=== PATIENT | male | born 1935 | race Caucasian/White ===

== ENCOUNTER 2019-12-02 07:23 | Outpatient (CLI) | payer MEDICARE, SELFPAY ==
[2019-12-02 07:34] LABS: Basophils Absolute Auto 0.14 K/mm3 (0.00-0.10); Basophils Percent Auto 1.8 % (0.0-1.0); Eosinophils Absolute Auto 0.37 K/mm3 (0.02-0.50); Eosinophils Percent Auto 4.7 % (1.0-6.0); Hematocrit 42.1 % (37.0-46.0); Hemoglobin 14.2 g/dL (12.4-15.3); Immature Granulocyte Percent A 1.3 % (0.0-0.0); Lymphocytes Absolute Auto 1.34 K/mm3 (1.10-4.50); Lymphocytes Percent Auto 17.1 % (18.0-42.0); Mean Corpuscular HGB Conc 33.7 g/dL (32.0-36.0); Mean Corpuscular Hemoglobin 34.8 pg (27.0-31.0); Mean Corpuscular Volume 103.2 fL (78.0-102.0); Monocytes Absolute Auto 1.03 K/mm3 (0.10-0.90); Monocytes Percent Auto 13.2 % (2.0-11.0); Neutrophils Absolute Auto 4.8 K/mm3 (1.7-7.2); Neutrophils Percent Auto 61.9 % (50.0-70.0); Platelet Count Result 202 K/mm3 (150-420); Red Blood Count 4.08 M/mm3 (4.70-6.10); Red Cell Distribution Width 12.7 % (11.6-14.4); White Blood Count 7.8 K/mm3 (4.8-10.8)
[2019-12-02 07:35] LABS: Add Urine Microscopic? NO; Appearance Urine Clear (Clear); Bilirubin Urine Negative (Negative); Blood Urine Negative (Negative); Color Urine Yellow (Yellow); Glucose Urine UA Negative (Negative); Ketones Urine Negative (Negative); Leukocyte Esterase Ur Negative (Negative); Nitrate Urine Negative (Negative); Protein Urine Negative (Negative)
[2019-12-02 08:17] LABS: Hemoglobin A1C 5.8 % (<5.7)
[2019-12-02 08:59] LABS: Alanine Aminotransferase 43 U/L (16-63); Albumin Level 3.8 g/dL (3.4-5.0); Alkaline Phosphatase 56 U/L (46-116); Anion Gap 12.5 mmol/L (7-16); Aspartate Amino Transferase 33 U/L (15-37); Bilirubin,Total 0.5 mg/dL (0.00-1.00); Blood Urea Nitrogen 17 mg/dL (7-18); Calcium 8.7 mg/dL (8.5-10.1); Carbon Dioxide 28 mmol/L (21-32); Chloride 105 mmol/L (98-108); Cholesterol 167 mg/dL (0-200); Creatine Kinase 160 U/L (39-308); Estimated Glomerular Filt Rate 42; Glucose 110 mg/dL (70-99); HDL Direct 43 mg/dL (40-60); LDL Cholesterol Calculated 89 mg/dL (<130); Osmolality Calculated 294 mOsm/kg (285-295); Potassium 4.5 mmol/L (3.5-5.1); Sodium 141 mmol/L (136-145); Total Protein 7.4 g/dL (6.4-8.2); Triglycerides 176 mg/dL (0-150)
== END 2019-12-02 07:24 | disposition home or self-care (01) ==
PROVIDERS: PCP Internal Medicine; Visit Provider Internal Medicine
DX: E78.2 Mixed hyperlipidemia (principal); R73.01 Impaired fasting glucose; I12.9 Hypertensive chronic kidney disease with stage 1 through stage 4 chronic kidney disease, or unspecified chronic kidney disease; N18.2 Chronic kidney disease, stage 2 (mild)
CPT/HCPCS: 36415; 80053; 80061; 81003; 82550; 83036; 85025

== ENCOUNTER 2020-04-21 10:11 | Outpatient (CLI) | payer MEDICARE, SELFPAY ==
[2020-04-21 10:25] LABS: Basophils Absolute Auto 0.12 K/mm3 (0.00-0.10); Basophils Percent Auto 1.3 % (0.0-1.0); Eosinophils Absolute Auto 0.39 K/mm3 (0.02-0.50); Eosinophils Percent Auto 4.3 % (1.0-6.0); Hematocrit 40.8 % (37.0-46.0); Hemoglobin 13.1 g/dL (12.4-15.3); Immature Granulocyte Percent A 1.1 % (0.0-0.0); Lymphocytes Absolute Auto 1.27 K/mm3 (1.10-4.50); Lymphocytes Percent Auto 14.1 % (18.0-42.0); Mean Corpuscular HGB Conc 32.1 g/dL (32.0-36.0); Mean Corpuscular Hemoglobin 34.6 pg (27.0-31.0); Mean Corpuscular Volume 107.7 fL (78.0-102.0); Monocytes Absolute Auto 1.15 K/mm3 (0.10-0.90); Monocytes Percent Auto 12.8 % (2.0-11.0); Neutrophils Percent Auto 66.4 % (50.0-70.0); Platelet Count Result 215 K/mm3 (150-420); Red Blood Count 3.79 M/mm3 (4.70-6.10); Red Cell Distribution Width 13.2 % (11.6-14.4)
[2020-04-21 10:27] LABS: Appearance Urine Clear (Clear); Bilirubin Urine Negative (Negative); Color Urine Yellow (Yellow); Glucose Urine UA Negative (Negative); Ketones Urine Negative (Negative); Leukocyte Esterase Ur Negative (Negative); Nitrate Urine Negative (Negative); Protein Urine Trace (Negative); Specific Grav Ur >= 1.030 (1.010-1.020); Urobilinogen Urine 0.2 mg/dL (0.2-1.0); pH Urine 5.5 (5.0-8.0)
[2020-04-21 10:36] LABS: Add Urine Microscopic? YES; Bacteria Urine 1+ /hpf; Blood Urine Trace-Intact (Negative); Squamous Epithelial Cell Urine Few /hpf (Few)
[2020-04-21 11:19] LABS: Anion Gap 9 mmol/L (8-16); Blood Urea Nitrogen 20 mg/dL (7-18); Calcium 9.3 mg/dL (8.5-10.1); Carbon Dioxide 27 mmol/L (21-32); Chloride 104 mmol/L (98-108); Estimated Glomerular Filt Rate 38; Glucose 99 mg/dL (70-99); Osmolality Calculated 292 mOsm/kg (285-295); Potassium 4.8 mmol/L (3.5-5.1); Prostate Specific Antigen 5.4 ng/mL (< OR = 4.0); Sodium 140 mmol/L (136-145)
== END 2020-04-21 10:12 | disposition home or self-care (01) ==
LOC: CHSLAB 10:13
PROVIDERS: PCP Internal Medicine; Visit Provider Internal Medicine
DX: N39.0 Urinary tract infection, site not specified (principal); N41.9 Inflammatory disease of prostate, unspecified
CPT/HCPCS: 36415; 80048; 81001; 84153; 85025

== ENCOUNTER 2020-05-05 10:41 | Outpatient (CLI) | payer MEDICARE, SELFPAY ==
[2020-05-05 12:11] LABS: Prostate Specific Antigen 4.9 ng/mL (< OR = 4.0)
== END 2020-05-05 10:42 | disposition home or self-care (01) ==
LOC: CHSLAB 10:43
PROVIDERS: PCP Internal Medicine; Visit Provider Internal Medicine
DX: R97.20 Elevated prostate specific antigen [PSA] (principal)
CPT/HCPCS: 36415; 84153

== ENCOUNTER 2020-06-05 10:54 | Outpatient (CLI) | payer MEDICARE, SELFPAY ==
[2020-06-05 11:19] LABS: Add Urine Microscopic? YES; Appearance Urine Clear (Clear); Bilirubin Urine Negative (Negative); Blood Urine Negative (Negative); Color Urine Yellow (Yellow); Glucose Urine UA Negative (Negative); Ketones Urine Negative (Negative); Leukocyte Esterase Ur 1+ (Negative); Nitrate Urine Negative (Negative); Protein Urine Negative (Negative); Urobilinogen Urine 0.2 mg/dL (0.2-1.0)
[2020-06-05 11:36] LABS: Bacteria Urine Trace /hpf; RBC Urine 0-2 /hpf (0-2); Squamous Epithelial Cell Urine Rare /hpf (Few)
[2020-06-05 12:36] LABS: Prostate Specific Antigen 2.7 ng/mL (< OR = 4.0)
== END 2020-06-05 10:55 | disposition home or self-care (01) ==
PROVIDERS: PCP Internal Medicine; Visit Provider Internal Medicine
DX: R39.14 Feeling of incomplete bladder emptying (principal); R97.20 Elevated prostate specific antigen [PSA]
CPT/HCPCS: 36415; 81001; 84153; 87086

== ENCOUNTER 2020-06-20 07:40 | Outpatient (CLI) | payer MEDICARE, SELFPAY ==
[2020-06-20 07:52] LABS: Appearance Urine Clear (Clear); Basophils Absolute Auto 0.14 K/mm3 (0.00-0.10); Basophils Percent Auto 1.8 % (0.0-1.0); Bilirubin Urine Negative (Negative); Color Urine Yellow (Yellow); Eosinophils Absolute Auto 0.33 K/mm3 (0.02-0.50); Eosinophils Percent Auto 4.2 % (1.0-6.0); Glucose Urine UA Negative (Negative); Hematocrit 42.1 % (37.0-46.0); Hemoglobin 13.7 g/dL (12.4-15.3); Immature Granulocyte Absolute 0.09 K/mm3 (0.00-0.00); Immature Granulocyte Percent A 1.2 % (0.0-0.0); Ketones Urine Negative (Negative); Leukocyte Esterase Ur Negative (Negative); Lymphocytes Percent Auto 16.7 % (18.0-42.0); Mean Corpuscular HGB Conc 32.5 g/dL (32.0-36.0); Mean Corpuscular Hemoglobin 33.8 pg (27.0-31.0); Mean Platelet Volume 9.8 fl (8.7-11.0); Monocytes Absolute Auto 0.99 K/mm3 (0.10-0.90); Monocytes Percent Auto 12.7 % (2.0-11.0); Neutrophils Absolute Auto 4.9 K/mm3 (1.7-7.2); Neutrophils Percent Auto 63.4 % (50.0-70.0); Nitrate Urine Negative (Negative); Platelet Count Result 187 K/mm3 (150-420); Protein Urine Negative (Negative); Red Blood Count 4.05 M/mm3 (4.70-6.10); Red Cell Distribution Width 12.7 % (11.6-14.4); Specific Grav Ur 1.025 (1.010-1.020); Urobilinogen Urine 0.2 mg/dL (0.2-1.0); White Blood Count 7.8 K/mm3 (4.8-10.8)
[2020-06-20 07:56] LABS: Add Urine Microscopic? YES; Bacteria Urine Trace /hpf; Blood Urine Trace (Negative); RBC Urine 0-2 /hpf (0-2); WBC Urine 0-3 /hpf (0-3)
[2020-06-20 08:04] LABS: Hemoglobin A1C 5.2 % (<5.7)
[2020-06-20 08:36] LABS: Alanine Aminotransferase 28 U/L (16-63); Albumin Level 3.9 g/dL (3.4-5.0); Alkaline Phosphatase 57 U/L (46-116); Anion Gap 8 mmol/L (8-16); Aspartate Amino Transferase 24 U/L (15-37); Bilirubin,Total 0.6 mg/dL (0.00-1.00); Blood Urea Nitrogen 21 mg/dL (7-18); Calcium 8.9 mg/dL (8.5-10.1); Carbon Dioxide 29 mmol/L (21-32); Chloride 102 mmol/L (98-108); Cholesterol 183 mg/dL (0-200); Estimated Glomerular Filt Rate 41; Glucose 101 mg/dL (70-99); HDL Direct 44 mg/dL (40-60); LDL Cholesterol Calculated 103 mg/dL (<130); Osmolality Calculated 291 mOsm/kg (285-295); Potassium 4.5 mmol/L (3.5-5.1); Sodium 139 mmol/L (136-145); Total Protein 7.9 g/dL (6.4-8.2); Triglycerides 181 mg/dL (0-150)
== END 2020-06-20 07:41 | disposition home or self-care (01) ==
LOC: CHSLAB 07:42
PROVIDERS: PCP Internal Medicine; Visit Provider Internal Medicine
DX: E78.2 Mixed hyperlipidemia (principal); I12.9 Hypertensive chronic kidney disease with stage 1 through stage 4 chronic kidney disease, or unspecified chronic kidney disease; N18.30 Chronic kidney disease, stage 3 unspecified; R73.01 Impaired fasting glucose
CPT/HCPCS: 36415; 80053; 80061; 81001; 83036; 85025

== ENCOUNTER 2020-08-09 13:21 | Outpatient (CLI) | payer MEDICARE, SELFPAY ==
--- NOTE | ~2020-08-09 | US_ITS ---
EXAMINATION: US carotid duplex BI DATE: 08/09/2020 14:15 INDICATION: Bilateral carotid stenosis. TECHNIQUE: Grayscale, color Doppler, and pulsed Doppler images of the cervical carotid arteries were obtained. The degree of vessel stenosis is placed in one of the following categories: normal, <50%, 5 0-69%, >=70% but less than near-occlusion, near-occlusion, or total occlusion. Note that percent sten osis relative to normal distal artery lumen diameter is indirectly measured from velocity measurement s as described by Blu, et al. Radiology 2003; 229:340-346. COMPARISON: Ultrasound 02/13/2018 FINDINGS: RIGHT: The right common carotid artery (CCA) peak systolic velocity (PSV) is 111 cm/s. The right internal ca rotid artery (ICA) PSV is 108 cm/s. The right ICA end-diastolic velocity (EDV) is 18 cm/s. The right ICA/CCA PSV ratio is 1.0. Grayscale and color Doppler images yield an estimate of <50% diameter reduc tion from plaque in the ICA. There is antegrade flow in the right vertebral artery. LEFT: The left CCA PSV is 119 cm/s. The left ICA PSV is 81 cm/s. The left ICA EDV is 23 cm/s. The left ICA/ CCA PSV ratio is 0.7. Grayscale and color Doppler images yield an estimate of <50% diameter reduction from plaque in the ICA. There is antegrade flow in the left vertebral artery. IMPRESSION: 1. <50% stenosis in the right internal carotid artery. 2. <50% stenosis in the left internal carotid artery. Reviewed, dictated and finalized at location A.
== END 2020-08-09 13:22 | disposition home or self-care (01) ==
LOC: CHSLAB 13:25
PROVIDERS: PCP Internal Medicine; Visit Provider Internal Medicine
DX: I65.23 Occlusion and stenosis of bilateral carotid arteries (principal)
CPT/HCPCS: 93880

== ENCOUNTER 2020-12-21 07:25 | Outpatient (CLI) | payer MEDICARE, SELFPAY ==
[2020-12-21 07:37] LABS: Add Urine Microscopic? YES; Appearance Urine Clear (Clear); Basophils Absolute Auto 0.12 K/mm3 (0.00-0.10); Basophils Percent Auto 1.6 % (0.0-1.0); Bilirubin Urine Negative (Negative); Blood Urine 1+ (Negative); Color Urine Light Yellow (Yellow); Eosinophils Absolute Auto 0.32 K/mm3 (0.02-0.50); Eosinophils Percent Auto 4.3 % (1.0-6.0); Glucose Urine UA Negative (Negative); Hematocrit 42.2 % (37.0-46.0); Hemoglobin 13.8 g/dL (12.4-15.3); Immature Granulocyte Absolute 0.06 K/mm3 (0.00-0.00); Immature Granulocyte Percent A 0.8 % (0.0-0.0); Ketones Urine Negative (Negative); Leukocyte Esterase Ur Negative LEU/UL (Negative); Lymphocytes Absolute Auto 1.27 K/mm3 (1.10-4.50); Lymphocytes Percent Auto 17.2 % (18.0-42.0); Mean Corpuscular HGB Conc 32.7 g/dL (32.0-36.0); Mean Corpuscular Hemoglobin 34.3 pg (27.0-31.0); Monocytes Absolute Auto 0.93 K/mm3 (0.10-0.90); Monocytes Percent Auto 12.6 % (2.0-11.0); Neutrophils Absolute Auto 4.7 K/mm3 (1.7-7.2); Neutrophils Percent Auto 63.5 % (50.0-70.0); Nitrate Urine Negative (Negative); Platelet Count Result 202 K/mm3 (150-420); Protein Urine Negative (Negative); Red Blood Count 4.02 M/mm3 (4.70-6.10); Red Cell Distribution Width 12.5 % (11.6-14.4); Urobilinogen Urine 0.2 mg/dL (0.2-1.0); White Blood Count 7.4 K/mm3 (4.8-10.8)
[2020-12-21 08:16] LABS: Alanine Aminotransferase 39 U/L (16-63); Alkaline Phosphatase 62 U/L (46-116); Anion Gap 10 mmol/L (8-16); Aspartate Amino Transferase 27 U/L (15-37); Bilirubin,Total 0.7 mg/dL (0.00-1.00); Blood Urea Nitrogen 21 mg/dL (7-18); Calcium 8.9 mg/dL (8.5-10.1); Carbon Dioxide 29 mmol/L (21-32); Chloride 103 mmol/L (98-108); Cholesterol 183 mg/dL (0-200); Creatine Kinase 143 U/L (39-308); Estimated Glomerular Filt Rate 42; Glucose 125 mg/dL (70-99); HDL Direct 44 mg/dL (40-60); LDL Cholesterol Calculated 99 mg/dL (<130); Osmolality Calculated 298 mOsm/kg (285-295); Potassium 4.2 mmol/L (3.5-5.1); Sodium 142 mmol/L (136-145); Total Protein 7.6 g/dL (6.4-8.2); Triglycerides 199 mg/dL (0-150)
[2020-12-21 08:21] LABS: Bacteria Urine Trace /hpf; RBC Urine 0-2 /hpf (0-2); WBC Urine None seen /hpf (0-3)
== END 2020-12-21 07:26 | disposition home or self-care (01) ==
LOC: CHSLAB 07:26
PROVIDERS: PCP Internal Medicine; Visit Provider Internal Medicine
DX: E78.2 Mixed hyperlipidemia (principal); I12.9 Hypertensive chronic kidney disease with stage 1 through stage 4 chronic kidney disease, or unspecified chronic kidney disease; N18.30 Chronic kidney disease, stage 3 unspecified; N39.0 Urinary tract infection, site not specified
CPT/HCPCS: 36415; 80053; 80061; 81001; 82550; 85025

== ENCOUNTER 2021-02-01 19:39 | Emergency (ER) | payer MEDICARE, SELFPAY ==
--- NOTE | ~2021-02-01 | XR_ITS ---
EXAMINATION: XR chest 2V 02/01/2021 20:18 INDICATION: Shortness of breath with cough PROCEDURE: 2 view chest COMPARISON: 10/23/2012 FINDINGS: The lungs are clear. The cardiomediastinal silhouette is within normal limits. There are no pleural effusions. There is no pneumothorax suspected. There is apical pleural thickening/scarri ng. IMPRESSION: 1: NO ACUTE CARDIOPULMONARY DISEASE. Reviewed, dictated and finalized at location A.
[2021-02-01 20:01] VITALS: BP 154/62; PULSE 93; RESP 20; TEMP 37.3; O2SAT 95
[2021-02-01 20:14] LABS: Basophils Absolute Auto 0.08 K/mm3 (0.00-0.10); Basophils Percent Auto 0.7 % (0.0-1.0); Eosinophils Absolute Auto 0.06 K/mm3 (0.02-0.50); Eosinophils Percent Auto 0.5 % (1.0-6.0); Hematocrit 37.4 % (37.0-46.0); Hemoglobin 12.3 g/dL (12.4-15.3); Immature Granulocyte Percent A 0.9 % (0.0-0.0); Lymphocytes Absolute Auto 0.77 K/mm3 (1.10-4.50); Lymphocytes Percent Auto 6.9 % (18.0-42.0); Mean Corpuscular HGB Conc 32.9 g/dL (32.0-36.0); Mean Corpuscular Hemoglobin 34.1 pg (27.0-31.0); Mean Corpuscular Volume 103.6 fL (78.0-102.0); Mean Platelet Volume 10.3 fl (8.7-11.0); Monocytes Absolute Auto 1.28 K/mm3 (0.10-0.90); Monocytes Percent Auto 11.4 % (2.0-11.0); Neutrophils Absolute Auto 8.9 K/mm3 (1.7-7.2); Neutrophils Percent Auto 79.6 % (50.0-70.0); Platelet Count Result 176 K/mm3 (150-420); Red Blood Count 3.61 M/mm3 (4.70-6.10); Red Cell Distribution Width 12.8 % (11.6-14.4); White Blood Count 11.2 K/mm3 (4.8-10.8)
[2021-02-01 20:30] LABS: Add Urine Microscopic? YES; Appearance Urine Clear (Clear); Bilirubin Urine Negative (Negative); Blood Urine 2+ (Negative); Color Urine Yellow (Yellow); Glucose Urine UA Negative (Negative); Ketones Urine 1+ (Negative); Leukocyte Esterase Ur Negative (Negative); Nitrate Urine Negative (Negative); Protein Urine 2+ (Negative); pH Urine 6.5 (5.0-8.0)
[2021-02-01 20:31] LABS: Alanine Aminotransferase 31 U/L (16-63); Albumin Level 3.8 g/dL (3.4-5.0); Alkaline Phosphatase 57 U/L (46-116); Anion Gap 10 mmol/L (8-16); Aspartate Amino Transferase 28 U/L (15-37); Bilirubin,Total 1.1 mg/dL (0.00-1.00); Calcium 9.3 mg/dL (8.5-10.1); Carbon Dioxide 27 mmol/L (21-32); Chloride 98 mmol/L (98-108); Estimated CRCL calculation 22 ml/min; Estimated Glomerular Filt Rate 32; Glucose 141 mg/dL (70-99); Potassium 4.6 mmol/L (3.5-5.1); Sodium 135 mmol/L (136-145); Total Protein 8.6 g/dL (6.4-8.2)
[2021-02-01 20:36] LABS: Blood Urea Nitrogen 24 mg/dL (7-18); Osmolality Calculated 286 mOsm/kg (285-295)
--- NOTE | 2021-02-01 20:36 | ED.AMS ---
HPI - Altered Mental Status General Chief Complaint: Weakness Stated Complaint: confusion, congestion Source: patient and family Mode of arrival: ambulatory Limitations: no limitations History of Present Illness HPI narrative: This is a 85-year-old gentleman that lives with family family brings him in because he has had some mild confusion with some currently no fever or chills no shortness of breath no focal weakness no chest pain no abdominal pain, the patient has a history of hypertension, hyperlipidemia and history of BPH and has had prior urinary tract infections. complaint: altered mental status Onset (ago): hour(s) Timing confirmed by: family member Severity: mild Related Data Home Medications Medication Instructions Recorded Confirmed amlodipine 2.5 mg PO HS 02/01/21 02/01/21 aspirin [Baby Aspirin] 81 mg PO HS 02/01/21 02/01/21 citalopram 10 mg PO DAILY 02/01/21 02/01/21 simvastatin 10 mg PO DAILY 02/01/21 02/01/21 tamsulosin 0.4 mg PO HS 02/01/21 02/01/21 Allergies Allergy/AdvReac Type Severity Reaction Status Date / Time No Known Allergies Allergy Verified 02/01/21 20:05 Review of Systems Review of Systems: All systems reviewed & are unremarkable except as noted in HPI and below PMFSH Past Medical History Medical History BPH (benign prostatic hyperplasia) HLD (hyperlipidemia) HTN (hypertension) Exam Const: General: no acute distress and confusion Orientation/consciousness: patient oriented x3 HENMT: Head: normal to inspection Eyes: Conjunctivae: conjunctivae normal Pupils: Equal, round and reactive pupils present Neck: Neck: normal visual inspection and no meningeal signs Chest: Chest palpation & inspection: normal inspection of the chest Resp: Effort & Inspection: normal respiratory effort Auscultation: clear to auscultation bilaterally Cardio: Rate: regular rate Rhythm: regular rhythm GI: GI Palp: Yes Soft to palpation Percussion: Yes normal to percussion : Testes: Testes normal Back/Spine/Pelvis: Back: no CVA tenderness Skin: General skin exam: normal color Rashes: no rashes Neuro: General: moves all extremities, no meningeal signs and no focal motor deficits Extrem: General: normal to inspection and no pedal edema Psych: Mental Status: mental status grossly normal Affect: normal affect Attitude: cooperative Course Course Emergency Course: patient resting comfortably afebrile some mild confusion according to family and this is is a behavior after he is having a urinary tract infection which we will give a g of ceftriaxone IM. Vital Signs Vital signs: Vital Signs Temperature 37.3 C 02/01/21 20:01 Pulse Rate 93 02/01/21 20:01 Respiratory Rate 20 02/01/21 20:01 Blood Pressure 154/62 H 02/01/21 20:01 Pulse Oximetry 95 02/01/21 20:01 Temperature 37.3 C 02/01/21 20:01 Pulse Rate 93 02/01/21 20:01 Respiratory Rate 20 02/01/21 20:01 Blood Pressure 154/62 H 02/01/21 20:01 Pulse Oximetry 95 02/01/21 20:01 MDM - Altered Mental Status Lab Data Result diagrams: 02/01/21 20:10 02/01/21 20:10 Labs: Lab Results 02/01/21 02/01/21 02/01/21 Range/Units 20:10 20:10 20:10 WBC 11.2 H (4.8-10.8) K/mm3 RBC 3.61 L (4.70-6.10) M/mm3 Hgb 12.3 L (12.4-15.3) g/dL Hct 37.4 (37.0-46.0) % MCV 103.6 H (78.0-102.0) fL MCH 34.1 H (27.0-31.0) pg MCHC 32.9 (32.0-36.0) g/dL RDW 12.8 (11.6-14.4) % Plt Count 176 (150-420) K/mm3 MPV 10.3 (8.7-11.0) fl Immature Gran % (Auto) 0.9 H (0.0-0.0) % Neut % (Auto) 79.6 H (50.0-70.0) % Lymph % (Auto) 6.9 L (18.0-42.0) % [place] % (Auto) 11.4 H (2.0-11.0) % Eos % (Auto) 0.5 L (1.0-6.0) % Baso % (Auto) 0.7 (0.0-1.0) % Lymph # (Auto) 0.77 L (1.10-4.50) K/mm3 [place] # (Auto) 1.28 H (0.10-0.90) K/mm3 Eos # (Auto) 0.06 (0.02-0.50) K/mm3
[2021-02-01 20:41] LABS: Bacteria Urine Trace /hpf; Mucus Urine Rare /lpf; Squamous Epithelial Cell Urine None seen /hpf (Few); WBC Urine 0-3 /hpf (0-3)
[2021-02-01] MEDS: cefTRIAXone 1 GM VIAL IM (20:53)
[2021-02-01] MEDS: LIDOCAINE HCL 1% LOCAL INJ 20 ML VIAL (20:53)
[2021-02-01 21:15] VITALS: BP 129/63; PULSE 87; RESP 20; TEMP 37.1; O2SAT 94
== END 2021-02-01 21:16 | disposition home or self-care (01) ==
PROVIDERS: Emergency Provider Emergency Medicine; PCP Internal Medicine
DX: N30.00 Acute cystitis without hematuria (principal); I10 Essential (primary) hypertension; E78.5 Hyperlipidemia, unspecified
CPT/HCPCS: 36415; 71046; 80053; 81001; 85025; 96372; 99283; J0696

== ENCOUNTER 2021-02-03 18:46 | Inpatient (IN) | payer MEDICARE, SELFPAY ==
--- NOTE | ~2021-02-03 | CT_ITS ---
EXAMINATION: CT chest high resolution wo co DATE: 02/08/2021 09:38 INDICATION: Comparison d/t overnight change 02/07/2021 weakness. dx w/ COVID on 02/03/21 TECHNIQUE: Computed tomography (CT) of the chest was performed without intravenous contrast. Addition al 3D reconstructions utilizing coronal maximum intensity projection (MIP) were performed. Automated exposure control and iterative reconstruction technique were employed. The dose-length product was 25 5.68 mGy-cm. COMPARISON: 02/06/2021 FINDINGS: Again seen are bilateral scattered regions of patchy groundglass opacities and more dense consolidati on throughout both lungs with lower lung predominance. There is very subtle interval change with slig ht decrease in size of several of the region of groundglass opacity but oftentimes with suggestion of developing coalescence into smaller regions of increasing density. No new or enlarging regions of svitlana ng disease. No pleural effusion or pneumothorax. Heart size is normal. Atherosclerotic coronary arter y calcification. No pericardial effusion. Thoracic aorta is normal in caliber. No pathologically enla rged thoracic lymphadenopathy. Calcified gallstones at the visualized neck of the gallbladder which i s largely excluded from the [id number]. Couple smaller stones along the cystic duct. Moderate lowe r cervical and mild thoracic spondylosis. Chronic mild anterior wedging at T8. IMPRESSION: 1. Mild evolution of diffuse bilateral lung disease with appearance favoring COVID pneumonia with coa lescence of portions of the groundglass opacities into smaller more dense regions of consolidation/at electasis. No new or enlarging regions of lung disease. Reviewed, dictated and finalized at location A. IMPRESSION: 1. Mild evolution of diffuse bilateral lung disease with appearance favoring CO VID pneumonia with coalescence of portions of the groundglass opacities into sm aller more dense regions of consolidation/atelectasis. No new or enlarging leatha ons of lung disease.
--- NOTE | ~2021-02-03 | XR_ITS ---
XR chest 1V portable 02/16/2021 12:59 Indication: Shortness of breath and cough. Covid 19. Procedure: AP portable chest Comparison: 02/12/2021 Findings: Bibasilar airspace disease, compatible with pneumonia. No significant effusion. Heart size normal. No pneumothorax. No acute osseous abnormality. Impression: 1: Bibasilar airspace disease, compatible with pneumonia. Reviewed, dictated and finalized at location A. Impression: 1: Bibasilar airspace disease, compatible with pneumonia.
--- NOTE | ~2021-02-03 | XR_ITS ---
XR chest 1V portable 02/12/2021 08:52 Indication: Elevated white count. Covid. Shortness of breath. Procedure: AP portable chest Comparison: 02/03/2021 Findings: Bibasilar airspace disease, compatible with pneumonia. No significant interval change. No s ignificant effusion or pneumothorax. No acute osseous abnormality. Impression: 1: Stable bibasilar airspace disease, compatible with pneumonia. Reviewed, dictated and finalized at location A. Impression: 1: Stable bibasilar airspace disease, compatible with pneumonia.
--- NOTE | ~2021-02-03 | CT_ITS ---
EXAMINATION: CTA chest PE protocol DATE: 02/06/2021 12:08 INDICATION: Hypoxia, weakness and TECHNIQUE: Computed tomography angiography (CTA) of the chest was performed with 100 mL Omnipaque-350 intravenous contrast timed to evaluate the pulmonary arteries. Coronal maximum intensity projection 3D-reconstructions were created by the technologist. The dose-length product (DLP) was 386.25 mGy-cm. Automated exposure control and iterative reconstruction technique were employed. COMPARISON: None. FINDINGS: The pulmonary arteries are well-opacified. No pulmonary embolism is identified. There are g roundglass opacities throughout the lungs, worst in the lower lobes and posterior aspect of the right upper lobe. There is no pleural effusion or pneumothorax. There is mild mediastinal and hilar lympha denopathy. The heart size is normal. Stones are present in the nondistended gallbladder. There is mil d thoracic spondylosis. IMPRESSION: 1. No pulmonary embolus identified. 2. Diffuse lung disease in a pattern consistent with COVID 19 pneumonia. Reviewed, dictated and finalized at location A.
--- NOTE | ~2021-02-03 | XR_ITS ---
XR chest 1V portable 02/03/2021 19:19 Indication: Weakness Procedure: AP portable chest Comparison: 05/01/2009 Findings: Patchy infiltrates of the mid and lower lung zones, compatible with pneumonia. No significa nt effusion. No pneumothorax. No edema. No acute osseous abnormality. Impression: 1: Patchy bilateral infiltrates, compatible with pneumonia. Reviewed, dictated and finalized at location A. Impression: 1: Patchy bilateral infiltrates, compatible with pneumonia.
[2021-02-03 19:00] VITALS: BP 115/54; PULSE 88; RESP 20; TEMP 37.2; O2SAT 93
--- NOTE | 2021-02-03 19:08 | ECG_ITS ---
Measurements Intervals [place] Rate: 76 P: 53 CO: 167 QRS: -1 QRSD: 123 T: 1 QT: 371 QTc: 418 Interpretive Statements SINUS RHYTHM RIGHT BUNDLE BRANCH BLOCK BASELINE ARTIFACT- II, III, AVR, AVF ABNORMAL ECG Electronically Signed On 02-05-2021 7:54:12 CDT by Rudolph Gutiererz D.O.
--- NOTE | 2021-02-03 19:19 | ED.WEAKNESS ---
HPI - Weakness General Chief complaint: Weakness Stated complaint: Feeling ill/disoriented Source: patient and family Mode of arrival: ambulatory Limitations: no limitations History of Present Illness HPI Narrative: This is a 5-year-old home history depression BPH chronic kidney disease presents with increasing weakness and had a couple of falls recently, according to family had subjective increase in temperature, fever with no shortness of breath no chest pain no abdominal pain has had progressive weakness was seen here 2 days ago and diagnosed with UTI and started on antibiotics. But the family felt that after couple of falls he is progressively getting weaker confusion is about the same with no improvement since his visit here 2 days ago. Patient denies chest pain, no shortness of breath no abdominal pain, no flank pain denies dysuria or hematuria. MD Complaint: generalized weakness Onset (ago): day(s) Duration: progressively worsening Location: generalized Severity: moderate Relieving factors: none Exacerbating factors: none Associated symptoms: confusion, fever/chills and loss of appetite Related Data Home Medications Medication Instructions Recorded Confirmed amlodipine 2.5 mg PO HS 02/01/21 02/03/21 aspirin [Baby Aspirin] 81 mg PO HS 02/01/21 02/03/21 citalopram 10 mg PO DAILY 02/01/21 02/03/21 simvastatin 10 mg PO DAILY 02/01/21 02/03/21 tamsulosin 0.4 mg PO HS 02/01/21 02/03/21 Allergies Allergy/AdvReac Type Severity Reaction Status Date / Time No Known Allergies Allergy Verified 02/01/21 20:05 Review of Systems Review of Systems: All systems reviewed & are unremarkable except as noted in HPI and below PMFSH Past Medical History Medical History BPH (benign prostatic hyperplasia) HLD (hyperlipidemia) HTN (hypertension) Exam Const: General: no acute distress Orientation/consciousness: patient oriented x3 HENMT: Head: normal to inspection Eyes: Pupils: Equal, round and reactive pupils present EOM: EOMs intact bilaterally Direct Ophthalmoscopy: no photophobia Neck: Neck: normal visual inspection, no lymphadenopathy and no meningeal signs Chest: Chest palpation & inspection: normal inspection of the chest Resp: Effort & Inspection: normal respiratory effort Auscultation: clear to auscultation bilaterally Cardio: Rate: regular rate Rhythm: regular rhythm GI: GI Palp: Yes Soft to palpation Percussion: Yes normal to percussion Urinary Catheter: Urinary Catheter: patent and draining Skin: General skin exam: normal color Rashes: no rashes Neuro: General: patient oriented x3, moves all extremities, no meningeal signs and no focal motor deficits Extrem: General: normal to inspection and no pedal edema Psych: Appearance: disheveled Mental Status: mental status grossly normal Affect: normal affect Course Course Emergency Course: X-ray and labs reviewed with patient and family and will admit the patient to general medicine Critical Care Time Critical Care Time Critical Care Time: No Discharge Plan Discharge Clinical Impression: Pneumonia Qualifiers: Pneumonia type: due to unspecified organism Laterality: unspecified laterality Lung location: lower lobe of lung Qualified Code(s): J18.9 - Pneumonia, unspecified organism Acute renal failure Qualifiers: Acute renal failure type: unspecified Qualified Code(s): N17.9 - Acute kidney failure, unspecified Patient Disposition: Still a Patient Condition: Guarded Prognosis Prescriptions: No Action citalopram 10 mg Tablet 10 mg PO DAILY RF: 0 simvastatin 10 mg Tablet 10 mg PO DAILY RF: 0 amlodipine 2.5 mg Tablet 2.5 mg PO HS RF: 0 tamsulosin 0.4 mg capsule 0.4 mg PO HS RF: 0 aspirin [Baby Aspirin] 81 mg Tablet,Chewable 81 mg PO HS RF: 0 sulfamethoxazole-trimethoprim [Bactrim DS] 800-160 mg tablet 1 tablet PO Q12H Qty: 14 RF: 0 Foll
[2021-02-03] MEDS: SODIUM CHLORIDE 0.9% IV 1,000 ML 999 ML IV CONT (19:27)
[2021-02-03 19:53] VITALS: BP 127/57; RESP 18; TEMP 37.2; O2SAT 94
[2021-02-03 19:56] LABS: Basophils Absolute Auto 0.07 K/mm3 (0.00-0.10); Basophils Percent Auto 0.5 % (0.0-1.0); Eosinophils Absolute Auto 0.02 K/mm3 (0.02-0.50); Eosinophils Percent Auto 0.1 % (1.0-6.0); Hematocrit 34.1 % (37.0-46.0); Hemoglobin 11.6 g/dL (12.4-15.3); Immature Granulocyte Absolute 0.12 K/mm3 (0.00-0.00); Immature Granulocyte Percent A 0.8 % (0.0-0.0); Lymphocytes Absolute Auto 0.35 K/mm3 (1.10-4.50); Lymphocytes Percent Auto 2.4 % (18.0-42.0); Mean Corpuscular Hemoglobin 34.9 pg (27.0-31.0); Mean Corpuscular Volume 102.7 fL (78.0-102.0); Mean Platelet Volume 11.3 fl (8.7-11.0); Monocytes Percent Auto 8.9 % (2.0-11.0); Neutrophils Absolute Auto 12.7 K/mm3 (1.7-7.2); Neutrophils Percent Auto 87.3 % (50.0-70.0); Platelet Count Result 185 K/mm3 (150-420); Red Blood Count 3.32 M/mm3 (4.70-6.10); White Blood Count 14.6 K/mm3 (4.8-10.8)
[2021-02-03 20:04] LABS: INR 1.1; Partial Thromboplastin Time 26.8 SEC (23.90-30.70); Prothrombin Time 11.3 Seconds (9.50-12.10)
[2021-02-03 20:09] LABS: Lactic Acid Reflex 1.3 mmol/L (0.4-2.0)
[2021-02-03 20:12] LABS: Alanine Aminotransferase 133 U/L (16-63); Albumin Level 3.2 g/dL (3.4-5.0); Alkaline Phosphatase 52 U/L (46-116); Anion Gap 12 mmol/L (8-16); Aspartate Amino Transferase 565 U/L (15-37); Bilirubin,Total 0.7 mg/dL (0.00-1.00); Blood Urea Nitrogen 33 mg/dL (7-18); Calcium 8.7 mg/dL (8.5-10.1); Carbon Dioxide 24 mmol/L (21-32); Chloride 97 mmol/L (98-108); Estimated CRCL calculation 19 ml/min; Estimated Glomerular Filt Rate 27; Glucose 121 mg/dL (70-99); Osmolality Calculated 284 mOsm/kg (285-295); Potassium 4.4 mmol/L (3.5-5.1); Sodium 133 mmol/L (136-145); Total Protein 7.7 g/dL (6.4-8.2)
[2021-02-03 20:17] LABS: SARS-CoV-2 Ag Positive (Negative)
[2021-02-03 20:19] LABS: CRP 19.1 mg/dL (0.0-0.9); Troponin I 73.1 ng/L (0.00-60.4)
[2021-02-03 20:20] LABS: NT Pro B Type Natriuretic Pept 404 pg/mL (0-450)
--- NOTE | 2021-02-03 20:37 | PC.NURSE ---
Call placed to floor for bed for full admit. Pts. daughters informed on POC for admission. Pt to go to Rm 210
[2021-02-03 21:06] VITALS: BP 115/61; PULSE 80; RESP 20; TEMP 37.5; O2SAT 94
[2021-02-03 21:48] VITALS: BP 121/63; PULSE 79; RESP 18; TEMP 36.9; O2SAT 95
[2021-02-03] MEDS: ASPIRIN 81 MG CHEWABLE TABLET PO (22:13)
[2021-02-03] MEDS: amLODIPine BESYLATE 2.5 MG TABLET PO (22:13)
[2021-02-03] MEDS: SODIUM CHLORIDE 0.9% IV 1,000 ML 100 ML IV CONT (22:13)
[2021-02-03] MEDS: TAMSULOSIN HCL 0.4 MG CAPSULE PO (22:13)
--- NOTE | 2021-02-03 22:20 | PC.NURSE ---
PAtient admitted to room 210 from ER, is alert and oriented times 3 with no c/o pain, oriemnted to call light and room.
[2021-02-03 22:34] LABS: Add Urine Microscopic? YES; Bilirubin Urine Negative (Negative); Blood Urine 3+ (Negative); Color Urine Yellow (Yellow); Glucose Urine UA Negative (Negative); Ketones Urine 1+ (Negative); Leukocyte Esterase Ur Negative (Negative); Nitrate Urine Negative (Negative); Protein Urine 1+ (Negative); Specific Grav Ur >= 1.030 (1.010-1.020); Urobilinogen Urine 0.2 mg/dL (0.2-1.0)
[2021-02-03 22:41] LABS: Amorphous Sediment Urine Moderate; Appearance Urine Sl Cloudy (Clear); RBC Urine 0-2 /hpf (0-2); Squamous Epithelial Cell Urine Rare /hpf (Few); WBC Urine None seen /hpf (0-3)
[2021-02-03 22:42] LABS: Bacteria Urine 2+ /hpf; Mucus Urine Moderate /lpf
[2021-02-03 23:57] LABS: Troponin I 64.9 ng/L (0.00-60.4)
[2021-02-03 23:58] VITALS: BP 112/53; PULSE 68; PULSE 69; RESP 20; TEMP 37.1; O2SAT 94
[2021-02-04] VITALS (10 sets, daily range): BP systolic 130–164; BP diastolic 55–66; PULSE 69–102; RESP 16–20; TEMP 36.7–39.4; O2SAT 90–96
[2021-02-04 05:38] LABS: Basophils Absolute Auto 0.07 K/mm3 (0.00-0.10); Basophils Percent Auto 0.5 % (0.0-1.0); Eosinophils Absolute Auto 0.08 K/mm3 (0.02-0.50); Eosinophils Percent Auto 0.6 % (1.0-6.0); Hematocrit 32.6 % (37.0-46.0); Hemoglobin 10.8 g/dL (12.4-15.3); Immature Granulocyte Absolute 0.12 K/mm3 (0.00-0.00); Immature Granulocyte Percent A 0.9 % (0.0-0.0); Lymphocytes Absolute Auto 0.68 K/mm3 (1.10-4.50); Mean Corpuscular HGB Conc 33.1 g/dL (32.0-36.0); Mean Corpuscular Hemoglobin 34.5 pg (27.0-31.0); Mean Corpuscular Volume 104.2 fL (78.0-102.0); Monocytes Absolute Auto 1.25 K/mm3 (0.10-0.90); Monocytes Percent Auto 9.3 % (2.0-11.0); Neutrophils Absolute Auto 11.3 K/mm3 (1.7-7.2); Neutrophils Percent Auto 83.7 % (50.0-70.0); Platelet Count Result 175 K/mm3 (150-420); Red Blood Count 3.13 M/mm3 (4.70-6.10); Red Cell Distribution Width 13.2 % (11.6-14.4); White Blood Count 13.5 K/mm3 (4.8-10.8)
[2021-02-04 05:57] LABS: Alanine Aminotransferase 116 U/L (16-63); Albumin Level 2.8 g/dL (3.4-5.0); Alkaline Phosphatase 47 U/L (46-116); Anion Gap 10 mmol/L (8-16); Aspartate Amino Transferase 440 U/L (15-37); Bilirubin,Total 0.5 mg/dL (0.00-1.00); Blood Urea Nitrogen 30 mg/dL (7-18); Carbon Dioxide 24 mmol/L (21-32); Chloride 102 mmol/L (98-108); Estimated CRCL calculation 22 ml/min; Estimated Glomerular Filt Rate 32; Glucose 98 mg/dL (70-99); Osmolality Calculated 288 mOsm/kg (285-295); Potassium 4.2 mmol/L (3.5-5.1); Sodium 136 mmol/L (136-145); Total Protein 6.8 g/dL (6.4-8.2)
[2021-02-04 06:13] LABS: CRP > 10.6 mg/dL (0.0-0.9)
[2021-02-04 06:14] LABS: Troponin I 52.3 ng/L (0.00-60.4)
[2021-02-04] MEDS: SODIUM CHLORIDE 0.9% IV 1,000 ML 100 ML IV CONT ×2 (08:30→17:50)
--- NOTE | 2021-02-04 08:57 | PM.IMHP ---
H&P: HPI History of Present Illness Date/Time: 02/04/21 08:57 this is a 85-year-old patient who presented to urgent care with complaints of multiple falls, fatigue and not feeling well. Patient has a past medical history of BPH, HLD, hypertension. According to patient a couple of weeks ago he started to feel bad he notes that he no longer had taste, he felt fatigued, with an unstable gait. Patient notes that he fell multiple times. He has multiple abrasions on his forehead and the knees bilateral. He did recently visited our ED on 02/01/2021 for mild confusion at that time he was treated for urinary tract infection with Bactrim. Patient notes that his condition did not improve so he came back to our hospital ED. Patient did test positive for Covid he does not have any respiratory symptoms. Patient has been fully vaccinated and does not have any known exposure to Covid. Vital signs 135/55, 94, 20, 98.6, 95% on 3 L nasal cannula. WBCs 14.6, hemoglobin 11.6, hematocrit 34.1, platelets 185, sodium 133, potassium 4.4, BUN 33, creatinine 2.3, lactic acid 1.3, AST 565, ALT 133, troponin 73.1, CRP 19.1, UA positive for protein ketones blood and bacteria, Covid positive. The patient denies SOB, CP, palpitation, extremity numbness, lightheadedness, dizziness, constipation, diarrhea, or fever. Patient does complain of chills and fatigue. <PATY Carrillo - Last Filed: 02/04/21 09:20> Chief Complaint: Fatigue, unstable gait, loss of taste buds <PATY Carrillo - Last Filed: 02/04/21 09:20> Review of Systems Review of Systems: A 14 organ system Review of Systems was performed and pertinent positives included in the HPI, otherwise remaining ROS is negative. <PATY Carrillo - Last Filed: 02/04/21 09:20> [facility] Past Medical History Medical History: Medical History BPH (benign prostatic hyperplasia) HLD (hyperlipidemia) HTN (hypertension) <PATY Carrillo - Last Filed: 02/04/21 09:20> Social History Social History: Social History Smoking status: Never smoker Alcohol intake: current Substance use: never Substance use type: does not use Spiritual care concerns: No <PATY Carrillo - Last Filed: 02/04/21 09:20> Meds Home Medications and Allergies Home medications: Home Medications Medication Instructions Recorded Confirmed Type amlodipine 2.5 mg PO HS 02/01/21 02/03/21 History aspirin [Baby Aspirin] 81 mg PO HS 02/01/21 02/03/21 History citalopram 10 mg PO DAILY 02/01/21 02/03/21 History simvastatin 10 mg PO DAILY 02/01/21 02/03/21 History sulfamethoxazole-trimethoprim 1 tablet PO Q12H #14 tablet 02/01/21 02/03/21 Rx [Bactrim DS] tamsulosin 0.4 mg PO HS 02/01/21 02/03/21 History <PATY Carrillo - Last Filed: 02/04/21 09:20> Allergies/Adverse reactions: Allergies Allergy/AdvReac Type Severity Reaction Status Date / Time No Known Allergies Allergy Verified 02/01/21 20:05 <PATY Carrillo - Last Filed: 02/04/21 09:20> Vital Signs Vital Signs - 24 hr 02/03/21 19:00 02/03/21 19:53 02/03/21 21:06 Temperature 99 F 99 F 99.5 F Pulse Rate 88 80 Respiratory Rate 20 18 20 Blood Pressure 115/54 L 127/57 L 115/61 Pulse Oximetry 93 94 94 02/03/21 21:48 02/03/21 23:58 02/04/21 04:00 Temperature 98.5 F 98.8 F 98.6 F Pulse Rate 79 69 94 Respiratory Rate 18 20 20 Blood Pressure 121/63 112/53 L 135/55 L Pulse Oximetry 95 94 95 <PATY Carrillo - Last Filed: 02/04/21 09:20> Exam Narrative: GENERAL: This is a well-nourished, well-developed patient, in no apparent distress. HEAD: normocephalic, atraumatic. EYES: PERRL. Sclera clear/white. Vision is grossly intact. EARS: External ears normal, auditory canals clear and without drainage, TMs normal without perforation. Hearing grossly intact. N
[2021-02-04] MEDS: CITALOPRAM HYDROBROMIDE 10 MG TABLET PO (09:35)
[2021-02-04] MEDS: ACETAMINOPHEN 500 MG TABLET 1000 MG PO ×2 (09:36→19:57)
[2021-02-04] MEDS: SIMVASTATIN 10 MG TABLET PO (09:36)
[2021-02-04] MEDS: ENOXAPARIN 30 MG/0.3 ML SYRINGE SUB-Q (09:37)
--- NOTE | 2021-02-04 20:19 | PC.NURSE ---
Custom Wood Stair Builder gave PRN tylenol for febrile status of 100.4. Patient very flushed in face. Denies any difficulty breathing or SOB. Noted Sp02 between 85-88% on 3L per nasal cannula. Custom Wood Stair Builder increased O2 to 4L and only at 88-89%. Increased to 5L per nasal cannula. SpO2 at 91%. Patient continues to denies SOB. occupational medicine specialist notified of SP02 and increase in O2. Continue to monitor.
[2021-02-04] MEDS: ASPIRIN 81 MG CHEWABLE TABLET PO (22:08)
[2021-02-04] MEDS: TAMSULOSIN HCL 0.4 MG CAPSULE PO (22:08)
[2021-02-04] MEDS: amLODIPine BESYLATE 2.5 MG TABLET PO (22:08)
--- NOTE | 2021-02-04 22:20 | PC.NURSE ---
Chief Maintenance Supervisor reassessed [id number]. Patient states im comfortable . SOB noted and voiced during activity, none at rest. Continues O2 per nasal cannula at 5L Sp02 between 91-92%. experimental worker updated on patient status. Continue to monitor.
[2021-02-05] VITALS (9 sets, daily range): BP systolic 109–139; BP diastolic 48–80; PULSE 63–92; RESP 16–24; TEMP 36.4–37.5; O2SAT 89–96
[2021-02-05 00:08] LABS: Glucose Point of Care 104 mg/dl (65-105)
[2021-02-05] MEDS: ACETAMINOPHEN 500 MG TABLET 1000 MG PO (04:06)
[2021-02-05] MEDS: SODIUM CHLORIDE 0.9% IV 1,000 ML 100 ML IV CONT (04:07)
[2021-02-05 05:40] LABS: Hematocrit 30.2 % (37.0-46.0); Mean Corpuscular HGB Conc 33.1 g/dL (32.0-36.0); Mean Corpuscular Hemoglobin 35.1 pg (27.0-31.0); Mean Platelet Volume 10.8 fl (8.7-11.0); Platelet Count Result 178 K/mm3 (150-420); Red Blood Count 2.85 M/mm3 (4.70-6.10); Red Cell Distribution Width 13.2 % (11.6-14.4); White Blood Count 16.5 K/mm3 (4.8-10.8)
[2021-02-05 05:57] LABS: Alanine Aminotransferase 94 U/L (16-63); Albumin Level 2.4 g/dL (3.4-5.0); Alkaline Phosphatase 42 U/L (46-116); Anion Gap 9 mmol/L (8-16); Aspartate Amino Transferase 294 U/L (15-37); Bilirubin,Total 0.4 mg/dL (0.00-1.00); Blood Urea Nitrogen 27 mg/dL (7-18); Calcium 7.6 mg/dL (8.5-10.1); Carbon Dioxide 23 mmol/L (21-32); Chloride 104 mmol/L (98-108); Estimated CRCL calculation 26 ml/min; Estimated Glomerular Filt Rate 40; Glucose 95 mg/dL (70-99); Osmolality Calculated 287 mOsm/kg (285-295); Potassium 4.2 mmol/L (3.5-5.1); Sodium 136 mmol/L (136-145)
[2021-02-05 06:03] LABS: CRP 22.7 mg/dL (0.0-0.9)
[2021-02-05 07:43] LABS: INR 1.1; Prothrombin Time 11.7 Seconds (9.50-12.10)
[2021-02-05] MEDS: REMDESIVIR 200 MG/NS 250 ML 200 MG/250 ML BAG 250 MG IVPB (08:10)
[2021-02-05 08:35] LABS: Base Excess ABG -3.8 mmol/L (0-2); HCO3 ABG 20.1 mmol/L (23-29); Oxygen Content ABG 15.8 %vol (16.0-22.0); Oxygen Saturation ABG 95.1 % (95-97); Oxyhemoglobin 94.6 % (94-100); PCO2 ABG 32.6 mmHg (35-45); PO2 ABG 78.4 mmHg (75-85); Total Hemoglobin 11.8 g/dL (12.0-18.0); pH ABG 7.41 (7.35-7.45)
[2021-02-05 08:38] LABS: Device NASAL CANNULA; Modified Allen's Test Pass; Site Drawn LEFT RADIAL
[2021-02-05] MEDS: ENOXAPARIN 30 MG/0.3 ML SYRINGE SUB-Q (08:44)
[2021-02-05] MEDS: CITALOPRAM HYDROBROMIDE 10 MG TABLET PO (08:44)
[2021-02-05] MEDS: DEXAMETHASONE SOD PHOS INJ 4 MG/ML VIAL 6 MG IV PUSH (08:45)
[2021-02-05] MEDS: BUDESONIDE/FORMOTEROL (*SP) 160-4.5 MCG 6 GM INH 2 PUFF INHALATION ×2 (09:00→21:26)
[2021-02-05] MEDS: ALBUTEROL SULFATE (*SP) INHALER 2 PUFF INHALATION ×4 (09:00→21:26)
--- NOTE | 2021-02-05 12:56 | P.PN_ITS ---
Progress Note: A&P Assessment and Plan (1) Pneumonia due to COVID-19 virus: Code(s): U07.1 - COVID-19; J12.82 - Pneumonia due to coronavirus disease 2019 Status: Acute Assessment and Plan: * Patient tested positive for Covid on 02/03/2021 * Chest x-ray indicates pneumonia * WBC 14.6>13.5>16.5 * CRP 19.1>>10>22.7 * Continue azithromycin and Rocephin * Patient with no respiratory issues dexamethasone and remdesivir not started * Pneumonia more than likely bacterial * Started dexamethasone and remdesivir * Started nebulized (2) Acute renal failure: Qualifiers: Acute renal failure type: unspecified Qualified Code(s): N17.9 - Acute kidney failure, unspecified Code(s): N17.9 - Acute kidney failure, unspecified Status: Acute Assessment and Plan: * Creatinine2.31>1.99 >1.65 baseline appears to be at 1.50, trending down * Possibly secondary to infection * Avoid nephrotoxic agents * Renal dose medication (3) HTN (hypertension): Code(s): I10 - Essential (primary) hypertension Status: Acute Assessment and Plan: * Stable * Continue amlodipine * Vital signs as ordered * Will adjust medication as needed (4) HLD (hyperlipidemia): Code(s): E78.5 - Hyperlipidemia, unspecified Status: Acute Assessment and Plan: * Statins on hold due to elevated liver enzymes (5) BPH (benign prostatic hyperplasia): Code(s): N40.0 - Benign prostatic hyperplasia without lower urinary tract symptoms Status: Acute Assessment and Plan: * Continue Flomax (6) Elevated transaminase level: Code(s): R74.01 - Elevation of levels of liver transaminase levels Status: Acute Assessment and Plan: * AST 565>440>294 * [id number]>116>94 * Possibly secondary to infection * Trending down * We will continue to monitor * Statins on hold (7) Elevated troponin: Code(s): R77.8 - Other specified abnormalities of plasma proteins Status: Acute Assessment and Plan: * Troponin 73.1> 64.9> 52.3 * Not believed to be cardiac related * EKG sinus rhythm with a heart rate in the 70s * Will treat underlying cause (8) UTI (urinary tract infection): Code(s): N39.0 - Urinary tract infection, site not specified Status: Acute Assessment and Plan: * Patient treated for UTI on 02/01/2021 * Bactrim discontinued no growth in urine culture Subjective Date/time seen: 02/05/21 12:56 please see reports that patient's sats dropped to mid 80s on 4 L nasal cannula oxygen increased to 5 L currently 91%. Patient denies any shortness of breath. Spoke with patient about possible transfer if his condition continues to deteriorate also spoke with patient at that time concerning his CODE STATUS patient notes that he does not want to be intubated patient changed to DNI. Patient will remain here we will manage his care. He does not appear to be in any distress at this time. Patient's vital signs stable blood gas collected no severely significant findings. Patient did not have any complaints at this time Review of Systems Review of Systems: A 14 organ system Review of Systems was performed and pertinent positives included in the HPI, otherwise remaining ROS is negative. Exam Narrative: GENERAL: This is a well-nourished, well-developed patient, in no apparent distress. HEAD: normocephalic, atraumatic. EYES: PERRL. Sclera clear/white. Vision is grossly intact. EARS: External ears normal, auditory canals clear and without drainage, TMs normal
--- NOTE | 2021-02-05 12:56 | WPDPN ---
Progress Note: A&P Assessment and Plan (1) Pneumonia due to COVID-19 virus: Code(s): U07.1 - COVID-19; J12.82 - Pneumonia due to coronavirus disease 2019 Status: Acute Assessment and Plan: Patient tested positive for Covid on 02/03/2021 Chest x-ray indicates pneumonia WBC 14.6>13.5>16.5 CRP 19.1>>10>22.7 Continue azithromycin and Rocephin Patient with no respiratory issues dexamethasone and remdesivir not started Pneumonia more than likely bacterial Started dexamethasone and remdesivir Started nebulized (2) Acute renal failure: Qualifiers: Acute renal failure type: unspecified Qualified Code(s): N17.9 - Acute kidney failure, unspecified Code(s): N17.9 - Acute kidney failure, unspecified Status: Acute Assessment and Plan: Creatinine2.31>1.99 >1.65 baseline appears to be at 1.50, trending down Possibly secondary to infection Avoid nephrotoxic agents Renal dose medication (3) HTN (hypertension): Code(s): I10 - Essential (primary) hypertension Status: Acute Assessment and Plan: Stable Continue amlodipine Vital signs as ordered Will adjust medication as needed (4) HLD (hyperlipidemia): Code(s): E78.5 - Hyperlipidemia, unspecified Status: Acute Assessment and Plan: Statins on hold due to elevated liver enzymes (5) BPH (benign prostatic hyperplasia): Code(s): N40.0 - Benign prostatic hyperplasia without lower urinary tract symptoms Status: Acute Assessment and Plan: Continue Flomax (6) Elevated transaminase level: Code(s): R74.01 - Elevation of levels of liver transaminase levels Status: Acute Assessment and Plan: AST 565>440>294 HYK883>116>94 Possibly secondary to infection Trending down We will continue to monitor Statins on hold (7) Elevated troponin: Code(s): R77.8 - Other specified abnormalities of plasma proteins Status: Acute Assessment and Plan: Troponin 73.1> 64.9> 52.3 Not believed to be cardiac related EKG sinus rhythm with a heart rate in the 70s Will treat underlying cause (8) UTI (urinary tract infection): Code(s): N39.0 - Urinary tract infection, site not specified Status: Acute Assessment and Plan: Patient treated for UTI on 02/01/2021 Bactrim discontinued no growth in urine culture Subjective Date/time seen: 02/05/21 12:56 please see reports that patient's sats dropped to mid 80s on 4 L nasal cannula oxygen increased to 5 L currently 91%. Patient denies any shortness of breath. Spoke with patient about possible transfer if his condition continues to deteriorate also spoke with patient at that time concerning his CODE STATUS patient notes that he does not want to be intubated patient changed to DNI. Patient will remain here we will manage his care. He does not appear to be in any distress at this time. Patient's vital signs stable blood gas collected no severely significant findings. Patient did not have any complaints at this time Review of Systems Review of Systems: A 14 organ system Review of Systems was performed and pertinent positives included in the HPI, otherwise remaining ROS is negative. Exam Narrative: GENERAL: This is a well-nourished, well-developed patient, in no apparent distress. HEAD: normocephalic, atraumatic. EYES: PERRL. Sclera clear/white. Vision is grossly intact. EARS: External ears normal, auditory canals clear and without drainage, TMs normal without perforation. Hearing grossly intact. NOSE: External nose normal with no obvious nasal discharge, nares without redness, no rhinorrhea. THROAT: Mucous membranes moist, posterior pharynx clear. NECK: Neck supple, non-tender without lymphadenopathy, masses or thyromegaly. CARDIOVASCULAR: Regular rate and rhythm without murmurs, gallops, or rubs. RESPIRATORY: Diminished GASTROINTESTINAL: Abdomen soft, non-tender, nondistended. Bowel sound
[2021-02-05] MEDS: amLODIPine BESYLATE 2.5 MG TABLET PO (21:26)
[2021-02-05] MEDS: ASPIRIN 81 MG CHEWABLE TABLET PO (21:26)
[2021-02-05] MEDS: TAMSULOSIN HCL 0.4 MG CAPSULE PO (21:26)
[2021-02-06] VITALS (7 sets, daily range): BP systolic 113–132; BP diastolic 50–80; PULSE 72–92; RESP 20–22; TEMP 36.6–36.9; O2SAT 87–95
[2021-02-06] MEDS: SODIUM CHLORIDE 0.9% IV 1,000 ML 100 ML IV CONT (01:23)
[2021-02-06 05:18] LABS: Basophils Absolute Auto 0.04 K/mm3 (0.00-0.10); Basophils Percent Auto 0.2 % (0.0-1.0); Hematocrit 29.3 % (37.0-46.0); Hemoglobin 9.5 g/dL (12.4-15.3); Immature Granulocyte Absolute 0.43 K/mm3 (0.00-0.00); Immature Granulocyte Percent A 2.5 % (0.0-0.0); Lymphocytes Absolute Auto 0.48 K/mm3 (1.10-4.50); Lymphocytes Percent Auto 2.8 % (18.0-42.0); Mean Corpuscular HGB Conc 32.4 g/dL (32.0-36.0); Mean Corpuscular Hemoglobin 34.1 pg (27.0-31.0); Mean Platelet Volume 11.2 fl (8.7-11.0); Monocytes Absolute Auto 0.79 K/mm3 (0.10-0.90); Monocytes Percent Auto 4.6 % (2.0-11.0); Neutrophils Absolute Auto 15.3 K/mm3 (1.7-7.2); Neutrophils Percent Auto 89.9 % (50.0-70.0); Platelet Count Result 211 K/mm3 (150-420); Red Blood Count 2.79 M/mm3 (4.70-6.10); Red Cell Distribution Width 13.2 % (11.6-14.4); White Blood Count 17.1 K/mm3 (4.8-10.8)
[2021-02-06 05:28] LABS: INR 1.1; Prothrombin Time 11.9 Seconds (9.50-12.10)
[2021-02-06 05:45] LABS: Alanine Aminotransferase 87 U/L (16-63); Albumin Level 2.3 g/dL (3.4-5.0); Alkaline Phosphatase 48 U/L (46-116); Anion Gap 10 mmol/L (8-16); Aspartate Amino Transferase 211 U/L (15-37); Bilirubin,Total 0.2 mg/dL (0.00-1.00); Blood Urea Nitrogen 28 mg/dL (7-18); Calcium 7.9 mg/dL (8.5-10.1); Carbon Dioxide 23 mmol/L (21-32); Chloride 106 mmol/L (98-108); Estimated CRCL calculation 31 ml/min; Estimated Glomerular Filt Rate 49; Glucose 127 mg/dL (70-99); Osmolality Calculated 295 mOsm/kg (285-295); Potassium 4.6 mmol/L (3.5-5.1); Sodium 139 mmol/L (136-145); Total Protein 6.3 g/dL (6.4-8.2)
[2021-02-06] MEDS: REMDESIVIR 100 MG/NS 250 ML 100 MG/250 ML BAG 250 MG IVPB (09:25)
[2021-02-06] MEDS: DEXAMETHASONE SOD PHOS INJ 4 MG/ML VIAL 6 MG IV PUSH (09:26)
[2021-02-06] MEDS: CITALOPRAM HYDROBROMIDE 10 MG TABLET PO (09:26)
[2021-02-06] MEDS: ALBUTEROL SULFATE (*SP) INHALER 2 PUFF INHALATION ×4 (09:38→23:07)
[2021-02-06] MEDS: BUDESONIDE/FORMOTEROL (*SP) 160-4.5 MCG 6 GM INH 2 PUFF INHALATION ×2 (09:38→23:11)
[2021-02-06] MEDS: ENOXAPARIN 30 MG/0.3 ML SYRINGE SUB-Q (09:40)
[2021-02-06 10:04] LABS: NT Pro B Type Natriuretic Pept 998 pg/mL (0-450)
--- NOTE | 2021-02-06 12:00 | PC.NURSE ---
Update given to pts daughter, Danay Underwood via telephone. All questions answered at this time.
--- NOTE | 2021-02-06 12:50 | P.PN_ITS ---
Progress Note: A&P Assessment and Plan (1) Pneumonia due to COVID-19 virus: Code(s): U07.1 - COVID-19; J12.82 - Pneumonia due to coronavirus disease 2019 Status: Acute Assessment and Plan: * Patient tested positive for Covid on 02/03/2021 * Chest x-ray indicates pneumonia * WBC 14.6>13.5>16.5>17.1. We will closely monitor WBCs will possibly need to adjust antibiotic treatment * CRP 19.1>>10>22.7 * Continue azithromycin and Rocephin * Continue dexamethasone and remdesivir * Pneumonia more than likely bacterial * Continue nebulized (2) Acute renal failure: Qualifiers: Acute renal failure type: unspecified Qualified Code(s): N17.9 - Acute kidney failure, unspecified Code(s): N17.9 - Acute kidney failure, unspecified Status: Acute Assessment and Plan: * Creatinine2.31>1.99 >1.65 >1.38 baseline appears to be at 1.50, trending down * Possibly secondary to infection * Avoid nephrotoxic agents * Renal dose medication (3) HTN (hypertension): Code(s): I10 - Essential (primary) hypertension Status: Acute Assessment and Plan: * Stable * Continue amlodipine * Vital signs as ordered * Will adjust medication as needed (4) HLD (hyperlipidemia): Code(s): E78.5 - Hyperlipidemia, unspecified Status: Acute Assessment and Plan: * Statins on hold due to elevated liver enzymes (5) BPH (benign prostatic hyperplasia): Code(s): N40.0 - Benign prostatic hyperplasia without lower urinary tract symptoms Status: Acute Assessment and Plan: * Continue Flomax (6) Elevated transaminase level: Code(s): R74.01 - Elevation of levels of liver transaminase levels Status: Acute Assessment and Plan: * AST 565>440>294>2111 * IKI299>116>94>87 * Possibly secondary to infection * Trending down * We will continue to monitor * Statins on hold (7) Elevated troponin: Code(s): R77.8 - Other specified abnormalities of plasma proteins Status: Acute Assessment and Plan: * Troponin 73.1> 64.9> 52.3 * Not believed to be cardiac related * EKG sinus rhythm with a heart rate in the 70s * Will treat underlying cause (8) UTI (urinary tract infection): Code(s): N39.0 - Urinary tract infection, site not specified Status: Acute Assessment and Plan: * Patient treated for UTI on 02/01/2021 * Bactrim discontinued no growth in urine culture Subjective Date/time seen: 02/06/21 12:50 patient did note that he does experience shortness of breath with activity. He will more than likely need a home eval on discharge. He also notes that he did not sleep well overnight. The patient denies CP, palpitation, extremity numbness, lightheadedness, dizziness, constipation, diarrhea, chills, or fever. Review of Systems Review of Systems: A 14 organ system Review of Systems was performed and pertinent positives included in the HPI, otherwise remaining ROS is negative. Exam Narrative: GENERAL: This is a well-nourished, well-developed patient, in no apparent distress. HEAD: normocephalic, atraumatic. EYES: PERRL. Sclera clear/white. Vision is grossly intact. EARS: External ears normal, auditory canals clear and without drainage, TMs normal without perforation. Hearing grossly intact. NOSE: External nose normal with no obvious nasal discharge, nares without redness, no rhinorrhea. THROAT: Mucous membranes moist, posterior pharynx clear. NECK: Neck supple, non-tender without lymphadenopathy, masses or thyromegaly. CA
--- NOTE | 2021-02-06 12:50 | WPDPN ---
Progress Note: A&P Assessment and Plan (1) Pneumonia due to COVID-19 virus: Code(s): U07.1 - COVID-19; J12.82 - Pneumonia due to coronavirus disease 2019 Status: Acute Assessment and Plan: Patient tested positive for Covid on 02/03/2021 Chest x-ray indicates pneumonia WBC 14.6>13.5>16.5>17.1. We will closely monitor WBCs will possibly need to adjust antibiotic treatment CRP 19.1>>10>22.7 Continue azithromycin and Rocephin Continue dexamethasone and remdesivir Pneumonia more than likely bacterial Continue nebulized (2) Acute renal failure: Qualifiers: Acute renal failure type: unspecified Qualified Code(s): N17.9 - Acute kidney failure, unspecified Code(s): N17.9 - Acute kidney failure, unspecified Status: Acute Assessment and Plan: Creatinine2.31>1.99 >1.65 >1.38 baseline appears to be at 1.50, trending down Possibly secondary to infection Avoid nephrotoxic agents Renal dose medication (3) HTN (hypertension): Code(s): I10 - Essential (primary) hypertension Status: Acute Assessment and Plan: Stable Continue amlodipine Vital signs as ordered Will adjust medication as needed (4) HLD (hyperlipidemia): Code(s): E78.5 - Hyperlipidemia, unspecified Status: Acute Assessment and Plan: Statins on hold due to elevated liver enzymes (5) BPH (benign prostatic hyperplasia): Code(s): N40.0 - Benign prostatic hyperplasia without lower urinary tract symptoms Status: Acute Assessment and Plan: Continue Flomax (6) Elevated transaminase level: Code(s): R74.01 - Elevation of levels of liver transaminase levels Status: Acute Assessment and Plan: AST 565>440>294>2111 [id number]>116>94>87 Possibly secondary to infection Trending down We will continue to monitor Statins on hold (7) Elevated troponin: Code(s): R77.8 - Other specified abnormalities of plasma proteins Status: Acute Assessment and Plan: Troponin 73.1> 64.9> 52.3 Not believed to be cardiac related EKG sinus rhythm with a heart rate in the 70s Will treat underlying cause (8) UTI (urinary tract infection): Code(s): N39.0 - Urinary tract infection, site not specified Status: Acute Assessment and Plan: Patient treated for UTI on 02/01/2021 Bactrim discontinued no growth in urine culture Subjective Date/time seen: 02/06/21 12:50 patient did note that he does experience shortness of breath with activity. He will more than likely need a home eval on discharge. He also notes that he did not sleep well overnight. The patient denies CP, palpitation, extremity numbness, lightheadedness, dizziness, constipation, diarrhea, chills, or fever. Review of Systems Review of Systems: A 14 organ system Review of Systems was performed and pertinent positives included in the HPI, otherwise remaining ROS is negative. Exam Narrative: GENERAL: This is a well-nourished, well-developed patient, in no apparent distress. HEAD: normocephalic, atraumatic. EYES: PERRL. Sclera clear/white. Vision is grossly intact. EARS: External ears normal, auditory canals clear and without drainage, TMs normal without perforation. Hearing grossly intact. NOSE: External nose normal with no obvious nasal discharge, nares without redness, no rhinorrhea. THROAT: Mucous membranes moist, posterior pharynx clear. NECK: Neck supple, non-tender without lymphadenopathy, masses or thyromegaly. CARDIOVASCULAR: Regular rate and rhythm without murmurs, gallops, or rubs. RESPIRATORY: Diminished GASTROINTESTINAL: Abdomen soft, non-tender, nondistended. Bowel sounds are active. No hepato-splenomegaly, or palpable masses. No guarding. SKIN: warm, intact with no suspicious lesions or rash, good texture and turgor. NEURO: awake, alert, and oriented to person, place and time. EXTREMITIES: Normal range of motion. No edema. No calf tenderness. Negat
[2021-02-06] MEDS: ASPIRIN 81 MG CHEWABLE TABLET PO (19:45)
[2021-02-06] MEDS: amLODIPine BESYLATE 2.5 MG TABLET PO (19:45)
[2021-02-06] MEDS: traZODone HCL 25 MG TABLET PO (19:45)
[2021-02-06] MEDS: TAMSULOSIN HCL 0.4 MG CAPSULE PO (19:45)
[2021-02-06] MEDS: LORazepam INJ (*CRX) 2 MG/ML VIAL 0.5 MG IV PUSH (21:38)
[2021-02-07] VITALS (11 sets, daily range): BP systolic 114–133; BP diastolic 54–76; PULSE 58–93; RESP 18–28; TEMP 36.3–37.1; O2SAT 87–98
--- NOTE | 2021-02-07 02:52 | PC.NURSE ---
Dr Sullivan notified of patient being change of status with new orders received to stop IV fluids and to start patient on HI-Flow O2. RT paged.
--- NOTE | 2021-02-07 03:01 | PC.NURSE ---
Clipper Machine Operator entered room and assisted patient with incontinence care. Clipper Machine Operator assisted patient back into bed and noted Sp02 at 80% on 6L O2 per nasal cannula. Clipper Machine Operator education and performed breathing techniques with patient to increase oxygenation. Unsuccessful. Patient continues to have shallowing breathing, RR at 20. LS assessed and crackles present throughout lung field. Abdominal breathing noted. Patient in no distress and able to speak with radio news writer. Patient was placed on non-rebreather mask and increased to 10L. Sp02 at 88% and then started decreasing. Patient at 85%. Increased Sp02 to 15L with non-rebreather and noted patient at 88-90%. cherry cutter aware of condition and informed MD. Orders in place.
[2021-02-07] MEDS: FUROSEMIDE INJ 40 MG/4 ML VIAL (03:33)
--- NOTE | 2021-02-07 03:37 | PC.NURSE ---
Dr Sullivan notified of patient being on hi-flow O2 with SpO2 staying 84-85%. New orders received to increase O2 to 80%.
--- NOTE | 2021-02-07 04:07 | PC.NURSE ---
Soliz catheter was placed, 16FR 10cc. 350cc urine yellow and clear. 40mg IV lasix given. Vitals BP121/60 HR 66 T-97.8 RR-20.
[2021-02-07 05:24] LABS: Basophils Absolute Auto 0.04 K/mm3 (0.00-0.10); Basophils Percent Auto 0.2 % (0.0-1.0); Hemoglobin 9.5 g/dL (12.4-15.3); Immature Granulocyte Absolute 0.42 K/mm3 (0.00-0.00); Immature Granulocyte Percent A 2.3 % (0.0-0.0); Lymphocytes Absolute Auto 0.63 K/mm3 (1.10-4.50); Lymphocytes Percent Auto 3.4 % (18.0-42.0); Mean Corpuscular HGB Conc 32.8 g/dL (32.0-36.0); Mean Corpuscular Hemoglobin 34.4 pg (27.0-31.0); Mean Corpuscular Volume 105.1 fL (78.0-102.0); Mean Platelet Volume 10.9 fl (8.7-11.0); Monocytes Absolute Auto 0.71 K/mm3 (0.10-0.90); Monocytes Percent Auto 3.8 % (2.0-11.0); Neutrophils Absolute Auto 16.7 K/mm3 (1.7-7.2); Neutrophils Percent Auto 90.3 % (50.0-70.0); Platelet Count Result 262 K/mm3 (150-420); Red Blood Count 2.76 M/mm3 (4.70-6.10); Red Cell Distribution Width 13.5 % (11.6-14.4); White Blood Count 18.5 K/mm3 (4.8-10.8)
[2021-02-07 05:39] LABS: INR 1.1; Prothrombin Time 12.1 Seconds (9.50-12.10)
[2021-02-07 05:42] LABS: Base Excess ABG -0.2 mmol/L (0-2); HCO3 ABG 23.7 mmol/L (23-29); Oxygen Content ABG 13.4 %vol (16.0-22.0); Oxygen Saturation ABG 89.5 % (95-97); Oxyhemoglobin 89.2 % (94-100); PCO2 ABG 35.8 mmHg (35-45); PO2 ABG 56.8 mmHg (75-85); Total Hemoglobin 10.7 g/dL (12.0-18.0); pH ABG 7.44 (7.35-7.45)
[2021-02-07 05:43] LABS: Device HIGH FLOW NASAL CANN; Modified Allen's Test Pass; Site Drawn LEFT RADIAL
[2021-02-07 05:45] LABS: Alanine Aminotransferase 88 U/L (16-63); Albumin Level 2.4 g/dL (3.4-5.0); Alkaline Phosphatase 52 U/L (46-116); Anion Gap 12 mmol/L (8-16); Aspartate Amino Transferase 141 U/L (15-37); Bilirubin,Total 0.2 mg/dL (0.00-1.00); Blood Urea Nitrogen 32 mg/dL (7-18); Calcium 8.3 mg/dL (8.5-10.1); Carbon Dioxide 23 mmol/L (21-32); Chloride 106 mmol/L (98-108); Estimated CRCL calculation 30 ml/min; Estimated Glomerular Filt Rate 47; Fractional Inspired Oxygen 60 %; Glucose 141 mg/dL (70-99); NT Pro B Type Natriuretic Pept 1488 pg/mL (0-450); Osmolality Calculated 300 mOsm/kg (285-295); Potassium 4.4 mmol/L (3.5-5.1); Sodium 141 mmol/L (136-145); Total Protein 6.4 g/dL (6.4-8.2)
[2021-02-07] MEDS: ALBUTEROL SULFATE (*SP) INHALER 2 PUFF INHALATION ×4 (08:22→20:48)
[2021-02-07] MEDS: CITALOPRAM HYDROBROMIDE 10 MG TABLET PO (08:22)
[2021-02-07] MEDS: BUDESONIDE/FORMOTEROL (*SP) 160-4.5 MCG 6 GM INH 2 PUFF INHALATION ×2 (08:22→20:48)
[2021-02-07] MEDS: DEXAMETHASONE SOD PHOS INJ 4 MG/ML VIAL 6 MG IV PUSH (08:22)
[2021-02-07] MEDS: ENOXAPARIN 30 MG/0.3 ML SYRINGE SUB-Q (08:22)
[2021-02-07] MEDS: REMDESIVIR 100 MG/NS 250 ML 100 MG/250 ML BAG 250 MG IVPB (09:43)
[2021-02-07] MEDS: FUROSEMIDE INJ 40 MG/4 ML VIAL 20 MG IV PUSH ×2 (09:44→16:36)
[2021-02-07 10:46] LABS: Base Excess ABG -0.6 mmol/L (0-2); HCO3 ABG 22.5 mmol/L (23-29); Oxygen Content ABG 14.4 %vol (16.0-22.0); Oxygen Saturation ABG 93.5 % (95-97); Oxyhemoglobin 93.1 % (94-100); PCO2 ABG 31.9 mmHg (35-45); PO2 ABG 66.2 mmHg (75-85); pH ABG 7.47 (7.35-7.45)
[2021-02-07 10:48] LABS: Device HIGH FLOW NASAL CANN; Modified Allen's Test Pass; Site Drawn RIGHT RADIAL
--- NOTE | 2021-02-07 11:19 | P.PNIM_ITS ---
Progress Note: A&P Assessment and Plan (1) Pneumonia due to COVID-19 virus: Code(s): U07.1 - COVID-19; J12.82 - Pneumonia due to coronavirus disease 2019 <KATHLEEN Mathis - Last Filed: 02/07/21 16:07> Status: Acute <KATHLEEN Mathis - Last Filed: 02/07/21 16:07> Assessment and Plan: * Patient tested positive for Covid on 02/03/2021 * Chest x-ray indicates pneumonia * WBC 14.6>13.5>16.5>17.1. We will closely monitor WBCs will possibly need to adjust antibiotic treatment * CRP 19.1>>10>22.7 * Continue azithromycin and Rocephin * Continue dexamethasone and remdesivir * Pneumonia more than likely bacterial * Continue nebulized 02/07/2021 Continue with Remdesivir, Decadron, Rocephin, Azithromycin, add Baricitinib, currently HFNC 60L/min and 80%, repeat ABG shows mild improvement, will recheck ABG at 1900 hours, Discussed Pt with Dr. Thompson, Pulmonoalogist with much thanks for recommendations, Unable to recommend transfer or not at this time as he is unable to see in the chart d/t down time and/or not able to see the Pt in person. Will adjust HFNC up to 60L/min and 100% as needed currentl y at 60L/min and 80%, and if needed start BiPAP, Baricitinib has been started. Pt has agreed to prone himself as much as possible. CTA shows no PE, continue Lovenox 30mg daily, will repeat ABG at 1900 hours <KATHLEEN Mathis - Last Filed: 02/07/21 16:07> (2) Acute renal failure: Qualifiers: Acute renal failure type: unspecified Qualified Code(s): N17.9 - Acute kidney failure, unspecified <KATHLEEN Mathis - Last Filed: 02/07/21 16:07> Code(s): N17.9 - Acute kidney failure, unspecified <KATHLEEN Mathis - Last Filed: 02/07/21 16:07> Status: Acute <Joe Snow HEALTHCARE FINANCIAL ANALYST-C - Last Filed: 02/07/21 16:07> Assessment and Plan: * Creatinine2.31>1.99 >1.65 >1.38 baseline appears to be at 1.50, trending down * Possibly secondary to infection * Avoid nephrotoxic agents * Renal dose medication 02/07/2021 Cr 1.44 and appears to be at baseline <Joe Snow HEALTHCARE FINANCIAL ANALYST-C - Last Filed: 02/07/21 16:07> (3) HTN (hypertension): Code(s): I10 - Essential (primary) hypertension <Joe Snow HEALTHCARE FINANCIAL ANALYST-C - Last Filed: 02/07/21 16:07> Status: Acute <Joe Snow HEALTHCARE FINANCIAL ANALYST-C - Last Filed: 02/07/21 16:07> Assessment and Plan: * Stable * Continue amlodipine * Vital signs as ordered * Will adjust medication as needed 02/07/2021 VSS and will continue to monitor and will make changes as needed. <Joe Snow HEALTHCARE FINANCIAL ANALYST-C - Last Filed: 02/07/21 16:07> (4) HLD (hyperlipidemia): Code(s): E78.5 - Hyperlipidemia, unspecified <Joe Snow HEALTHCARE FINANCIAL ANALYST-C - Last Filed: 02/07/21 16:07> Status: Acute <Joe Snow HEALTHCARE FINANCIAL ANALYST-C - Last Filed: 02/07/21 16:07> Assessment and Plan: * Statins on hold due to elevated liver enzymes <Joe Snow HEALTHCARE FINANCIAL ANALYST-C - Last Filed: 02/07/21 16:07> (5) BPH (benign prostatic hyperplasia): Code(s): N40.0 - Benign prostatic hyperplasia without lower urinary tract symptoms <Joe Snow HEALTHCARE FINANCIAL ANALYST-C - Last Filed: 02/07/21 16:07> Status: Acute <Joe Snow HEALTHCARE FINANCIAL ANALYST-C - Last Filed: 02/07/21 16:07> Assessment and Plan: * Continue Flomax <Joe Snow HEALTHCARE FINANCIAL ANALYST-C - Last Filed: 02/07/21 16:07> (6) Elevated transaminase level: Code(s): R74.01 - Elevation of levels of liver transaminase levels <KATHLEEN Mathis - Last Filed: 02/07/21 16:07> Status: Acute <KATHLEEN Mathis - Last Filed: 02/07/21 16:07> Assessment
--- NOTE | 2021-02-07 11:19 | PM.IMPN ---
Progress Note: A&P Assessment and Plan (1) Pneumonia due to COVID-19 virus: Code(s): U07.1 - COVID-19; J12.82 - Pneumonia due to coronavirus disease 2019 <KATHLEEN Mathis - Last Filed: 02/07/21 16:07> Status: Acute <KATHLEEN Mathis - Last Filed: 02/07/21 16:07> Assessment and Plan: Patient tested positive for Covid on 02/03/2021 Chest x-ray indicates pneumonia WBC 14.6>13.5>16.5>17.1. We will closely monitor WBCs will possibly need to adjust antibiotic treatment CRP 19.1>>10>22.7 Continue azithromycin and Rocephin Continue dexamethasone and remdesivir Pneumonia more than likely bacterial Continue nebulized 02/07/2021 Continue with Remdesivir, Decadron, Rocephin, Azithromycin, add Baricitinib, currently HFNC 60L/min and 80%, repeat ABG shows mild improvement, will recheck ABG at 1900 hours, Discussed Pt with Dr. Thompson, Pulmonoalogist with much thanks for recommendations, Unable to recommend transfer or not at this time as he is unable to see in the chart d/t down time and/or not able to see the Pt in person. Will adjust HFNC up to 60L/min and 100% as needed currently at 60L/min and 80%, and if needed start BiPAP, Baricitinib has been started. Pt has agreed to prone himself as much as possible. CTA shows no PE, continue Lovenox 30mg daily, will repeat ABG at 1900 hours <KATHLEEN Mathis - Last Filed: 02/07/21 16:07> (2) Acute renal failure: Qualifiers: Acute renal failure type: unspecified Qualified Code(s): N17.9 - Acute kidney failure, unspecified <KATHLEEN Mathis - Last Filed: 02/07/21 16:07> Code(s): N17.9 - Acute kidney failure, unspecified <KATHLEEN Mathis - Last Filed: 02/07/21 16:07> Status: Acute <KATHLEEN Mathis Last Filed: 02/07/21 16:07> Assessment and Plan: Creatinine2.31>1.99 >1.65 >1.38 baseline appears to be at 1.50, trending down Possibly secondary to infection Avoid nephrotoxic agents Renal dose medication 02/07/2021 Cr 1.44 and appears to be at baseline <Joe Snow, CORE LAYING MACHINE OPERATOR-C - Last Filed: 02/07/21 16:07> (3) HTN (hypertension): Code(s): I10 - Essential (primary) hypertension <Joe Snow, CORE LAYING MACHINE OPERATOR-C - Last Filed: 02/07/21 16:07> Status: Acute <Joe Snow CORE LAYING MACHINE OPERATOR-C - Last Filed: 02/07/21 16:07> Assessment and Plan: Stable Continue amlodipine Vital signs as ordered Will adjust medication as needed 02/07/2021 VSS and will continue to monitor and will make changes as needed. <Joe Snow CORE LAYING MACHINE OPERATOR-C - Last Filed: 02/07/21 16:07> (4) HLD (hyperlipidemia): Code(s): E78.5 - Hyperlipidemia, unspecified <Joe Snow CORE LAYING MACHINE OPERATOR-C - Last Filed: 02/07/21 16:07> Status: Acute <Joe Snow CORE LAYING MACHINE OPERATOR-C - Last Filed: 02/07/21 16:07> Assessment and Plan: Statins on hold due to elevated liver enzymes <Joe Snow CORE LAYING MACHINE OPERATOR-C - Last Filed: 02/07/21 16:07> (5) BPH (benign prostatic hyperplasia): Code(s): N40.0 - Benign prostatic hyperplasia without lower urinary tract symptoms <Joe Snow, CORE LAYING MACHINE OPERATOR-C - Last Filed: 02/07/21 16:07> Status: Acute <Joe Snow CORE LAYING MACHINE OPERATOR-C - Last Filed: 02/07/21 16:07> Assessment and Plan: Continue Flomax <Joe Snow, CORE LAYING MACHINE OPERATOR-C - Last Filed: 02/07/21 16:07> (6) Elevated transaminase level: Code(s): R74.01 - Elevation of levels of liver transaminase levels <Joe Snow, CORE LAYING MACHINE OPERATOR-C - Last Filed: 02/07/21 16:07> Status: Acute <KATHLEEN Mathis - Last Filed: 02/07/21 16:07> Assessment and Plan: AST 565>440>294>2111 [id number]>116>94>87 Possibly secondary to infection Trending down We will continue to monitor Statins on hold 02/07/2021 AST 141, ALT 88, improving, continue to monitor <KATHLEEN Mathis - Last Filed: 02/07/21 16:07> (7) Elevated troponin: Code(s): R77.8 - Other speci
--- NOTE | 2021-02-07 12:25 | PC.NURSE ---
Addendum entered by Nadeen Gilliam RN 02/07/21 12:25: Original update give at 1010 on 02/07/21 Original Note: Updated pt's daughter Kaylin via telephone. All questions answered at this time.
--- NOTE | 2021-02-07 13:10 | ECHO_ITS ---
Patient Info Name: Raheel Leblanc Age: 86 years : 1935 Gender: Male Ht: 65 in Wt: 149 lbs BSA: 1.77 m2 HR: 70 bpm BP: 120 / 62 mmHg Exam Date: 02/08/2021 12:38 PM Exam Location: [facility] [place] Patient Status: Inpatient Admit Date: 02/03/2021 Staff Ordering Physician: Sriram Sullivan MD Jalousies Installer: Horace Resendez RDCS, RT Attending Provider: Lorne Fuentes MD Referring Physician: Nate DEAN; Exam Type: CA echo doppler color flow Study Info Indications R06.00 - Dyspnea, unspecified Complete two-dimensional, color flow and Doppler transthoracic echocardiogram is performed. Summary 1. Complete two-dimensional, color flow and Doppler transthoracic echocardiogram is performed. 2. Left ventricular chamber dimension is normal. 3. Left ventricular systolic function is normal, estimated at 65-70%. 4. There is mildly increased left ventricular wall thickness. 5. The left ventricular diastolic function is grade I diastolic dysfunction. 6. E/e' 7 is not elevated. 7. There is mild aortic valve regurgitation. 8. No pulmonary hypertension, estimated pulmonary arterial systolic pressure is 29 mmHg. Left Ventricle E/e' 7 is not elevated. Left ventricular chamber dimension is normal. Left ventricular systolic function is normal, estimated at 65-70%. There is mildly increased left ventricular wall thickness. The left ventricular diastolic function is grade I diastolic dysfunction. Right Ventricle Right ventricular systolic function is normal and with normal TAPSE 2.2 cm. Right ventricular chamber dimension is normal. Left Atria Left atrial chamber dimension is normal. Right Atria Right atrial chamber dimension is normal. Aortic Valve The aortic valve is trileaflet. There is no aortic valve stenosis. There is mild aortic valve regurgitation. Pulmonic Valve There is no pulmonic regurgitation. Mitral Valve There is no mitral valve stenosis. There is no mitral valve regurgitation. Tricuspid Valve There is no tricuspid valve regurgitation. No pulmonary hypertension, estimated pulmonary arterial systolic pressure is 29 mmHg. Pericardium/Pleural There is no pericardial effusion. Inferior Vena Cava Normal inferior vena cava with >50% collapse upon inspiration consistent with normal right atrial pressure, 5 mmHg. Aorta The aortic root size at the sinus of Valsalva is normal. Left Ventricular Outflow Tract Name Value Normal LVOT 2D LVOT Diameter 2.0 cm LVOT Doppler LVOT Peak Velocity 115 cm/s LVOT Peak Gradient 5 mmHg LVOT Mean Gradient 3 mmHg LVOT VTI 22 cm LVOT VTI/AV VTI Ratio 0.7 LVOT Stroke Volume 70 ml Mitral Valve Name Value Normal MV Doppler M
[2021-02-07] MEDS: BARICITINIB 2 MG TABLET PO (17:14)
--- NOTE | 2021-02-07 18:35 | PC.NURSE ---
1630 pt spo2 91-94% with high flow. patient turned to prone. spo02 up 96-98%. tolerating well. 1715 repositioned and dinner served. spo2 96%. 1745 sitting straight up in bed and dinner served. picks at supper. spo2 90-92%. encouraged to take deep breathes and cough. inhaler used. repositioned. 1825 spo2 88% with high flow 60/80% positioned and prone and spo2 immediately up to 98%. charge nurse aware.
--- NOTE | 2021-02-07 18:49 | PC.NURSE ---
daughter chikis called and update given
--- NOTE | 2021-02-07 19:00 | PC.NURSE ---
Completed bedside change of shift report. Patient has moved from prone position to supine for a short amount of time. Daytime nurse stated his O2 sats improve in prone position. Patient stated he would change position in a few minutes. Patient asked for a drink, made sure drink, call light is within reach. Patient was sent romero, which could not be in his room due to his respiratory status. Took picture of his romero and the card using his i-Pad, and showed him how to find the picture to see it. Patient was pleased.
[2021-02-07 19:08] LABS: Base Excess ABG 5.4 mmol/L (0-2); HCO3 ABG 28.9 mmol/L (23-29); Oxygen Content ABG 15.1 %vol (16.0-22.0); Oxygen Saturation ABG 96.4 % (95-97); PCO2 ABG 38.5 mmHg (35-45); PO2 ABG 87.1 mmHg (75-85); Total Hemoglobin 11.1 g/dL (12.0-18.0); pH ABG 7.49 (7.35-7.45)
[2021-02-07 19:13] LABS: Device HIGH FLOW NASAL CANN; Modified Allen's Test Pass; Site Drawn LEFT RADIAL
--- NOTE | 2021-02-07 20:45 | PC.NURSE ---
Patient moved to supine position in order to take his medication. Requested that he stay in supine in order to sleep. Patient was told he could try, but he would have to change his position if his O2 sats dropped too low.
[2021-02-07] MEDS: traZODone HCL 25 MG TABLET PO (20:49)
[2021-02-07] MEDS: TAMSULOSIN HCL 0.4 MG CAPSULE PO (20:49)
[2021-02-07] MEDS: amLODIPine BESYLATE 2.5 MG TABLET PO (20:49)
[2021-02-07] MEDS: ASPIRIN 81 MG CHEWABLE TABLET PO (20:50)
--- NOTE | 2021-02-07 22:04 | PC.NURSE ---
MD updated on patient's SPO2 rates being 88% to 93% when sleeping. Nurse asked if MD wanted the HiFlow settings adjusted, MD stated to just watch him for now and if his SPO2 drops into 80s then he will reevaluate how to proceed.
--- NOTE | 2021-02-07 22:10 | PC.NURSE ---
Patient's O2 sats moved from 98% when in prone position, to 88-92% when supine. Notified charge nurse, who called and asked for direction, as patient did not want to sleep in prone position. Dr. Dennison directed that his O2 sats be monitored, and if he is not able to lay prone, and his O2 sats drop much below 90, may need to increase high meliza nasal canula from 60L at 80% to 60L at 100%. Respiratory advised. Patient called as IV antibiotics have completed. Asked to be turned to prone position; O2 sats increased to 99%.
--- NOTE | 2021-02-07 23:15 | PC.NURSE ---
Completed patient rounding. Patient wanted more ice water. Patient also turned to lay supine. Patient's O2 sats dropped from 100% to 94%. Patient did not need anything else.
[2021-02-08] VITALS (11 sets, daily range): BP systolic 100–128; BP diastolic 45–63; PULSE 55–75; RESP 16–22; TEMP 36.6–37.6; O2SAT 90–99
[2021-02-08 05:29] LABS: Hematocrit 29.4 % (37.0-46.0); Hemoglobin 9.7 g/dL (12.4-15.3); Mean Corpuscular Hemoglobin 34.2 pg (27.0-31.0); Mean Corpuscular Volume 103.5 fL (78.0-102.0); Mean Platelet Volume 10.2 fl (8.7-11.0); Platelet Count Result 272 K/mm3 (150-420); Red Blood Count 2.84 M/mm3 (4.70-6.10); Red Cell Distribution Width 13.2 % (11.6-14.4); White Blood Count 15.9 K/mm3 (4.8-10.8)
[2021-02-08 05:43] LABS: INR 1.2; Prothrombin Time 12.5 Seconds (9.50-12.10)
[2021-02-08 05:48] LABS: Alanine Aminotransferase 86 U/L (16-63); Albumin Level 2.4 g/dL (3.4-5.0); Alkaline Phosphatase 55 U/L (46-116); Anion Gap 9 mmol/L (8-16); Aspartate Amino Transferase 102 U/L (15-37); Bilirubin,Total 0.4 mg/dL (0.00-1.00); Blood Urea Nitrogen 40 mg/dL (7-18); Calcium 8.3 mg/dL (8.5-10.1); Carbon Dioxide 28 mmol/L (21-32); Chloride 103 mmol/L (98-108); Estimated CRCL calculation 27 ml/min; Estimated Glomerular Filt Rate 42; Glucose 147 mg/dL (70-99); Osmolality Calculated 302 mOsm/kg (285-295); Sodium 140 mmol/L (136-145); Total Protein 6.4 g/dL (6.4-8.2)
--- NOTE | 2021-02-08 06:56 | PC.NURSE ---
Patient had some difficulty sleeping last night, but his O2 sats were generally above 90%. When he was lying prone or on his side, his O2 sats were typically 95% and above. When he was lying supine, his O2 sats were typically 90% to 95%. He briefly satted below 90 on three separate occasions, but sats improved with position changes. Patient used the high flow nasal canula at 60 L/min with 80% oxygen.
[2021-02-08] MEDS: CITALOPRAM HYDROBROMIDE 10 MG TABLET PO (08:43)
[2021-02-08] MEDS: FUROSEMIDE INJ 40 MG/4 ML VIAL 20 MG IV PUSH ×2 (08:43→16:26)
[2021-02-08] MEDS: DEXAMETHASONE SOD PHOS INJ 4 MG/ML VIAL 6 MG IV PUSH (08:44)
[2021-02-08] MEDS: ENOXAPARIN 30 MG/0.3 ML SYRINGE SUB-Q (08:45)
[2021-02-08] MEDS: BUDESONIDE/FORMOTEROL (*SP) 160-4.5 MCG 6 GM INH 2 PUFF INHALATION ×2 (08:45→21:01)
[2021-02-08] MEDS: ALBUTEROL SULFATE (*SP) INHALER 2 PUFF INHALATION ×4 (08:46→21:02)
[2021-02-08] MEDS: REMDESIVIR 100 MG/NS 250 ML 100 MG/250 ML BAG 250 MG IVPB (09:35)
--- NOTE | 2021-02-08 12:00 | PM.IMPN ---
Progress Note: A&P Assessment and Plan (1) Pneumonia due to COVID-19 virus: Code(s): U07.1 - COVID-19; J12.82 - Pneumonia due to coronavirus disease 2019 Status: Acute Assessment and Plan: Patient tested positive for Covid on 02/03/2021 Chest x-ray indicates pneumonia WBC 14.6>13.5>16.5>17.1. We will closely monitor WBCs will possibly need to adjust antibiotic treatment CRP 19.1>>10>22.7 Continue azithromycin and Rocephin Continue dexamethasone and remdesivir Pneumonia more than likely bacterial Continue nebulized 02/07/2021 Continue with Remdesivir, Decadron, Rocephin, Azithromycin, add Baricitinib, currently HFNC 60L/min and 80%, repeat ABG shows mild improvement, will recheck ABG at 1900 hours, Discussed Pt with Dr. Thompson, Pulmonoalogist with much thanks for recommendations, Unable to recommend transfer or not at this time as he is unable to see in the chart d/t down time and/or not able to see the Pt in person. Will adjust HFNC up to 60L/min and 100% as needed currently at 60L/min and 80%, and if needed start BiPAP, Baricitinib has been started. Pt has agreed to prone himself as much as possible. CTA shows no PE, continue Lovenox 30mg daily, will repeat ABG at 1900 hours 02/08/[address]: IMPRESSION: 1. Mild evolution of diffuse bilateral lung disease with appearance favoring COVID pneumonia with coalescence of portions of the groundglass opacities into smaller more dense regions of consolidation/atelectasis. No new or enlarging regions of lung disease. Continue with regimen, Pt tolerated NC @ 6L/min with NRB @ 15L/min when he went to CT today. (2) Acute renal failure: Qualifiers: Acute renal failure type: unspecified Qualified Code(s): N17.9 - Acute kidney failure, unspecified Code(s): N17.9 - Acute kidney failure, unspecified Status: Acute Assessment and Plan: Creatinine2.31>1.99 >1.65 >1.38 baseline appears to be at 1.50, trending down Possibly secondary to infection Avoid nephrotoxic agents Renal dose medication 02/07/2021 Cr 1.44 and appears to be at baseline 02/08/2021 Cr 1.58 will continue to monitor (3) HTN (hypertension): Code(s): I10 - Essential (primary) hypertension Status: Acute Assessment and Plan: Stable Continue amlodipine Vital signs as ordered Will adjust medication as needed 02/07/2021 VSS and will continue to monitor and will make changes as needed. 02/08/2021 VS continue to be stable, no changes to medications (4) HLD (hyperlipidemia): Code(s): E78.5 - Hyperlipidemia, unspecified Status: Acute Assessment and Plan: Statins on hold due to elevated liver enzymes (5) BPH (benign prostatic hyperplasia): Code(s): N40.0 - Benign prostatic hyperplasia without lower urinary tract symptoms Status: Acute Assessment and Plan: Continue Flomax (6) Elevated transaminase level: Code(s): R74.01 - Elevation of levels of liver transaminase levels Status: Acute Assessment and Plan: AST 565>440>294>2111 AKE353>116>94>87 Possibly secondary to infection Trending down We will continue to monitor Statins on hold 02/07/2021 AST 141, ALT 88, improving, continue to monitor 02/08/2021 AST 102, ALT 86, improving (7) Elevated troponin: Code(s): R77.8 - Other specified abnormalities of plasma proteins Status: Acute Assessment and Plan: Troponin 73.1> 64.9> 52.3 Not believed to be cardiac related EKG sinus rhythm with a heart rate in the 70s Will treat underlying cause 02/07/2021 Troponin today 12 02/08/2021 No chest pain, Pt to have Echo today Results of Echocardiogram: Summary 1. Complete two-dimensional, color flow and Doppler transthoracic echocardiogram is performed. 2. Left ventricular chamber dimension is normal. 3. Left ventricular systolic function is normal, estimated at 65-70%. 4. There is mildly increased left ventricular wall thickness.
[2021-02-08] MEDS: BARICITINIB 2 MG TABLET PO (16:26)
[2021-02-08] MEDS: TAMSULOSIN HCL 0.4 MG CAPSULE PO (21:01)
[2021-02-08] MEDS: traZODone HCL 25 MG TABLET PO (21:01)
[2021-02-08] MEDS: amLODIPine BESYLATE 2.5 MG TABLET PO (21:01)
[2021-02-08] MEDS: ASPIRIN 81 MG CHEWABLE TABLET PO (21:01)
[2021-02-08] MEDS: LORazepam INJ (*CRX) 2 MG/ML VIAL 0.5 MG IV PUSH (21:04)
--- NOTE | 2021-02-08 23:12 | PC.NURSE ---
Completed change of shift report. Patient is resting comfortably, with no signs of pain or discomfort. Today was patient's birthday. He has had visits from family, with them in the parking lot, and the patient looking out the window. Patient has learned how to turn from side to side to keep his O2 sats up. He is mostly 95% and above, although occasionally he will fall down to 89%. This has improved since yesterday. He is now on 45L/min of 80% oxygen.
[2021-02-09] VITALS (9 sets, daily range): BP systolic 100–132; BP diastolic 54–91; PULSE 56–86; RESP 20–25; TEMP 36.6–37.2; O2SAT 90–99
--- NOTE | 2021-02-09 02:04 | PC.NURSE ---
Patient rounding completed. Patient sleeping comfortably in bed, with no signs of pain or discomfort. Patient is sleeping on his side, with a heart rate of 56 and an O2 sat of 96%.
[2021-02-09 05:55] LABS: Alanine Aminotransferase 123 U/L (16-63); Estimated CRCL calculation 28 ml/min; Estimated Glomerular Filt Rate 45
[2021-02-09 05:56] LABS: INR 1.2; Prothrombin Time 12.2 Seconds (9.50-12.10)
--- NOTE | 2021-02-09 06:39 | PC.NURSE ---
Patient rounding completed. Patient slept better tonight than last night. Patient's O2 sats were above 90% from 1930 until almost 0030. After he was encouraged to lay on his side, his O2 sats increased and were above 90% until approximately 0315. The nasal canula was not in the patient's nose, and his O2 sats dropped to below 80%. The canula was replaced, but continued to become dislodged until about 0600. Patient was again asked to lay on his side, the nasal canula was again replaced, and the patient was able to stay above 90% O2 sats.
--- NOTE | 2021-02-09 08:23 | P.PNIM_ITS ---
Progress Note: A&P Assessment and Plan (1) Pneumonia due to COVID-19 virus: Code(s): U07.1 - COVID-19; J12.82 - Pneumonia due to coronavirus disease 2019 <KATHLEEN Mathis - Last Filed: 02/09/21 11:39> Status: Acute <KATHLEEN Mathis - Last Filed: 02/09/21 11:39> Assessment and Plan: * Patient tested positive for Covid on 02/03/2021 * Chest x-ray indicates pneumonia * WBC 14.6>13.5>16.5>17.1. We will closely monitor WBCs will possibly need to adjust antibiotic treatment * CRP 19.1>>10>22.7 * Continue azithromycin and Rocephin * Continue dexamethasone and remdesivir * Pneumonia more than likely bacterial * Continue nebulized 02/07/2021 Continue with Remdesivir, Decadron, Rocephin, Azithromycin, add Baricitinib, currently HFNC 60L/min and 80%, repeat ABG shows mild improvement, will recheck ABG at 1900 hours, Discussed Pt with Dr. Thompson, Pulmonoalogist with much thanks for recommendations, Unable to recommend transfer or not at this time as he is unable to see in the chart d/t down time and/or not able to see the Pt in person. Will adjust HFNC up to 60L/min and 100% as needed currentl y at 60L/min and 80%, and if needed start BiPAP, Baricitinib has been started. Pt has agreed to prone himself as much as possible. CTA shows no PE, continue Lovenox 30mg daily, will repeat ABG at 1900 hours 02/08/[address]: IMPRESSION: 1. Mild evolution of diffuse bilateral lung disease with appearance favoring COVID pneumonia with coalescence of portions of the groundglass opacities into smaller more dense regions of consolidation/atelectasis. No new or enlarging regions of lung disease. Continue with regimen, Pt tolerated NC @ 6L/min with NRB @ 15L/min when he went to CT today. 02/09/2021 Blood Cx NGTD, continue with current regimen, last dose of Remdesivir is 02/10/2021, WBC ^17.1 likely d/t Decadron, will continue to monitor and look for other source of infection <Joe Snow RISK AND COMPLIANCE ANALYTICS DIRECTOR-C - Last Filed: 02/09/21 11:39> (2) Acute renal failure: Qualifiers: Acute renal failure type: unspecified Qualified Code(s): N17.9 - Acute kidney failure, unspecified <Joe Snow RISK AND COMPLIANCE ANALYTICS DIRECTOR-C - Last Filed: 02/09/21 11:39> Code(s): N17.9 - Acute kidney failure, unspecified <Joe Snow RISK AND COMPLIANCE ANALYTICS DIRECTOR-C - Last Filed: 02/09/21 11:39> Status: Acute <Joe Snow RISK AND COMPLIANCE ANALYTICS DIRECTOR-C - Last Filed: 02/09/21 11:39> Assessment and Plan: * Creatinine2.31>1.99 >1.65 >1.38 baseline appears to be at 1.50, trending down * Possibly secondary to infection * Avoid nephrotoxic agents * Renal dose medication 02/07/2021 Cr 1.44 and appears to be at baseline 02/08/2021 Cr 1.58 will continue to monitor 02/09/2021 Cr 1.49, Fluid balance + 4600ml <Joe Snow RISK AND COMPLIANCE ANALYTICS DIRECTOR-C - Last Filed: 02/09/21 11:39> (3) HTN (hypertension): Code(s): I10 - Essential (primary) hypertension <Joe Snow RISK AND COMPLIANCE ANALYTICS DIRECTOR-C - Last Filed: 02/09/21 11:39> Status: Acute <Joe Snow RISK AND COMPLIANCE ANALYTICS DIRECTOR-C - Last Filed: 02/09/21 11:39> Assessment and Plan: * Stable * Continue amlodipine * Vital signs as ordered * Will adjust medication as needed 02/07/2021 VSS and will continue to monitor and will make changes as needed. 02/08/2021 VS continue to be stable, no changes to medications 02/09/2021 BP 110-130/50-90, HR 57-74, no changes at this time <Joe Snow RISK AND COMPLIANCE ANALYTICS DIRECTOR-C - Last Filed: 02/09/21 11:39> (4) HLD (hyperlipidemia): Code(s): E78.5 - Hyperlipidemia, unspecified <KATHLEEN Mathis - Last Filed: 02/09/21 11:39> Status: Acute <KATHLEEN Mathis - Last Filed: 02/09/21 11:39> Assessm
--- NOTE | 2021-02-09 08:23 | PM.IMPN ---
Progress Note: A&P Assessment and Plan (1) Pneumonia due to COVID-19 virus: Code(s): U07.1 - COVID-19; J12.82 - Pneumonia due to coronavirus disease 2019 <KATHLEEN Mathis - Last Filed: 02/09/21 11:39> Status: Acute <KATHLEEN Mathis - Last Filed: 02/09/21 11:39> Assessment and Plan: Patient tested positive for Covid on 02/03/2021 Chest x-ray indicates pneumonia WBC 14.6>13.5>16.5>17.1. We will closely monitor WBCs will possibly need to adjust antibiotic treatment CRP 19.1>>10>22.7 Continue azithromycin and Rocephin Continue dexamethasone and remdesivir Pneumonia more than likely bacterial Continue nebulized 02/07/2021 Continue with Remdesivir, Decadron, Rocephin, Azithromycin, add Baricitinib, currently HFNC 60L/min and 80%, repeat ABG shows mild improvement, will recheck ABG at 1900 hours, Discussed Pt with Dr. Thompson, Pulmonoalogist with much thanks for recommendations, Unable to recommend transfer or not at this time as he is unable to see in the chart d/t down time and/or not able to see the Pt in person. Will adjust HFNC up to 60L/min and 100% as needed currently at 60L/min and 80%, and if needed start BiPAP, Baricitinib has been started. Pt has agreed to prone himself as much as possible. CTA shows no PE, continue Lovenox 30mg daily, will repeat ABG at 1900 hours 02/08/[address]: IMPRESSION: 1. Mild evolution of diffuse bilateral lung disease with appearance favoring COVID pneumonia with coalescence of portions of the groundglass opacities into smaller more dense regions of consolidation/atelectasis. No new or enlarging regions of lung disease. Continue with regimen, Pt tolerated NC @ 6L/min with NRB @ 15L/min when he went to CT today. 02/09/2021 Blood Cx NGTD, continue with current regimen, last dose of Remdesivir is 02/10/2021, WBC ^17.1 likely d/t Decadron, will continue to monitor and look for other source of infection <Joe Snow APN-C - Last Filed: 02/09/21 11:39> (2) Acute renal failure: Qualifiers: Acute renal failure type: unspecified Qualified Code(s): N17.9 - Acute kidney failure, unspecified <MICHELLE MathisN-C - Last Filed: 02/09/21 11:39> Code(s): N17.9 - Acute kidney failure, unspecified <MICHELLE MathisN-C - Last Filed: 02/09/21 11:39> Status: Acute <Joe Snow SUPERVISOR ACCOUNTS RECEIVABLE-C - Last Filed: 02/09/21 11:39> Assessment and Plan: Creatinine2.31>1.99 >1.65 >1.38 baseline appears to be at 1.50, trending down Possibly secondary to infection Avoid nephrotoxic agents Renal dose medication 02/07/2021 Cr 1.44 and appears to be at baseline 02/08/2021 Cr 1.58 will continue to monitor 02/09/2021 Cr 1.49, Fluid balance + 4600ml <MICHELLE MathisN-C - Last Filed: 02/09/21 11:39> (3) HTN (hypertension): Code(s): I10 - Essential (primary) hypertension <Joe Snow APN-C - Last Filed: 02/09/21 11:39> Status: Acute <MICHELLE MathisN-C - Last Filed: 02/09/21 11:39> Assessment and Plan: Stable Continue amlodipine Vital signs as ordered Will adjust medication as needed 02/07/2021 VSS and will continue to monitor and will make changes as needed. 02/08/2021 VS continue to be stable, no changes to medications 02/09/2021 BP 110-130/50-90, HR 57-74, no changes at this time <Joe Snow APN-C - Last Filed: 02/09/21 11:39> (4) HLD (hyperlipidemia): Code(s): E78.5 - Hyperlipidemia, unspecified <MICHELLE MathisN-C - Last Filed: 02/09/21 11:39> Status: Acute <KATHLEEN Mathis - Last Filed: 02/09/21 11:39> Assessment and Plan: Statins on hold due to elevated liver enzymes <KATHLEEN Mathis - Last Filed: 02/09/21 11:39> (5) BPH (benign prostatic hyperplasia): Code(s): N40.0 - Benign prostatic hyperplasia without lower urinary tract symptoms <KATHLEEN Mathis - Last Filed: 02/09/21 11:39> Status:
[2021-02-09 08:36] LABS: Hematocrit 31.8 % (37.0-46.0); Hemoglobin 10.4 g/dL (12.4-15.3); Mean Corpuscular HGB Conc 32.7 g/dL (32.0-36.0); Mean Corpuscular Hemoglobin 34.3 pg (27.0-31.0); Mean Platelet Volume 11.4 fl (8.7-11.0); Platelet Count Result 325 K/mm3 (150-420); Red Blood Count 3.03 M/mm3 (4.70-6.10); White Blood Count 17.1 K/mm3 (4.8-10.8)
[2021-02-09] MEDS: REMDESIVIR 100 MG/NS 250 ML 100 MG/250 ML BAG 250 MG IVPB (08:40)
[2021-02-09 08:48] LABS: Anion Gap 8 mmol/L (8-16); Blood Urea Nitrogen 44 mg/dL (7-18); Calcium 8.5 mg/dL (8.5-10.1); Carbon Dioxide 29 mmol/L (21-32); Chloride 103 mmol/L (98-108); Estimated CRCL calculation 29 ml/min; Estimated Glomerular Filt Rate 46; Glucose 134 mg/dL (70-99); Osmolality Calculated 303 mOsm/kg (285-295); Potassium 4.3 mmol/L (3.5-5.1); Sodium 140 mmol/L (136-145)
[2021-02-09] MEDS: ALBUTEROL SULFATE (*SP) INHALER 2 PUFF INHALATION ×4 (09:02→20:59)
[2021-02-09] MEDS: BUDESONIDE/FORMOTEROL (*SP) 160-4.5 MCG 6 GM INH 2 PUFF INHALATION ×2 (09:02→20:59)
[2021-02-09] MEDS: ENOXAPARIN 30 MG/0.3 ML SYRINGE SUB-Q (09:03)
[2021-02-09] MEDS: CITALOPRAM HYDROBROMIDE 10 MG TABLET PO (09:03)
[2021-02-09] MEDS: DEXAMETHASONE SOD PHOS INJ 4 MG/ML VIAL 6 MG IV PUSH (09:03)
[2021-02-09] MEDS: FUROSEMIDE INJ 40 MG/4 ML VIAL 20 MG IV PUSH ×2 (09:05→16:59)
--- NOTE | 2021-02-09 11:30 | PC.NURSE ---
Update given to pt's daughter Lucia via telephone. All questions answered.
--- NOTE | 2021-02-09 16:14 | PC.NURSE ---
Raheel placed onto right side, O2 sat at 80%. Adjusted O2 O2 sat increased to 86 %. denied any breathing difficulties No SOB, No distress noted call light placed in reach HOB elevated 90 degrees. Soliz cath emptied 1,000 cc pale clear yellow urine. Will continue to monitor and observe.
[2021-02-09] MEDS: BARICITINIB 2 MG TABLET PO (17:00)
[2021-02-09] MEDS: ASPIRIN 81 MG CHEWABLE TABLET PO (20:03)
[2021-02-09] MEDS: amLODIPine BESYLATE 2.5 MG TABLET PO (20:03)
[2021-02-09] MEDS: ACETAMINOPHEN 500 MG TABLET 1000 MG PO (20:05)
[2021-02-09] MEDS: traZODone HCL 25 MG TABLET PO (20:05)
[2021-02-09] MEDS: TAMSULOSIN HCL 0.4 MG CAPSULE PO (20:06)
[2021-02-10] VITALS (8 sets, daily range): BP systolic 102–132; BP diastolic 52–84; PULSE 62–76; RESP 20; TEMP 36.4–36.9; O2SAT 91–98
[2021-02-10] MEDS: ACETAMINOPHEN 500 MG TABLET 1000 MG PO (02:56)
[2021-02-10 05:31] LABS: Hematocrit 31.5 % (37.0-46.0); Hemoglobin 10.5 g/dL (12.4-15.3); Mean Corpuscular HGB Conc 33.3 g/dL (32.0-36.0); Mean Corpuscular Hemoglobin 34.2 pg (27.0-31.0); Mean Corpuscular Volume 102.6 fL (78.0-102.0); Mean Platelet Volume 10.9 fl (8.7-11.0); Platelet Count Result 359 K/mm3 (150-420); Red Blood Count 3.07 M/mm3 (4.70-6.10); Red Cell Distribution Width 12.7 % (11.6-14.4); White Blood Count 19.9 K/mm3 (4.8-10.8)
[2021-02-10 05:39] LABS: Anion Gap 9 mmol/L (8-16); Blood Urea Nitrogen 53 mg/dL (7-18); Calcium 8.6 mg/dL (8.5-10.1); Carbon Dioxide 28 mmol/L (21-32); Chloride 101 mmol/L (98-108); Estimated CRCL calculation 24 ml/min; Estimated Glomerular Filt Rate 37; Glucose 146 mg/dL (70-99); Osmolality Calculated 303 mOsm/kg (285-295); Potassium 4.3 mmol/L (3.5-5.1); Sodium 138 mmol/L (136-145)
--- NOTE | 2021-02-10 07:19 | PC.NURSE ---
patient had no events over night, patient layed prone for about an hour and saturations improved from 87% to 97% throughout night adequate urine output per balderas catheter, patient makes needs well known. tylenol given for comfort over night.
--- NOTE | 2021-02-10 07:59 | PM.IMPN ---
Progress Note: A&P Assessment and Plan (1) Pneumonia due to COVID-19 virus: Code(s): U07.1 - COVID-19; J12.82 - Pneumonia due to coronavirus disease 2019 Status: Acute Assessment and Plan: Patient tested positive for Covid on 02/03/2021 Chest x-ray indicates pneumonia WBC 14.6>13.5>16.5>17.1. We will closely monitor WBCs will possibly need to adjust antibiotic treatment CRP 19.1>>10>22.7 Continue azithromycin and Rocephin Continue dexamethasone and remdesivir Pneumonia more than likely bacterial Continue nebulized 02/07/2021 Continue with Remdesivir, Decadron, Rocephin, Azithromycin, add Baricitinib, currently HFNC 60L/min and 80%, repeat ABG shows mild improvement, will recheck ABG at 1900 hours, Discussed Pt with Dr. Thompson, Pulmonoalogist with much thanks for recommendations, Unable to recommend transfer or not at this time as he is unable to see in the chart d/t down time and/or not able to see the Pt in person. Will adjust HFNC up to 60L/min and 100% as needed currently at 60L/min and 80%, and if needed start BiPAP, Baricitinib has been started. Pt has agreed to prone himself as much as possible. CTA shows no PE, continue Lovenox 30mg daily, will repeat ABG at 1900 hours 02/08/[address]: IMPRESSION: 1. Mild evolution of diffuse bilateral lung disease with appearance favoring COVID pneumonia with coalescence of portions of the groundglass opacities into smaller more dense regions of consolidation/atelectasis. No new or enlarging regions of lung disease. Continue with regimen, Pt tolerated NC @ 6L/min with NRB @ 15L/min when he went to CT today. 02/09/2021 Blood Cx NGTD, continue with current regimen, last dose of Remdesivir is 02/10/2021, WBC ^17.1 likely d/t Decadron, will continue to monitor and look for other source of infection 02/10/2021 Blood Cx continues to show NGTD since 02/03, WBC ^19.9, No complaint of SOB, no cough, lung sounds stable, decreased HFNC to 55L/min at 80% with SpO2 maintaining 93%, will monitor (2) Acute renal failure: Qualifiers: Acute renal failure type: unspecified Qualified Code(s): N17.9 - Acute kidney failure, unspecified Code(s): N17.9 - Acute kidney failure, unspecified Status: Acute Assessment and Plan: Creatinine2.31>1.99 >1.65 >1.38 baseline appears to be at 1.50, trending down Possibly secondary to infection Avoid nephrotoxic agents Renal dose medication 02/07/2021 Cr 1.44 and appears to be at baseline 02/08/2021 Cr 1.58 will continue to monitor 02/09/2021 Cr 1.49, Fluid balance + 4600ml 02/10/2021 Cr 1.75, +3800 fluid balance (3) HTN (hypertension): Code(s): I10 - Essential (primary) hypertension Status: Acute Assessment and Plan: Stable Continue amlodipine Vital signs as ordered Will adjust medication as needed 02/07/2021 VSS and will continue to monitor and will make changes as needed. 02/08/2021 VS continue to be stable, no changes to medications 02/09/2021 BP 110-130/50-90, HR 57-74, no changes at this time 02/10/2021 BP 100-130/50-70, HR 60s, stable, no pain, no SOB (4) HLD (hyperlipidemia): Code(s): E78.5 - Hyperlipidemia, unspecified Status: Acute Assessment and Plan: Statins on hold due to elevated liver enzymes (5) BPH (benign prostatic hyperplasia): Code(s): N40.0 - Benign prostatic hyperplasia without lower urinary tract symptoms Status: Acute Assessment and Plan: Continue Flomax (6) Elevated transaminase level: Code(s): R74.01 - Elevation of levels of liver transaminase levels Status: Acute Assessment and Plan: AST 565>440>294>2111 HOL688>116>94>87 Possibly secondary to infection Trending down We will continue to monitor Statins on hold 02/07/2021 AST 141, ALT 88, improving, continue to monitor 02/08/2021 AST 102, ALT 86, improving 02/09/2021 ALT 123, last dose of Remdesivir is 02/10/2021 02/10/2021 will obtain levels in AM (7) Elevated troponin:
[2021-02-10] MEDS: DEXAMETHASONE SOD PHOS INJ 4 MG/ML VIAL 6 MG IV PUSH (09:21)
[2021-02-10] MEDS: FUROSEMIDE INJ 40 MG/4 ML VIAL 20 MG IV PUSH ×2 (09:21→16:49)
[2021-02-10] MEDS: ENOXAPARIN 30 MG/0.3 ML SYRINGE SUB-Q (09:21)
[2021-02-10] MEDS: BUDESONIDE/FORMOTEROL (*SP) 160-4.5 MCG 6 GM INH 2 PUFF INHALATION ×2 (09:22→20:38)
[2021-02-10] MEDS: CITALOPRAM HYDROBROMIDE 10 MG TABLET PO (09:22)
[2021-02-10] MEDS: ALBUTEROL SULFATE (*SP) INHALER 2 PUFF INHALATION ×4 (09:22→20:38)
--- NOTE | 2021-02-10 10:00 | PC.NURSE ---
Patient assisted into prone position, call light and phone in reach.
--- NOTE | 2021-02-10 15:30 | ED.WOUNDLAC ---
HPI - Wound/Laceration General Source: patient and family Mode of arrival: ambulatory Limitations: no limitations Related Data Home Medications Medication Instructions Recorded Confirmed amlodipine 2.5 mg PO HS 02/01/21 02/03/21 aspirin [Baby Aspirin] 81 mg PO HS 02/01/21 02/03/21 citalopram 10 mg PO DAILY 02/01/21 02/03/21 simvastatin 10 mg PO DAILY 02/01/21 02/03/21 tamsulosin 0.4 mg PO HS 02/01/21 02/03/21 Allergies Allergy/AdvReac Type Severity Reaction Status Date / Time No Known Allergies Allergy Verified 02/01/21 20:05 [facility] Past Medical History Medical History BPH (benign prostatic hyperplasia) HLD (hyperlipidemia) HTN (hypertension) Social History Social History Smoking status: Never smoker Alcohol intake: current Substance use: never Substance use type: does not use Spiritual care concerns: No Course Vital Signs Vital signs: Vital Signs Temperature 37.2 C 02/03/21 19:00 Pulse Rate 88 02/03/21 19:00 Respiratory Rate 20 02/03/21 19:00 Blood Pressure 115/54 L 02/03/21 19:00 Pulse Oximetry 93 02/03/21 19:00 Temperature 36.4 C 02/10/21 12:00 Pulse Rate 64 02/10/21 12:00 Respiratory Rate 20 02/10/21 12:00 Blood Pressure 121/56 L 02/10/21 12:00 Pulse Oximetry 98 02/10/21 12:00 MDM - Wound/Laceration Lab Data Result diagrams: 02/10/21 05:02 02/10/21 05:02 Labs: Lab Results 02/03/21 02/03/21 02/03/21 Range/Units 19:09 19:47 19:47 WBC 14.6 H (4.8-10.8) K/mm3 RBC 3.32 L (4.70-6.10) M/mm3 Hgb 11.6 L (12.4-15.3) g/dL Hct 34.1 L (37.0-46.0) % MCV 102.7 H (78.0-102.0) fL MCH 34.9 H (27.0-31.0) pg MCHC 34.0 (32.0-36.0) g/dL RDW 13.0 (11.6-14.4) % Plt Count 185 (150-420) K/mm3 MPV 11.3 H (8.7-11.0) fl Immature Gran % (Auto) 0.8 H (0.0-0.0) % Neut % (Auto) 87.3 H (50.0-70.0) % Lymph % (Auto) 2.4 L (18.0-42.0) % [place] % (Auto) 8.9 (2.0-11.0) % Eos % (Auto) 0.1 L (1.0-6.0) % Baso % (Auto) 0.5 (0.0-1.0) % Lymph # (Auto) 0.35 L (1.10-4.50) K/mm3 [place] # (Auto) 1.30 H (0.10-0.90) K/mm3 Eos # (Auto) 0.02 (0.02-0.50) K/mm3 Baso # (Auto) 0.07 (0.00-0.10) K/mm3 Abs Immat Gran (auto) 0.12 H (0.00-0.00) K/mm3 Absolute Neuts (auto) 12.7 H (1.7-7.2) K/mm3 Absolute Nucleated RBC 0.00 (0.00-0.00) K/mm3 Nucleated RBC % 0.0 (0-0.0) % PT (9.50-12.10) Seconds INR APTT (23.90-30.70) SEC Sodium (136-145) mmol/L Potassium (3.5-5.1) mmol/L Chloride (98-108) mmol/L Carbon Dioxide (21-32) mmol/L Anion Gap (8-16) mmol/L BUN (7-18) mg/dL Creatinine (0.70-1.30) mg/dL Estim Creat Clear Calc ml/min Estimated GFR (59 - ) Glucose (70-99) mg/dL Calculated Osmolality (285-295) mOsm/kg Lactic Acid (0.4-2.0) mmol/L Calcium (8.5-10.1) mg/dL Total Bilirubin (0.00-1.00) mg/dL AST (15-37) U/L ALT (16-63) U/L Alkaline Phosphatase (46-116) U/L Troponin I (0.00-60.4) ng/L C-Reactive Protein (0.0-0.9) mg/dL NT-Pro-B Natriuret Pep (0-450) pg/mL Total Protein (6.4-8.2) g/dL Albumin (3.4-5.0) g/dL Urine Color Yellow (Yellow) Urine Appearance Sl cloudy A (Clear) Urine pH 6.0 (5.0-8.0) Ur Specific [place] >= 1.030 H (1.010-1.020) Urine Protein 1+ H (Negative) Urine Glucose (UA) Negative (Negative) Urine Ketones 1+ H (Negative) Ur Blood (Man) 3+ H (Negative) Urine Nitrate Negative (Negative) Urine Bilirubin Negative (Negative) Urine Urobilinogen 0.2 (0.2-1.0) mg/dL Ur Leukocyte Esterase Negative (Negative) Urine RBC 0-2 (0-2) /hpf Urine WBC None seen (0-3) /hpf Ur Squamous Epith Cells Rare (Few) /hpf Amorphous Sediment Moderate
[2021-02-10] MEDS: BARICITINIB 2 MG TABLET PO (16:48)
--- NOTE | 2021-02-10 18:10 | PC.NURSE ---
Patient tolerating hi flow oxygen per nasal cannula with O2 sats high 90s, titrated flow to 55L/min with FiO2 @80%. O2 saturation 96%.
[2021-02-10] MEDS: traZODone HCL 25 MG TABLET PO (20:39)
[2021-02-10] MEDS: ASPIRIN 81 MG CHEWABLE TABLET PO (20:39)
[2021-02-10] MEDS: amLODIPine BESYLATE 2.5 MG TABLET PO (20:39)
[2021-02-10] MEDS: TAMSULOSIN HCL 0.4 MG CAPSULE PO (20:39)
--- NOTE | 2021-02-10 21:31 | PC.NURSE ---
Patient laid in prone position for about 1 hour. Continuous Sp02 and telemetry intact. Sp02 at 98%, continues on hi-flow therapy per nasal cannula at 55L/80%. Tolerated positioning well.
--- NOTE | 2021-02-10 22:31 | PC.NURSE ---
Patient was assisted to BSC with walker. Tolerated well, Denies SOB during activity. BM small and loose. Patient stated felt good to get out of bed and move around. saw man notified.
--- NOTE | 2021-02-11 01:15 | PC.NURSE ---
Patient requested to reposition to prone position. [employer] Weapons Crewmember assisted with positioning. Patient able to turn with minimal assistance from handbook writer. Continues with telemetry and continuous Sp02. HR-61 NSR and Sp02 at 98% with hi-flow therapy nasal cannula. Monitoring.
[2021-02-11 04:00] VITALS: BP 98/62; PULSE 64; RESP 20; TEMP 36.1; O2SAT 93
[2021-02-11 05:22] VITALS: O2SAT 93
[2021-02-11 05:58] LABS: Hematocrit 32.5 % (37.0-46.0); Hemoglobin 10.9 g/dL (12.4-15.3); Mean Corpuscular HGB Conc 33.5 g/dL (32.0-36.0); Mean Corpuscular Hemoglobin 34.3 pg (27.0-31.0); Mean Corpuscular Volume 102.2 fL (78.0-102.0); Mean Platelet Volume 10.8 fl (8.7-11.0); Platelet Count Result 383 K/mm3 (150-420); Red Blood Count 3.18 M/mm3 (4.70-6.10); Red Cell Distribution Width 12.7 % (11.6-14.4)
[2021-02-11 06:04] LABS: White Blood Count 25.2 K/mm3 (4.8-10.8)
[2021-02-11 06:11] LABS: INR 1.1; Prothrombin Time 11.4 Seconds (9.50-12.10)
[2021-02-11 06:14] LABS: Alanine Aminotransferase 146 U/L (16-63); Albumin Level 2.8 g/dL (3.4-5.0); Alkaline Phosphatase 80 U/L (46-116); Anion Gap 9 mmol/L (8-16); Aspartate Amino Transferase 67 U/L (15-37); Bilirubin,Total 0.5 mg/dL (0.00-1.00); Blood Urea Nitrogen 48 mg/dL (7-18); Calcium 8.1 mg/dL (8.5-10.1); Carbon Dioxide 29 mmol/L (21-32); Chloride 98 mmol/L (98-108); Estimated CRCL calculation 26 ml/min; Estimated Glomerular Filt Rate 40; Glucose 132 mg/dL (70-99); Osmolality Calculated 296 mOsm/kg (285-295); Potassium 4.2 mmol/L (3.5-5.1); Sodium 136 mmol/L (136-145); Total Protein 6.9 g/dL (6.4-8.2)
--- NOTE | 2021-02-11 06:30 | PCDIET ---
Addendum entered by Flavia Reynolds RN 02/11/21 06:40: this is to be a nursing note, not nutrition Original Note: Critical lab value 0 (WBC) documented in notes and called to Dr Fuentes, will pass on results to next care provider this AM.
--- NOTE | 2021-02-11 06:30 | PC.NURSE ---
Critical lab value (WBC) called to Dr Fuentes and documented in notes. ERP to pass on to next care provider this AM. No new orders at this time.
[2021-02-11 06:37] LABS: Band Neutrophils Percent 0 % (0-6); Basophils Percent Manual 0 % (0-1); Eosinophils Percent Manual 0 % (1-6); Lymphocytes Absolute Manual 1.76 K/mm3 (1.1-4.5); Lymphocytes Percent Manual 7 % (18-44); Monocytes Absolute Manual 2.01 K/mm3 (0.1-0.90); Monocytes Percent Manual 8 % (3-9); Myelocytes Percent 3 %; Neutrophils Absolute Manual 20.66 K/mm3 (1.3-6.7); Neutrophils Percent Manual 82 % (46-73)
[2021-02-11 06:38] LABS: Platelet Estimate Adequate (Adequate)
[2021-02-11 08:00] VITALS: BP 128/60; PULSE 64; RESP 20; TEMP 36.6; O2SAT 98
--- NOTE | 2021-02-11 08:21 | PM.IMPN ---
Progress Note: A&P Assessment and Plan (1) Pneumonia due to COVID-19 virus: Code(s): U07.1 - COVID-19; J12.82 - Pneumonia due to coronavirus disease 2019 <KATHLEEN Mathis - Last Filed: 02/11/21 15:17> Status: Acute <Joe HudsonKATHLEEN Vernon - Last Filed: 02/11/21 15:17> Assessment and Plan: 02/11/2021 Positive for COVID on 02/03/2021, Has finished Remdesivir on 02/09/2021, continuing with Rocephin, Azithromycin, and Dexamethasone, WBC has been climbing and now at 25.2 and no signs of additional infection identified, no sites of additional infection identified, he has been getting looser stools and will send this for a C diff, will stop the Baricitinib, will start Florastor, HFNC slowly being weaned now at 55L/min and 80% with SpO2 >91% <KATHLEEN Mathis - Last Filed: 02/11/21 15:17> (2) Acute renal failure: Qualifiers: Acute renal failure type: unspecified Qualified Code(s): N17.9 - Acute kidney failure, unspecified <KATHLEEN Mathis - Last Filed: 02/11/21 15:17> Code(s): N17.9 - Acute kidney failure, unspecified <KATHLEEN Mathis - Last Filed: 02/11/21 15:17> Status: Acute <KATHLEEN Mathis - Last Filed: 02/11/21 15:17> Assessment and Plan: 02/11/2021 Still at baseline and stable, Cr 1.65, BUN 48, eCrCl 26, cGFR 40, continue to avoid Nephrotoxic agents and renal dose medications, continue to monitor, Fluid balance + 3.2L, 1.69 ml/kg/h urinary output <KATHLEEN Mathis - Last Filed: 02/11/21 15:17> (3) HTN (hypertension): Code(s): I10 - Essential (primary) hypertension <KATHLEEN Mathis - Last Filed: 02/11/21 15:17> Status: Acute <Joe Snow COLLEGE AND CAREER COUNSELOR-C - Last Filed: 02/11/21 15:17> Assessment and Plan: 02/11/2021 BP a little soft this AM 98/62 with HR in the 60s, no medication adjustments at this time, AM Lasix held today <Joe Snow COLLEGE AND CAREER COUNSELOR-C - Last Filed: 02/11/21 15:17> (4) HLD (hyperlipidemia): Code(s): E78.5 - Hyperlipidemia, unspecified <Joe Snow COLLEGE AND CAREER COUNSELOR-C - Last Filed: 02/11/21 15:17> Status: Acute <Joe Snow COLLEGE AND CAREER COUNSELOR-C - Last Filed: 02/11/21 15:17> Assessment and Plan: Statins on hold due to elevated liver enzymes <Joe Snow COLLEGE AND CAREER COUNSELOR-C - Last Filed: 02/11/21 15:17> (5) BPH (benign prostatic hyperplasia): Code(s): N40.0 - Benign prostatic hyperplasia without lower urinary tract symptoms <Joe Snow COLLEGE AND CAREER COUNSELOR-C - Last Filed: 02/11/21 15:17> Status: Acute <Joe Snow COLLEGE AND CAREER COUNSELOR-C - Last Filed: 02/11/21 15:17> Assessment and Plan: Continue Flomax <Joe Snow COLLEGE AND CAREER COUNSELOR-C - Last Filed: 02/11/21 15:17> (6) Elevated transaminase level: Code(s): R74.01 - Elevation of levels of liver transaminase levels <Joe Snow COLLEGE AND CAREER COUNSELOR-C - Last Filed: 02/11/21 15:17> Status: Acute <Joe Snow COLLEGE AND CAREER COUNSELOR-C - Last Filed: 02/11/21 15:17> Assessment and Plan: 02/11/2021 AST 67, ALT 146, Remdesivir complete and Baricitinib stopped <Joe Snow COLLEGE AND CAREER COUNSELOR-C - Last Filed: 02/11/21 15:17> (7) Elevated troponin: Code(s): R77.8 - Other specified abnormalities of plasma proteins <Joe Snow, COLLEGE AND CAREER COUNSELOR-C - Last Filed: 02/11/21 15:17> Status: Acute <Joe Snow, COLLEGE AND CAREER COUNSELOR-C - Last Filed: 02/11/21 15:17> Assessment and Plan: Troponin 73.1> 64.9> 52.3 Not believed to be cardiac related EKG sinus rhythm with a heart rate in the 70s Will treat underlying cause 02/07/2021 Troponin today 12 02/08/2021 No chest pain, Pt to have Echo today Results of Echocardiogram: Summary 1. Complete two-dimensional, color flow and Doppler transthoracic echocardiogram is performed. 2. Left ventricular chamber dimension is normal. 3. Left ventricular systolic function is normal, estimated at 65-70%. 4. There is mildly increased left ventricular w
[2021-02-11] MEDS: DEXAMETHASONE SOD PHOS INJ 4 MG/ML VIAL 6 MG IV PUSH (09:16)
[2021-02-11] MEDS: CITALOPRAM HYDROBROMIDE 10 MG TABLET PO (09:17)
[2021-02-11] MEDS: ALBUTEROL SULFATE (*SP) INHALER 2 PUFF INHALATION ×4 (09:17→20:46)
[2021-02-11] MEDS: ACETAMINOPHEN 500 MG TABLET 1000 MG PO (09:17)
[2021-02-11] MEDS: ENOXAPARIN 30 MG/0.3 ML SYRINGE SUB-Q (09:17)
[2021-02-11] MEDS: BUDESONIDE/FORMOTEROL (*SP) 160-4.5 MCG 6 GM INH 2 PUFF INHALATION ×2 (09:18→20:46)
[2021-02-11 12:00] VITALS: BP 142/70; PULSE 66; RESP 18; TEMP 36.8; O2SAT 98
[2021-02-11 16:00] VITALS: BP 126/72; PULSE 66; RESP 18; TEMP 36.6; O2SAT 96
[2021-02-11] MEDS: SACCHAROMYCES BOULARDII 250 MG CAPSULE PO (17:51)
[2021-02-11] MEDS: FUROSEMIDE INJ 40 MG/4 ML VIAL 20 MG IV PUSH (17:51)
[2021-02-11 20:00] VITALS: BP 118/55; PULSE 68; RESP 20; TEMP 36.6; O2SAT 92
[2021-02-11] MEDS: amLODIPine BESYLATE 2.5 MG TABLET PO (20:46)
[2021-02-11] MEDS: traZODone HCL 25 MG TABLET PO (20:47)
[2021-02-11] MEDS: TAMSULOSIN HCL 0.4 MG CAPSULE PO (20:47)
[2021-02-11] MEDS: ASPIRIN 81 MG CHEWABLE TABLET PO (20:47)
[2021-02-12] VITALS (8 sets, daily range): BP systolic 109–129; BP diastolic 50–68; PULSE 59–75; RESP 18–20; TEMP 36–36.7; O2SAT 92–97
[2021-02-12 07:08] LABS: Hematocrit 37.3 % (37.0-46.0); Hemoglobin 12.5 g/dL (12.4-15.3); Mean Corpuscular HGB Conc 33.5 g/dL (32.0-36.0); Mean Corpuscular Hemoglobin 34.4 pg (27.0-31.0); Mean Corpuscular Volume 102.8 fL (78.0-102.0); Mean Platelet Volume 10.4 fl (8.7-11.0); Platelet Count Result 443 K/mm3 (150-420); Red Blood Count 3.63 M/mm3 (4.70-6.10); Red Cell Distribution Width 12.7 % (11.6-14.4)
[2021-02-12 07:36] LABS: Blood Urea Nitrogen 47 mg/dL (7-18); Calcium 8.6 mg/dL (8.5-10.1); Carbon Dioxide 30 mmol/L (21-32); Estimated CRCL calculation 26 ml/min; Estimated Glomerular Filt Rate 41; Glucose 124 mg/dL (70-99)
[2021-02-12 07:45] LABS: Alanine Aminotransferase 123 U/L (16-63)
[2021-02-12] MEDS: CITALOPRAM HYDROBROMIDE 10 MG TABLET PO (08:41)
[2021-02-12] MEDS: SACCHAROMYCES BOULARDII 250 MG CAPSULE PO ×2 (08:41→18:08)
[2021-02-12] MEDS: FUROSEMIDE INJ 40 MG/4 ML VIAL 20 MG IV PUSH ×2 (08:42→18:08)
[2021-02-12] MEDS: DEXAMETHASONE SOD PHOS INJ 4 MG/ML VIAL 6 MG IV PUSH (08:45)
[2021-02-12] MEDS: ENOXAPARIN 30 MG/0.3 ML SYRINGE SUB-Q (08:45)
[2021-02-12] MEDS: BUDESONIDE/FORMOTEROL (*SP) 160-4.5 MCG 6 GM INH 2 PUFF INHALATION ×2 (08:46→20:29)
[2021-02-12] MEDS: ALBUTEROL SULFATE (*SP) INHALER 2 PUFF INHALATION ×4 (08:47→20:29)
--- NOTE | 2021-02-12 13:20 | PC.NURSE ---
Patient placed in prone position
[2021-02-12 13:44] LABS: Anion Gap 9 mmol/L (8-16); Chloride 95 mmol/L (98-107); Osmolality Calculated 291 mOsm/kg (285-295); Potassium 4.9 mmol/L (3.4-5.0); Sodium 134 mmol/L (137-145)
--- NOTE | 2021-02-12 14:13 | PM.IMPN ---
Progress Note: A&P Assessment and Plan (1) Pneumonia due to COVID-19 virus: Code(s): U07.1 - COVID-19; J12.82 - Pneumonia due to coronavirus disease 2019 Status: Acute Assessment and Plan: 02/11/2021 Positive for COVID on 02/03/2021, Has finished Remdesivir on 02/09/2021, continuing with Rocephin, Azithromycin, and Dexamethasone, WBC has been climbing and now at 25.2 and no signs of additional infection identified, no sites of additional infection identified, he has been getting looser stools and will send this for a C diff, will stop the Baricitinib, will start Florastor, HFNC slowly being weaned now at 55L/min and 80% with SpO2 >91% 02/12/2021 Lungs are improved today, rhonchi in bases otherwise clear, auscultated while Pt was in Prone/Swimmers position, When prone SpO2 is 99%, WBC elevated to 30,000 with no new sites of infection identified, obtained new Blood Cx, UA, added Zosyn to replace Rocephin, no fevers (2) Acute renal failure: Qualifiers: Acute renal failure type: unspecified Qualified Code(s): N17.9 - Acute kidney failure, unspecified Code(s): N17.9 - Acute kidney failure, unspecified Status: Acute Assessment and Plan: 02/11/2021 Still at baseline and stable, Cr 1.65, BUN 48, eCrCl 26, cGFR 40, continue to avoid Nephrotoxic agents and renal dose medications, continue to monitor, Fluid balance + 3.2L, 1.69 ml/kg/h urinary output 02/12/2021 Remains at baseline, Cr 1.62, eGFR 41, eCrCl 26, will continue to monitor (3) HTN (hypertension): Code(s): I10 - Essential (primary) hypertension Status: Acute Assessment and Plan: 02/11/2021 BP a little soft this AM 98/62 with HR in the 60s, no medication adjustments at this time, AM Lasix held today 02/12/2021 VSS, no changes to medications at this time. (4) HLD (hyperlipidemia): Code(s): E78.5 - Hyperlipidemia, unspecified Status: Acute Assessment and Plan: Statins on hold due to elevated liver enzymes (5) BPH (benign prostatic hyperplasia): Code(s): N40.0 - Benign prostatic hyperplasia without lower urinary tract symptoms Status: Acute Assessment and Plan: Continue Flomax (6) Elevated transaminase level: Code(s): R74.01 - Elevation of levels of liver transaminase levels Status: Acute Assessment and Plan: 02/11/2021 AST 67, ALT 146, Remdesivir complete and Baricitinib stopped 02/12/2021 ALT 123 (7) Elevated troponin: Code(s): R77.8 - Other specified abnormalities of plasma proteins Status: Acute Assessment and Plan: Troponin 73.1> 64.9> 52.3 Not believed to be cardiac related EKG sinus rhythm with a heart rate in the 70s Will treat underlying cause 02/07/2021 Troponin today 12 02/08/2021 No chest pain, Pt to have Echo today Results of Echocardiogram: Summary 1. Complete two-dimensional, color flow and Doppler transthoracic echocardiogram is performed. 2. Left ventricular chamber dimension is normal. 3. Left ventricular systolic function is normal, estimated at 65-70%. 4. There is mildly increased left ventricular wall thickness. 5. The left ventricular diastolic function is grade I diastolic dysfunction. 6. E/e' 7 is not elevated. 7. There is mild aortic valve regurgitation. 8. No pulmonary hypertension, estimated pulmonary arterial systolic pressure is 29 mmHg. (8) UTI (urinary tract infection): Code(s): N39.0 - Urinary tract infection, site not specified Status: Acute Assessment and Plan: Patient treated for UTI on 02/01/2021 Bactrim discontinued no growth in urine culture 02/12/2021 Obtained new urine d/t elevated WBC of 30,000 Subjective Date/time seen: 02/12/21 14:13 Upon entering room I found patient in the prone position. Patient has been doing pretty well with prone in himself. He does not have any complaints of shortness of breath today. He is able to stand up out of bed pivot to the
[2021-02-12 20:05] LABS: Add Urine Microscopic? YES; Appearance Urine Clear (Clear); Bilirubin Urine Negative (Negative); Blood Urine 3+ (Negative); Color Urine Light Yellow (Yellow); Glucose Urine UA Negative (Negative); Ketones Urine Negative (Negative); Leukocyte Esterase Ur Negative (Negative); Nitrate Urine Negative (Negative); Protein Urine Trace (Negative); Urobilinogen Urine 0.2 mg/dL (0.2-1.0)
[2021-02-12 20:10] LABS: RBC Urine 21-50 /hpf (0-2); Squamous Epithelial Cell Urine Rare /hpf (Few)
[2021-02-12 20:11] LABS: Bacteria Urine Trace /hpf; WBC Urine 0-3 /hpf (0-3)
[2021-02-12] MEDS: amLODIPine BESYLATE 2.5 MG TABLET PO (20:29)
[2021-02-12] MEDS: ASPIRIN 81 MG CHEWABLE TABLET PO (20:29)
[2021-02-12] MEDS: traZODone HCL 25 MG TABLET PO (20:30)
[2021-02-12] MEDS: TAMSULOSIN HCL 0.4 MG CAPSULE PO (23:26)
[2021-02-13] VITALS (12 sets, daily range): BP systolic 115–143; BP diastolic 57–73; PULSE 60–84; RESP 16–20; TEMP 36.3–36.8; O2SAT 92–98
[2021-02-13 05:40] LABS: Hemoglobin 11.7 g/dL (12.4-15.3); Mean Corpuscular HGB Conc 33.4 g/dL (32.0-36.0); Mean Corpuscular Hemoglobin 33.9 pg (27.0-31.0); Mean Corpuscular Volume 101.4 fL (78.0-102.0); Mean Platelet Volume 10.9 fl (8.7-11.0); Platelet Count Result 386 K/mm3 (150-420); Red Blood Count 3.45 M/mm3 (4.70-6.10); Red Cell Distribution Width 12.8 % (11.6-14.4)
[2021-02-13 05:48] LABS: White Blood Count 29.1 K/mm3 (4.8-10.8)
[2021-02-13 05:50] LABS: Anion Gap 9 mmol/L (8-16); Blood Urea Nitrogen 48 mg/dL (7-18); Calcium 8.3 mg/dL (8.5-10.1); Carbon Dioxide 31 mmol/L (21-32); Chloride 96 mmol/L (98-108); Estimated CRCL calculation 26 ml/min; Estimated Glomerular Filt Rate 40; Glucose 137 mg/dL (70-99); Osmolality Calculated 296 mOsm/kg (285-295); Potassium 4.3 mmol/L (3.5-5.1); Sodium 136 mmol/L (136-145)
--- NOTE | 2021-02-13 07:30 | PC.NURSE ---
Assisted to BSC, on commode, started to lean to the right, lifted back in to bed, noted to have low saturation 83%, once back to bed, felt better and saturation improved t 93%, no change in high flow oxygen at this time, report to hospitalist.
[2021-02-13] MEDS: ALBUTEROL SULFATE (*SP) INHALER 2 PUFF INHALATION ×4 (09:07→20:05)
[2021-02-13] MEDS: BUDESONIDE/FORMOTEROL (*SP) 160-4.5 MCG 6 GM INH 2 PUFF INHALATION ×2 (09:07→20:05)
[2021-02-13] MEDS: SACCHAROMYCES BOULARDII 250 MG CAPSULE PO ×2 (09:08→17:19)
[2021-02-13] MEDS: DEXAMETHASONE SOD PHOS INJ 4 MG/ML VIAL 6 MG IV PUSH (09:08)
[2021-02-13] MEDS: ENOXAPARIN 30 MG/0.3 ML SYRINGE SUB-Q (09:08)
[2021-02-13] MEDS: FUROSEMIDE INJ 40 MG/4 ML VIAL 20 MG IV PUSH ×2 (09:08→17:19)
[2021-02-13] MEDS: CITALOPRAM HYDROBROMIDE 10 MG TABLET PO (09:09)
--- NOTE | 2021-02-13 11:07 | PM.IMPN ---
Progress Note: A&P Assessment and Plan (1) Pneumonia due to COVID-19 virus: Code(s): U07.1 - COVID-19; J12.82 - Pneumonia due to coronavirus disease 2019 <KATHLEEN Mathis - Last Filed: 02/13/21 12:46> Status: Acute <KATHLEEN Mathis - Last Filed: 02/13/21 12:46> Assessment and Plan: 02/11/2021 Positive for COVID on 02/03/2021, Has finished Remdesivir on 02/09/2021, continuing with Rocephin, Azithromycin, and Dexamethasone, WBC has been climbing and now at 25.2 and no signs of additional infection identified, no sites of additional infection identified, he has been getting looser stools and will send this for a C diff, will stop the Baricitinib, will start Florastor, HFNC slowly being weaned now at 55L/min and 80% with SpO2 >91% 02/12/2021 Lungs are improved today, rhonchi in bases otherwise clear, auscultated while Pt was in Prone/Swimmers position, When prone SpO2 is 99%, WBC elevated to 30,000 with no new sites of infection identified, obtained new Blood Cx, UA, added Zosyn to replace Rocephin, no fevers 02/13/2021 Lung sounds improved today, rhonchi in posterior bases otherwise clear, No c/o respiratory distress, SOB or increased WOB <KATHLEEN Mathis - Last Filed: 02/13/21 12:46> (2) Acute renal failure: Qualifiers: Acute renal failure type: unspecified Qualified Code(s): N17.9 - Acute kidney failure, unspecified <KATHLEEN Mathis - Last Filed: 02/13/21 12:46> Code(s): N17.9 - Acute kidney failure, unspecified <KATHLEEN Mathis - Last Filed: 02/13/21 12:46> Status: Acute <KATHLEEN Mathis - Last Filed: 02/13/21 12:46> Assessment and Plan: 02/11/2021 Still at baseline and stable, Cr 1.65, BUN 48, eCrCl 26, cGFR 40, continue to avoid Nephrotoxic agents and renal dose medications, continue to monitor, Fluid balance + 3.2L, 1.69 ml/kg/h urinary output 02/12/2021 Remains at baseline, Cr 1.62, eGFR 41, eCrCl 26, will continue to monitor 02/13/2021 Cr 1.66, eGFR 40, eCrCl 26, stable <Joe Snow, ADULT SECONDARY EDUCATION INSTRUCTOR-C - Last Filed: 02/13/21 12:46> (3) HTN (hypertension): Code(s): I10 - Essential (primary) hypertension <Joe Snow, ADULT SECONDARY EDUCATION INSTRUCTOR-C - Last Filed: 02/13/21 12:46> Status: Acute <Joe Snow, ADULT SECONDARY EDUCATION INSTRUCTOR-C - Last Filed: 02/13/21 12:46> Assessment and Plan: 02/11/2021 BP a little soft this AM 98/62 with HR in the 60s, no medication adjustments at this time, AM Lasix held today 02/12/2021 VSS, no changes to medications at this time. 02/13/2021 VSS, continue with current regimen <Joe Snow, ADULT SECONDARY EDUCATION INSTRUCTOR-C - Last Filed: 02/13/21 12:46> (4) HLD (hyperlipidemia): Code(s): E78.5 - Hyperlipidemia, unspecified <Joe Snow, ADULT SECONDARY EDUCATION INSTRUCTOR-C - Last Filed: 02/13/21 12:46> Status: Acute <Joe Snow, ADULT SECONDARY EDUCATION INSTRUCTOR-C - Last Filed: 02/13/21 12:46> Assessment and Plan: Statins on hold due to elevated liver enzymes <Joe Snow, ADULT SECONDARY EDUCATION INSTRUCTOR-C - Last Filed: 02/13/21 12:46> (5) BPH (benign prostatic hyperplasia): Code(s): N40.0 - Benign prostatic hyperplasia without lower urinary tract symptoms <Joe Snow, ADULT SECONDARY EDUCATION INSTRUCTOR-C - Last Filed: 02/13/21 12:46> Status: Acute <Joe Sallie Snow, ADULT SECONDARY EDUCATION INSTRUCTOR-C - Last Filed: 02/13/21 12:46> Assessment and Plan: Continue Flomax <Joe Snow, ADULT SECONDARY EDUCATION INSTRUCTOR-C - Last Filed: 02/13/21 12:46> (6) Elevated transaminase level: Code(s): R74.01 - Elevation of levels of liver transaminase levels <KATHLEEN Mathis - Last Filed: 02/13/21 12:46> Status: Acute <KATHLEEN Mathis - Last Filed: 02/13/21 12:46> Assessment and Plan: 02/11/2021 AST 67, ALT 146, Remdesivir complete and Baricitinib stopped 02/12/2021 ALT 123 02/13/2021 no longer taking Remdesivir or Baricitinib <KATHLEEN Mathis - Last Filed: 02/13/21 12:46> (7) Elevated troponin: Code(s): R77.8 - Other specified abnormalities of plasma p
[2021-02-13] MEDS: ASPIRIN 81 MG CHEWABLE TABLET PO (20:06)
[2021-02-13] MEDS: TAMSULOSIN HCL 0.4 MG CAPSULE PO (20:06)
[2021-02-13] MEDS: traZODone HCL 25 MG TABLET PO (20:06)
[2021-02-13] MEDS: amLODIPine BESYLATE 2.5 MG TABLET PO (20:07)
[2021-02-14] VITALS (8 sets, daily range): BP systolic 107–129; BP diastolic 60–67; PULSE 61–76; RESP 18–22; TEMP 36.2–36.8; O2SAT 89–96
[2021-02-14 05:23] LABS: Hematocrit 33.6 % (37.0-46.0); Hemoglobin 11.2 g/dL (12.4-15.3); Mean Corpuscular HGB Conc 33.3 g/dL (32.0-36.0); Mean Corpuscular Hemoglobin 33.8 pg (27.0-31.0); Mean Corpuscular Volume 101.5 fL (78.0-102.0); Mean Platelet Volume 10.4 fl (8.7-11.0); Platelet Count Result 348 K/mm3 (150-420); Red Blood Count 3.31 M/mm3 (4.70-6.10)
[2021-02-14 05:27] LABS: White Blood Count 29.6 K/mm3 (4.8-10.8)
[2021-02-14 05:34] LABS: Anion Gap 7 mmol/L (8-16); Blood Urea Nitrogen 50 mg/dL (7-18); Calcium 8.3 mg/dL (8.5-10.1); Carbon Dioxide 32 mmol/L (21-32); Chloride 96 mmol/L (98-108); Estimated CRCL calculation 25 ml/min; Estimated Glomerular Filt Rate 38; Glucose 146 mg/dL (70-99); Osmolality Calculated 296 mOsm/kg (285-295); Potassium 4.3 mmol/L (3.5-5.1); Sodium 135 mmol/L (136-145)
--- NOTE | 2021-02-14 06:54 | PC.NURSE ---
doctor notified of critical WBC. New order received to repeat blood cultures.
[2021-02-14] MEDS: FUROSEMIDE INJ 40 MG/4 ML VIAL 20 MG IV PUSH ×2 (08:44→16:49)
[2021-02-14] MEDS: ENOXAPARIN 30 MG/0.3 ML SYRINGE SUB-Q (08:44)
[2021-02-14] MEDS: DEXAMETHASONE SOD PHOS INJ 4 MG/ML VIAL 6 MG IV PUSH (08:44)
[2021-02-14] MEDS: CITALOPRAM HYDROBROMIDE 10 MG TABLET PO (08:44)
[2021-02-14] MEDS: SACCHAROMYCES BOULARDII 250 MG CAPSULE PO ×2 (08:44→16:49)
[2021-02-14] MEDS: BUDESONIDE/FORMOTEROL (*SP) 160-4.5 MCG 6 GM INH 2 PUFF INHALATION ×2 (08:45→21:26)
[2021-02-14] MEDS: ALBUTEROL SULFATE (*SP) INHALER 2 PUFF INHALATION ×4 (08:45→21:25)
[2021-02-14 10:15] LABS: Base Excess ABG 5.8 mmol/L (0-2); HCO3 ABG 28.7 mmol/L (23-29); Oxygen Content ABG 17.3 %vol (16.0-22.0); Oxygen Saturation ABG 95.5 % (95-97); Oxyhemoglobin 94.9 % (94-100); PO2 ABG 78.5 mmHg (75-85); Total Hemoglobin 12.9 g/dL (12.0-18.0); pH ABG 7.52 (7.35-7.45)
[2021-02-14 10:20] LABS: Device HIGH FLOW NASAL CANN; Modified Allen's Test Pass; Site Drawn RIGHT RADIAL
--- NOTE | 2021-02-14 12:57 | PM.IMPN ---
Progress Note: A&P Assessment and Plan (1) Pneumonia due to COVID-19 virus: Code(s): U07.1 - COVID-19; J12.82 - Pneumonia due to coronavirus disease 2019 <KATHLEEN Mathis - Last Filed: 02/14/21 13:20> Status: Acute <KATHLEEN Mathis - Last Filed: 02/14/21 13:20> Assessment and Plan: 02/11/2021 Positive for COVID on 02/03/2021, Has finished Remdesivir on 02/09/2021, continuing with Rocephin, Azithromycin, and Dexamethasone, WBC has been climbing and now at 25.2 and no signs of additional infection identified, no sites of additional infection identified, he has been getting looser stools and will send this for a C diff, will stop the Baricitinib, will start Florastor, HFNC slowly being weaned now at 55L/min and 80% with SpO2 >91% 02/12/2021 Lungs are improved today, rhonchi in bases otherwise clear, auscultated while Pt was in Prone/Swimmers position, When prone SpO2 is 99%, WBC elevated to 30,000 with no new sites of infection identified, obtained new Blood Cx, UA, added Zosyn to replace Rocephin, no fevers 02/13/2021 Lung sounds improved today, rhonchi in posterior bases otherwise clear, No c/o respiratory distress, SOB or increased WOB 02/14/2021 Weaning HFNC now at 55L/min and 55% for SpO2 of 94%, Mild rhonchi in posterior bases otherwise clear, continue with Zosyn, Azithromycin is finished, Spoke with Dr. Anton, Hem/Onc regarding elevated WBC with no apparent secondary infection other than the resolving COVID, today was last dose of Dexamethasone, Dr. Anton stated he will see the Pt in his office after he is discharged and recovered from COVID <KATHLEEN Mathis - Last Filed: 02/14/21 13:20> (2) Acute renal failure: Qualifiers: Acute renal failure type: unspecified Qualified Code(s): N17.9 - Acute kidney failure, unspecified <KATHLEEN Mathis - Last Filed: 02/14/21 13:20> Code(s): N17.9 - Acute kidney failure, unspecified <Joe Snow SWEATBAND DRUMMER-C - Last Filed: 02/14/21 13:20> Status: Acute <Joe Snow SWEATBAND DRUMMER-C - Last Filed: 02/14/21 13:20> Assessment and Plan: 02/11/2021 Still at baseline and stable, Cr 1.65, BUN 48, eCrCl 26, cGFR 40, continue to avoid Nephrotoxic agents and renal dose medications, continue to monitor, Fluid balance + 3.2L, 1.69 ml/kg/h urinary output 02/12/2021 Remains at baseline, Cr 1.62, eGFR 41, eCrCl 26, will continue to monitor 02/13/2021 Cr 1.66, eGFR 40, eCrCl 26, stable 02/14/2021 Cr 1.71, eGFR 38, eCrCl 25, baseline looks to be 1.4-1.6 <Joe Snow SWEATBAND DRUMMER-C - Last Filed: 02/14/21 13:20> (3) HTN (hypertension): Code(s): I10 - Essential (primary) hypertension <Joe Snow SWEATBAND DRUMMER-C - Last Filed: 02/14/21 13:20> Status: Acute <Joe Snow SWEATBAND DRUMMER-C - Last Filed: 02/14/21 13:20> Assessment and Plan: 02/11/2021 BP a little soft this AM 98/62 with HR in the 60s, no medication adjustments at this time, AM Lasix held today 02/12/2021 VSS, no changes to medications at this time. 02/13/2021 VSS, continue with current regimen 02/14/2021 BP 120-130/60s HR 70s, no changes <Joe Martinezcamilla SWEATBAND DRUMMER-C - Last Filed: 02/14/21 13:20> (4) HLD (hyperlipidemia): Code(s): E78.5 - Hyperlipidemia, unspecified <Joe Martinezcamilla SWEATBAND DRUMMER-C - Last Filed: 02/14/21 13:20> Status: Acute <Joe Snow SWEATBAND DRUMMER-C - Last Filed: 02/14/21 13:20> Assessment and Plan: Statins on hold due to elevated liver enzymes <KATHLEEN Mathis - Last Filed: 02/14/21 13:20> (5) BPH (benign prostatic hyperplasia): Code(s): N40.0 - Benign prostatic hyperplasia without lower urinary tract symptoms <KATHLEEN Mathis - Last Filed: 02/14/21 13:20> Status: Acute <KATHLEEN Mathis - Last Filed: 02/14/21 13:20> Assessment and Plan: Continue Flomax <KATHLEEN Mathis - Last Filed: 02/14/21 13:20> (6) Elevated transaminase level: Code(s):
--- NOTE | 2021-02-14 13:00 | PC.NURSE ---
Discharge disposition charted on wrong patient. Pt is not discharging or transferring at this time.
--- NOTE | 2021-02-14 13:45 | PC.NURSE ---
Update given to daughter Lucia via telephone. All questions answered.
[2021-02-14] MEDS: amLODIPine BESYLATE 2.5 MG TABLET PO (21:26)
[2021-02-14] MEDS: TAMSULOSIN HCL 0.4 MG CAPSULE PO (21:27)
[2021-02-14] MEDS: traZODone HCL 25 MG TABLET PO (21:27)
[2021-02-14] MEDS: ASPIRIN 81 MG CHEWABLE TABLET PO (21:28)
[2021-02-15] VITALS (8 sets, daily range): BP systolic 98–144; BP diastolic 48–84; PULSE 60–75; RESP 16–22; TEMP 36.3–37.2; O2SAT 94–99
[2021-02-15 05:51] LABS: Hematocrit 33.6 % (37.0-46.0); Hemoglobin 11.3 g/dL (12.4-15.3); Mean Corpuscular HGB Conc 33.6 g/dL (32.0-36.0); Mean Corpuscular Hemoglobin 34.2 pg (27.0-31.0); Mean Corpuscular Volume 101.8 fL (78.0-102.0); Mean Platelet Volume 10.2 fl (8.7-11.0); Platelet Count Result 345 K/mm3 (150-420); Red Cell Distribution Width 12.8 % (11.6-14.4)
[2021-02-15 05:58] LABS: White Blood Count 29.8 K/mm3 (4.8-10.8)
[2021-02-15 06:01] LABS: Anion Gap 6 mmol/L (8-16); Blood Urea Nitrogen 52 mg/dL (7-18); Calcium 8.3 mg/dL (8.5-10.1); Carbon Dioxide 32 mmol/L (21-32); Chloride 96 mmol/L (98-108); Estimated CRCL calculation 26 ml/min; Estimated Glomerular Filt Rate 40; Glucose 130 mg/dL (70-99); Osmolality Calculated 294 mOsm/kg (285-295); Potassium 4.6 mmol/L (3.5-5.1); Sodium 134 mmol/L (136-145)
[2021-02-15 06:03] LABS: Band Neutrophils Percent 0 % (0-6); Basophils Percent Manual 0 % (0-1); Eosinophils Percent Manual 0 % (1-6); Lymphocytes Absolute Manual 1.19 K/mm3 (1.1-4.5); Lymphocytes Percent Manual 4 % (18-44); Monocytes Absolute Manual 0.59 K/mm3 (0.1-0.90); Monocytes Percent Manual 2 % (3-9); Neutrophils Absolute Manual 28.01 K/mm3 (1.3-6.7); Neutrophils Percent Manual 94 % (46-73)
[2021-02-15 06:04] LABS: Platelet Estimate Adequate (Adequate)
--- NOTE | 2021-02-15 06:20 | PC.NURSE ---
Critical lab result reported to doctor. No new orders.
[2021-02-15] MEDS: SACCHAROMYCES BOULARDII 250 MG CAPSULE PO ×2 (08:23→16:57)
[2021-02-15] MEDS: BUDESONIDE/FORMOTEROL (*SP) 160-4.5 MCG 6 GM INH 2 PUFF INHALATION ×2 (08:23→20:36)
[2021-02-15] MEDS: ALBUTEROL SULFATE (*SP) INHALER 2 PUFF INHALATION ×4 (08:23→20:36)
[2021-02-15] MEDS: CITALOPRAM HYDROBROMIDE 10 MG TABLET PO (08:23)
[2021-02-15] MEDS: FUROSEMIDE INJ 40 MG/4 ML VIAL 20 MG IV PUSH ×2 (08:24→16:56)
[2021-02-15] MEDS: ENOXAPARIN 30 MG/0.3 ML SYRINGE SUB-Q (08:24)
--- NOTE | 2021-02-15 08:27 | PM.IMPN ---
Progress Note: A&P Assessment and Plan (1) Pneumonia due to COVID-19 virus: Code(s): U07.1 - COVID-19; J12.82 - Pneumonia due to coronavirus disease 2019 Status: Acute Assessment and Plan: 02/11/2021 Positive for COVID on 02/03/2021, Has finished Remdesivir on 02/09/2021, continuing with Rocephin, Azithromycin, and Dexamethasone, WBC has been climbing and now at 25.2 and no signs of additional infection identified, no sites of additional infection identified, he has been getting looser stools and will send this for a C diff, will stop the Baricitinib, will start Florastor, HFNC slowly being weaned now at 55L/min and 80% with SpO2 >91% 02/12/2021 Lungs are improved today, rhonchi in bases otherwise clear, auscultated while Pt was in Prone/Swimmers position, When prone SpO2 is 99%, WBC elevated to 30,000 with no new sites of infection identified, obtained new Blood Cx, UA, added Zosyn to replace Rocephin, no fevers 02/13/2021 Lung sounds improved today, rhonchi in posterior bases otherwise clear, No c/o respiratory distress, SOB or increased WOB 02/14/2021 Weaning HFNC now at 55L/min and 55% for SpO2 of 94%, Mild rhonchi in posterior bases otherwise clear, continue with Zosyn, Azithromycin is finished, Spoke with Dr. Anton, Hem/Onc regarding elevated WBC with no apparent secondary infection other than the resolving COVID, today was last dose of Dexamethasone, Dr. Anton stated he will see the Pt in his office after he is discharged and recovered from COVID 02/15/2021 Spoke with RT regarding further weaning and the possibility of using another oxygen delivery system. RT is going to look into this and try a few ideas. No SOB, he does have a dip in SpO2 while getting up to the commode and moving about the room (2) Acute renal failure: Qualifiers: Acute renal failure type: unspecified Qualified Code(s): N17.9 - Acute kidney failure, unspecified Code(s): N17.9 - Acute kidney failure, unspecified Status: Acute Assessment and Plan: 02/11/2021 Still at baseline and stable, Cr 1.65, BUN 48, eCrCl 26, cGFR 40, continue to avoid Nephrotoxic agents and renal dose medications, continue to monitor, Fluid balance + 3.2L, 1.69 ml/kg/h urinary output 02/12/2021 Remains at baseline, Cr 1.62, eGFR 41, eCrCl 26, will continue to monitor 02/13/2021 Cr 1.66, eGFR 40, eCrCl 26, stable 02/14/2021 Cr 1.71, eGFR 38, eCrCl 25, baseline looks to be 1.4-1.6 02/15/2021 Cr1.66, eCrCl 26, eGFR 40 (3) HTN (hypertension): Code(s): I10 - Essential (primary) hypertension Status: Acute Assessment and Plan: 02/11/2021 BP a little soft this AM 98/62 with HR in the 60s, no medication adjustments at this time, AM Lasix held today 02/12/2021 VSS, no changes to medications at this time. 02/13/2021 VSS, continue with current regimen 02/14/2021 BP 120-130/60s HR 70s, no changes 02/15/2021 VSS no changes at this time (4) HLD (hyperlipidemia): Code(s): E78.5 - Hyperlipidemia, unspecified Status: Acute Assessment and Plan: Statins on hold due to elevated liver enzymes (5) BPH (benign prostatic hyperplasia): Code(s): N40.0 - Benign prostatic hyperplasia without lower urinary tract symptoms Status: Acute Assessment and Plan: Continue Flomax (6) Elevated transaminase level: Code(s): R74.01 - Elevation of levels of liver transaminase levels Status: Acute Assessment and Plan: 02/11/2021 AST 67, ALT 146, Remdesivir complete and Baricitinib stopped 02/12/2021 ALT 123 02/13/2021 no longer taking Remdesivir or Baricitinib 02/14/2021 ... (7) Elevated troponin: Code(s): R77.8 - Other specified abnormalities of plasma proteins Status: Acute Assessment and Plan: Troponin 73.1> 64.9> 52.3 Not believed to be cardiac related EKG sinus rhythm with a heart rate in the 70s Will treat underlying cause 02/07/2021 Troponin today 12 02/08/2021 No chest pain, Pt to have Echo today Result
[2021-02-15] MEDS: ACETAMINOPHEN 500 MG TABLET 1000 MG PO (16:56)
[2021-02-15] MEDS: ASPIRIN 81 MG CHEWABLE TABLET PO (20:35)
[2021-02-15] MEDS: TAMSULOSIN HCL 0.4 MG CAPSULE PO (20:35)
[2021-02-15] MEDS: amLODIPine BESYLATE 2.5 MG TABLET PO (20:36)
[2021-02-15] MEDS: traZODone HCL 25 MG TABLET PO (20:36)
[2021-02-16] VITALS (7 sets, daily range): BP systolic 114–119; BP diastolic 47–70; PULSE 57–85; RESP 16–20; TEMP 36.2–37.2; O2SAT 94–99
[2021-02-16 05:37] LABS: Hematocrit 38.1 % (37.0-46.0); Hemoglobin 12.3 g/dL (12.4-15.3); Mean Corpuscular HGB Conc 32.3 g/dL (32.0-36.0); Mean Corpuscular Hemoglobin 33.3 pg (27.0-31.0); Mean Corpuscular Volume 103.3 fL (78.0-102.0); Platelet Count Result 339 K/mm3 (150-420); Red Blood Count 3.69 M/mm3 (4.70-6.10)
[2021-02-16 05:46] LABS: White Blood Count 25.2 K/mm3 (4.8-10.8)
[2021-02-16 05:48] LABS: Anion Gap 5 mmol/L (8-16); Blood Urea Nitrogen 53 mg/dL (7-18); Calcium 8.6 mg/dL (8.5-10.1); Carbon Dioxide 34 mmol/L (21-32); Chloride 97 mmol/L (98-108); Estimated CRCL calculation 25 ml/min; Estimated Glomerular Filt Rate 39; Glucose 100 mg/dL (70-99); Osmolality Calculated 296 mOsm/kg (285-295); Potassium 4.1 mmol/L (3.5-5.1); Sodium 136 mmol/L (136-145)
--- NOTE | 2021-02-16 08:22 | P.PN_ITS ---
Progress Note: A&P Assessment and Plan (1) Pneumonia due to COVID-19 virus: Code(s): U07.1 - COVID-19; J12.82 - Pneumonia due to coronavirus disease 2019 Status: Acute Assessment and Plan: * Patient tested positive for Covid on 02/03/2021 * Chest x-ray indicates pneumonia repeat does not indicate worsening * WBC 14.6>13.5>16.5>17.1. today 25.2 could possibly be related to use of dexamethasone that was discontinued yesterday. will closely monitor * CRP 19.1>>10>22.7 * completedazithromycin and Rocephin * dexamethasone last dose 02/16/21 and remdesivir completed 02/09/2021 * Pneumonia more than likely bacterial * Continue nebulized * patient currently tolerating 4 L nasal cannula * (2) Acute renal failure: Qualifiers: Acute renal failure type: unspecified Qualified Code(s): N17.9 - Acute kidney failure, unspecified Code(s): N17.9 - Acute kidney failure, unspecified Status: Acute Assessment and Plan: * Creatinine2.31>1.99 >1.65 >1.38 , today 1.69 baseline appears to be at 1.50. * Possibly secondary to infection * Avoid nephrotoxic agents * Renal dose medication (3) HTN (hypertension): Code(s): I10 - Essential (primary) hypertension Status: Acute Assessment and Plan: * Stable * Continue amlodipine * Vital signs as ordered * Will adjust medication as needed (4) HLD (hyperlipidemia): Code(s): E78.5 - Hyperlipidemia, unspecified Status: Acute Assessment and Plan: * Statins on hold due to elevated liver enzymes (5) BPH (benign prostatic hyperplasia): Code(s): N40.0 - Benign prostatic hyperplasia without lower urinary tract symptoms Status: Acute Assessment and Plan: * Continue Flomax (6) Elevated transaminase level: Code(s): R74.01 - Elevation of levels of liver transaminase levels Status: Acute Assessment and Plan: * AST 565>440>294>2111 02/11/21-61 * [id number]>116>94>87 02/11/21 -123 * Possibly secondary to infection * Trending down * We will continue to monitor * Statins on hold * will repeat tomorrow * Baricitinib stopped (7) Elevated troponin: Code(s): R77.8 - Other specified abnormalities of plasma proteins Status: Acute Assessment and Plan: * resolved * Troponin 73.1> 64.9> 52.3 * Not believed to be cardiac related * EKG sinus rhythm with a heart rate in the 70s * Will treat underlying cause (8) UTI (urinary tract infection): Code(s): N39.0 - Urinary tract infection, site not specified Status: Acute Assessment and Plan: * Patient /treated for UTI on 02/01/2021 * Bactri/m/ discontinued no growth in urine culture * today 02/16/2021 repeat UA and blood culture pending (9) Elevated white blood cell count, unspecified: Code(s): D72.829 - Elevated white blood cell count, unspecified Status: Acute Assessment and Plan: * possibly secondary with the use steroids * etiology unknown,possibly secondary with the use steroids * repeat chest x-ray does not indicate worsening pneumonia * UA with culture pending * blood gas no significant change from previous * will continues to trend * previous provider spoke with Dr. Anton mangle tender oncologist concerning patient elevated WBC, patient will need to follow-up with Dr. Anton as an outpatient (10) CHF (congestive heart failure): Code(s): I50.9 - Heart failure, unspecified Status: Acute Assessment and Plan: * echo indicates: 1. Complete two-di
--- NOTE | 2021-02-16 08:22 | WPDPN ---
Progress Note: A&P Assessment and Plan (1) Pneumonia due to COVID-19 virus: Code(s): U07.1 - COVID-19; J12.82 - Pneumonia due to coronavirus disease 2019 Status: Acute Assessment and Plan: Patient tested positive for Covid on 02/03/2021 Chest x-ray indicates pneumonia repeat does not indicate worsening WBC 14.6>13.5>16.5>17.1. today 25.2 could possibly be related to use of dexamethasone that was discontinued yesterday. will closely monitor CRP 19.1>>10>22.7 completedazithromycin and Rocephin dexamethasone last dose 02/16/21 and remdesivir completed 02/09/2021 Pneumonia more than likely bacterial Continue nebulized patient currently tolerating 4 L nasal cannula (2) Acute renal failure: Qualifiers: Acute renal failure type: unspecified Qualified Code(s): N17.9 - Acute kidney failure, unspecified Code(s): N17.9 - Acute kidney failure, unspecified Status: Acute Assessment and Plan: Creatinine2.31>1.99 >1.65 >1.38 , today 1.69 baseline appears to be at 1.50. Possibly secondary to infection Avoid nephrotoxic agents Renal dose medication (3) HTN (hypertension): Code(s): I10 - Essential (primary) hypertension Status: Acute Assessment and Plan: Stable Continue amlodipine Vital signs as ordered Will adjust medication as needed (4) HLD (hyperlipidemia): Code(s): E78.5 - Hyperlipidemia, unspecified Status: Acute Assessment and Plan: Statins on hold due to elevated liver enzymes (5) BPH (benign prostatic hyperplasia): Code(s): N40.0 - Benign prostatic hyperplasia without lower urinary tract symptoms Status: Acute Assessment and Plan: Continue Flomax (6) Elevated transaminase level: Code(s): R74.01 - Elevation of levels of liver transaminase levels Status: Acute Assessment and Plan: AST 565>440>294>2111 02/11/21-61 [id number]>116>94>87 02/11/21 -123 Possibly secondary to infection Trending down We will continue to monitor Statins on hold will repeat tomorrow Baricitinib stopped (7) Elevated troponin: Code(s): R77.8 - Other specified abnormalities of plasma proteins Status: Acute Assessment and Plan: resolved Troponin 73.1> 64.9> 52.3 Not believed to be cardiac related EKG sinus rhythm with a heart rate in the 70s Will treat underlying cause (8) UTI (urinary tract infection): Code(s): N39.0 - Urinary tract infection, site not specified Status: Acute Assessment and Plan: Patient /treated for UTI on 02/01/2021 Bactri/m/ discontinued no growth in urine culture today 02/16/2021 repeat UA and blood culture pending (9) Elevated white blood cell count, unspecified: Code(s): D72.829 - Elevated white blood cell count, unspecified Status: Acute Assessment and Plan: possibly secondary with the use steroids etiology unknown,possibly secondary with the use steroids repeat chest x-ray does not indicate worsening pneumonia UA with culture pending blood gas no significant change from previous will continues to trend previous provider spoke with Dr. Anton lokie engineer oncologist concerning patient elevated WBC, patient will need to follow-up with Dr. Anton as an outpatient (10) CHF (congestive heart failure): Code(s): I50.9 - Heart failure, unspecified Status: Acute Assessment and Plan: echo indicates: 1. Complete two-dimensional, color flow and Doppler transthoracic echocardiogram is performed. 2. Left ventricular chamber dimension is normal. 3. Left ventricular systolic function is normal, estimated at 65-70%. 4. There is mildly increased left ventricular wall thickness. 5. The left ventricular diastolic function is grade I diastolic dysfunction. 6. E/e' 7 is not elevated. 7. There is mild aortic valve regurgitation. 8. No pulmonary hypertension, est
[2021-02-16] MEDS: BUDESONIDE/FORMOTEROL (*SP) 160-4.5 MCG 6 GM INH 2 PUFF INHALATION ×2 (08:47→21:16)
[2021-02-16] MEDS: ALBUTEROL SULFATE (*SP) INHALER 2 PUFF INHALATION ×4 (08:47→21:14)
[2021-02-16] MEDS: CITALOPRAM HYDROBROMIDE 10 MG TABLET PO (08:48)
[2021-02-16] MEDS: FUROSEMIDE INJ 40 MG/4 ML VIAL 20 MG IV PUSH ×2 (08:48→16:45)
[2021-02-16] MEDS: ENOXAPARIN 30 MG/0.3 ML SYRINGE SUB-Q (08:49)
[2021-02-16] MEDS: SACCHAROMYCES BOULARDII 250 MG CAPSULE PO ×2 (08:49→16:45)
[2021-02-16 10:58] LABS: Base Excess ABG 8.4 mmol/L (0-2); HCO3 ABG 31.2 mmol/L (23-29); Oxygen Content ABG 17.3 %vol (16.0-22.0); Oxygen Saturation ABG 98.2 % (95-97); Oxyhemoglobin 97.6 % (94-100); PCO2 ABG 36.7 mmHg (35-45); PO2 ABG 112.3 mmHg (75-85); Total Hemoglobin 12.5 g/dL (12.0-18.0); pH ABG 7.55 (7.35-7.45)
[2021-02-16 11:01] LABS: Site Drawn RIGHT BRACHIAL
[2021-02-16 11:02] LABS: Device NASAL CANNULA
[2021-02-16 11:08] LABS: Add Urine Microscopic? YES; Appearance Urine Clear (Clear); Bilirubin Urine Negative (Negative); Blood Urine 3+ (Negative); Color Urine Light Yellow (Yellow); Glucose Urine UA Negative (Negative); Ketones Urine Negative (Negative); Leukocyte Esterase Ur Negative LEU/UL (Negative); Nitrate Urine Negative (Negative); Protein Urine Negative (Negative); Urobilinogen Urine 0.2 mg/dL (0.2-1.0); pH Urine 6.5 (5.0-8.0)
[2021-02-16 11:12] LABS: Bacteria Urine Trace /hpf; WBC Urine None seen /hpf (0-3)
--- NOTE | 2021-02-16 19:10 | PC.NURSE ---
Bedside change of shift report completed. Patient stated that he is feeling much better than earlier, and is not experiencing any pain at this time. He requested his radio to be turned on, and a station found to listen to. He was resting comfortably in bed listening to music, and stated that he did not need anything else at this time, but would like ice cream later on as a bedtime snack.
[2021-02-16] MEDS: traZODone HCL 25 MG TABLET PO (21:15)
[2021-02-16] MEDS: amLODIPine BESYLATE 2.5 MG TABLET PO (21:15)
[2021-02-16] MEDS: ASPIRIN 81 MG CHEWABLE TABLET PO (21:15)
[2021-02-16] MEDS: TAMSULOSIN HCL 0.4 MG CAPSULE PO (21:15)
--- NOTE | 2021-02-16 22:15 | PC.NURSE ---
Completed patient rounding. Patient is sleeping comfortably in bed, with no signs of pain or discomfort.
[2021-02-17] VITALS (8 sets, daily range): BP systolic 110–125; BP diastolic 48–64; PULSE 64–84; RESP 16–20; TEMP 36.3–36.9; O2SAT 92–98
--- NOTE | 2021-02-17 02:10 | PC.NURSE ---
Completed patient rounding. Patient is sleeping comfortably in bed, with no signs of pain or discomfort.
[2021-02-17 05:17] LABS: Hematocrit 32.7 % (37.0-46.0); Hemoglobin 10.8 g/dL (12.4-15.3); Mean Corpuscular Hemoglobin 34.3 pg (27.0-31.0); Mean Corpuscular Volume 103.8 fL (78.0-102.0); Mean Platelet Volume 9.8 fl (8.7-11.0); Platelet Count Result 278 K/mm3 (150-420); Red Blood Count 3.15 M/mm3 (4.70-6.10); Red Cell Distribution Width 13.2 % (11.6-14.4); White Blood Count 19.2 K/mm3 (4.8-10.8)
[2021-02-17 05:33] LABS: Anion Gap 6 mmol/L (8-16); Blood Urea Nitrogen 49 mg/dL (7-18); Calcium 8.3 mg/dL (8.5-10.1); Carbon Dioxide 33 mmol/L (21-32); Chloride 96 mmol/L (98-108); Estimated CRCL calculation 26 ml/min; Estimated Glomerular Filt Rate 40; Glucose 120 mg/dL (70-99); Osmolality Calculated 294 mOsm/kg (285-295); Sodium 135 mmol/L (136-145)
--- NOTE | 2021-02-17 06:08 | PC.NURSE ---
Completed patient rounding. Patient was resting in bed, listening to his radio. He stated that he did not have any pain, and did not need anything at this time.
--- NOTE | 2021-02-17 07:23 | PC.NURSE ---
Patient's daughter called last night, and is interested in knowing what type of equipment her father may need when he comes home. She would like to know ahead of time, so that she can purchase it.
[2021-02-17] MEDS: ALBUTEROL SULFATE (*SP) INHALER 2 PUFF INHALATION ×4 (08:20→21:42)
[2021-02-17] MEDS: CITALOPRAM HYDROBROMIDE 10 MG TABLET PO (09:20)
[2021-02-17] MEDS: SACCHAROMYCES BOULARDII 250 MG CAPSULE PO ×2 (09:30→17:16)
[2021-02-17] MEDS: FUROSEMIDE INJ 40 MG/4 ML VIAL 20 MG IV PUSH ×2 (09:30→17:15)
[2021-02-17] MEDS: ENOXAPARIN 30 MG/0.3 ML SYRINGE SUB-Q (09:30)
[2021-02-17] MEDS: BUDESONIDE/FORMOTEROL (*SP) 160-4.5 MCG 6 GM INH 2 PUFF INHALATION ×2 (10:37→21:40)
--- NOTE | 2021-02-17 10:43 | P.PN_ITS ---
Progress Note: A&P Assessment and Plan (1) Pneumonia due to COVID-19 virus: Code(s): U07.1 - COVID-19; J12.82 - Pneumonia due to coronavirus disease 2019 <Sergeilester ShaniaPATY Mondragon - Last Filed: 02/17/21 10:49> Status: Acute <Pablo AlvaradoPATY - Last Filed: 02/17/21 10:49> Assessment and Plan: * Patient tested positive for Covid on 02/03/2021 * Chest x-ray indicates pneumonia repeat does not indicate worsening * WBC 14.6>13.5>16.5>17.1. today 19.2 could possibly be related to use of dexamethasone that was discontinued yesterday. will closely monitor. Patient trending down * CRP 19.1>>10>22.7 * completed azithromycin and Rocephin * dexamethasone last dose 02/16/21 and remdesivir completed 02/09/2021 * Pneumonia more than likely bacterial * Continue nebulized * patient currently tolerating 4 L nasal cannula * <PATY Carrillo - Last Filed: 02/17/21 10:49> (2) Acute renal failure: Qualifiers: Acute renal failure type: unspecified Qualified Code(s): N17.9 - Acute kidney failure, unspecified <Pablo ShaniaPATY Mondragon - Last Filed: 02/17/21 10:49> Code(s): N17.9 - Acute kidney failure, unspecified <Pablo ShaniaPATY Mondragon - Last Filed: 02/17/21 10:49> Status: Acute <Sergeilester ShaniaPATY Mondragon - Last Filed: 02/17/21 10:49> Assessment and Plan: * Creatinine2.31>1.99 >1.65 >1.38 , today 1.64 baseline appears to be at 1.50. * Possibly secondary to infection * Avoid nephrotoxic agents * Renal dose medication <Pablo ShaniaPATY Mondragon - Last Filed: 02/17/21 10:49> (3) HTN (hypertension): Code(s): I10 - Essential (primary) hypertension <PATY Carrillo - Last Filed: 02/17/21 10:49> Status: Acute <PATY Carrillo - Last Filed: 02/17/21 10:49> Assessment and Plan: * Stable * Continue amlodipine * Vital signs as ordered * Will adjust medication as needed <PATY Carrillo - Last Filed: 02/17/21 10:49> (4) HLD (hyperlipidemia): Code(s): E78.5 - Hyperlipidemia, unspecified <PATY Carrillo - Last Filed: 02/17/21 10:49> Status: Acute <PATY Carrillo - Last Filed: 02/17/21 10:49> Assessment and Plan: * Statins on hold due to elevated liver enzymes <PATY Carrillo - Last Filed: 02/17/21 10:49> (5) BPH (benign prostatic hyperplasia): Code(s): N40.0 - Benign prostatic hyperplasia without lower urinary tract symptoms <PATY Carrillo - Last Filed: 02/17/21 10:49> Status: Acute <PATY Carrillo - Last Filed: 02/17/21 10:49> Assessment and Plan: * Continue Flomax <PATY Carrillo - Last Filed: 02/17/21 10:49> (6) Elevated transaminase level: Code(s): R74.01 - Elevation of levels of liver transaminase levels <PATY Carrillo - Last Filed: 02/17/21 10:49> Status: Acute <PATY Carrillo - Last Filed: 02/17/21 10:49> Assessment and Plan: * AST 565>440>294>2111 02/11/21-61 * [id number]>116>94>87 02/11/21 -123 * Possibly secondary to infection * Trending down * We will continue to monitor * Statins on hold * will repeat tomorrow * Baricitinib stopped <PATY Carrillo - Last Filed: 02/17/21 10:49> (7) Elevated troponin: Code(s): R77.8 - Other specified abnormalities of plasma proteins <PATY Carrillo - Last Filed: 02/17/21 10:49> Status: Acute <PATY Carrillo - Last Filed: 02/17/21 10:49> Assessment and Plan
--- NOTE | 2021-02-17 10:43 | WPDPN ---
Progress Note: A&P Assessment and Plan (1) Pneumonia due to COVID-19 virus: Code(s): U07.1 - COVID-19; J12.82 - Pneumonia due to coronavirus disease 2019 <PATY Carrillo - Last Filed: 02/17/21 10:49> Status: Acute <Pablo ShaniaPATY Mondragon - Last Filed: 02/17/21 10:49> Assessment and Plan: Patient tested positive for Covid on 02/03/2021 Chest x-ray indicates pneumonia repeat does not indicate worsening WBC 14.6>13.5>16.5>17.1. today 19.2 could possibly be related to use of dexamethasone that was discontinued yesterday. will closely monitor. Patient trending down CRP 19.1>>10>22.7 completed azithromycin and Rocephin dexamethasone last dose 02/16/21 and remdesivir completed 02/09/2021 Pneumonia more than likely bacterial Continue nebulized patient currently tolerating 4 L nasal cannula <PATY Carrillo - Last Filed: 02/17/21 10:49> (2) Acute renal failure: Qualifiers: Acute renal failure type: unspecified Qualified Code(s): N17.9 - Acute kidney failure, unspecified <PATY Carrillo - Last Filed: 02/17/21 10:49> Code(s): N17.9 - Acute kidney failure, unspecified <PATY Carrillo - Last Filed: 02/17/21 10:49> Status: Acute <PATY Carrillo - Last Filed: 02/17/21 10:49> Assessment and Plan: Creatinine2.31>1.99 >1.65 >1.38 , today 1.64 baseline appears to be at 1.50. Possibly secondary to infection Avoid nephrotoxic agents Renal dose medication <PATY Carrillo - Last Filed: 02/17/21 10:49> (3) HTN (hypertension): Code(s): I10 - Essential (primary) hypertension <PATY Carrillo - Last Filed: 02/17/21 10:49> Status: Acute <PATY Carrillo Last Filed: 02/17/21 10:49> Assessment and Plan: Stable Continue amlodipine Vital signs as ordered Will adjust medication as needed <Pablo Alvarado PATY - Last Filed: 02/17/21 10:49> (4) HLD (hyperlipidemia): Code(s): E78.5 - Hyperlipidemia, unspecified <Pablo Alvarado PATY - Last Filed: 02/17/21 10:49> Status: Acute <Pablo Alvarado PATY - Last Filed: 02/17/21 10:49> Assessment and Plan: Statins on hold due to elevated liver enzymes <Pablo JaureguiClint Christiano PATY - Last Filed: 02/17/21 10:49> (5) BPH (benign prostatic hyperplasia): Code(s): N40.0 - Benign prostatic hyperplasia without lower urinary tract symptoms <Pablo JaureguiClint Alvarado PATY - Last Filed: 02/17/21 10:49> Status: Acute <Pablo Alvarado PATY - Last Filed: 02/17/21 10:49> Assessment and Plan: Continue Flomax <Pablo Alvarado PATY - Last Filed: 02/17/21 10:49> (6) Elevated transaminase level: Code(s): R74.01 - Elevation of levels of liver transaminase levels <Pablo Alvarado PATY - Last Filed: 02/17/21 10:49> Status: Acute <Pablo JaureguiClint Christiano PATY - Last Filed: 02/17/21 10:49> Assessment and Plan: AST 565>440>294>2111 02/11/21-61 [id number]>116>94>87 02/11/21 -123 Possibly secondary to infection Trending down We will continue to monitor Statins on hold will repeat tomorrow Baricitinib stopped <Sergeilester ShaniaClint Alvarado GUN TESTEREvelinJose - Last Filed: 02/17/21 10:49> (7) Elevated troponin: Code(s): R77.8 - Other specified abnormalities of plasma proteins <Sergeilester ShaniaClint Alvarado YEFRIJose - Last Filed: 02/17/21 10:49> Status: Acute <PATY Carrillo - Last Filed: 02/17/21 10:49> Assessment and Plan: resolved Troponin 73.1> 64.9> 52.3 Not believed to be cardiac related EKG sinus rhythm with a heart rate in the 70s Will treat underlying cause <PATY Carrillo - Last Filed: 02/17/21 10:49> (8) UTI (urinary tract infection): Code(s): N39.0 - Urinary tract infection, site not specified <PATY Carrillo - Last Filed: 02/17/21 10:
[2021-02-17] MEDS: TAMSULOSIN HCL 0.4 MG CAPSULE PO (21:25)
[2021-02-17] MEDS: traZODone HCL 25 MG TABLET PO (21:25)
[2021-02-17] MEDS: ASPIRIN 81 MG CHEWABLE TABLET PO (21:25)
[2021-02-17] MEDS: amLODIPine BESYLATE 2.5 MG TABLET PO (21:26)
[2021-02-18 03:30] VITALS: BP 115/52; PULSE 63; RESP 16; TEMP 36.4; O2SAT 98
[2021-02-18 05:26] VITALS: O2SAT 98
[2021-02-18 05:28] LABS: Hematocrit 33.5 % (37.0-46.0); Hemoglobin 10.9 g/dL (12.4-15.3); Mean Corpuscular HGB Conc 32.5 g/dL (32.0-36.0); Mean Corpuscular Hemoglobin 34.1 pg (27.0-31.0); Mean Corpuscular Volume 104.7 fL (78.0-102.0); Mean Platelet Volume 9.7 fl (8.7-11.0); Platelet Count Result 263 K/mm3 (150-420); Red Cell Distribution Width 13.1 % (11.6-14.4); White Blood Count 16.2 K/mm3 (4.8-10.8)
[2021-02-18 05:34] LABS: Anion Gap 7 mmol/L (8-16); Blood Urea Nitrogen 46 mg/dL (7-18); Calcium 8.4 mg/dL (8.5-10.1); Carbon Dioxide 33 mmol/L (21-32); Chloride 97 mmol/L (98-108); Estimated CRCL calculation 25 ml/min; Estimated Glomerular Filt Rate 39; Glucose 125 mg/dL (70-99); Osmolality Calculated 296 mOsm/kg (285-295); Potassium 4.1 mmol/L (3.5-5.1); Sodium 137 mmol/L (136-145)
[2021-02-18 08:00] VITALS: BP 114/58; PULSE 68; RESP 14; RESP 16; TEMP 36.8; O2SAT 98
[2021-02-18] MEDS: FUROSEMIDE INJ 40 MG/4 ML VIAL 20 MG IV PUSH ×2 (09:05→16:53)
[2021-02-18] MEDS: ENOXAPARIN 30 MG/0.3 ML SYRINGE SUB-Q (09:35)
[2021-02-18] MEDS: CITALOPRAM HYDROBROMIDE 10 MG TABLET PO (09:35)
--- NOTE | 2021-02-18 09:44 | P.PN_ITS ---
Progress Note: A&P Assessment and Plan (1) Pneumonia due to COVID-19 virus: Code(s): U07.1 - COVID-19; J12.82 - Pneumonia due to coronavirus disease 2019 <Sergeilester ShaniaPATY Mondragon - Last Filed: 02/18/21 09:49> Status: Acute <Pablo AlvaradoPATY - Last Filed: 02/18/21 09:49> Assessment and Plan: * Patient tested positive for Covid on 02/03/2021 * Chest x-ray indicates pneumonia repeat does not indicate worsening * WBC 14.6>13.5>16.5>17.1. today 16.2 could possibly be related to use of dexamethasone that was discontinued yesterday. will closely monitor. Patient trending down * CRP 19.1>>10>22.7 * completed azithromycin and Rocephin * dexamethasone last dose 02/16/21 and remdesivir completed 02/09/2021 * Pneumonia more than likely bacterial * Continue nebulized * patient currently tolerating 4 L nasal cannula * <PATY Carrillo - Last Filed: 02/18/21 09:49> (2) Acute renal failure: Qualifiers: Acute renal failure type: unspecified Qualified Code(s): N17.9 - Acute kidney failure, unspecified <Pablo ShaniaPATY Mondragon - Last Filed: 02/18/21 09:49> Code(s): N17.9 - Acute kidney failure, unspecified <PATY Carrillo - Last Filed: 02/18/21 09:49> Status: Acute <Pablo ShaniaPATY Mondragon - Last Filed: 02/18/21 09:49> Assessment and Plan: * Creatinine2.31>1.99 >1.65 >1.38 , today 1.67 baseline appears to be at 1.50. * Possibly secondary to infection * Avoid nephrotoxic agents * Renal dose medication <PATY Carrillo - Last Filed: 02/18/21 09:49> (3) HTN (hypertension): Code(s): I10 - Essential (primary) hypertension <PATY Carrillo - Last Filed: 02/18/21 09:49> Status: Acute <PATY Carrillo - Last Filed: 02/18/21 09:49> Assessment and Plan: * Stable * Continue amlodipine * Vital signs as ordered * Will adjust medication as needed <PATY Carrillo - Last Filed: 02/18/21 09:49> (4) HLD (hyperlipidemia): Code(s): E78.5 - Hyperlipidemia, unspecified <PATY Carrillo - Last Filed: 02/18/21 09:49> Status: Acute <PATY Carrillo - Last Filed: 02/18/21 09:49> Assessment and Plan: * Statins on hold due to elevated liver enzymes <PATY Carrillo - Last Filed: 02/18/21 09:49> (5) BPH (benign prostatic hyperplasia): Code(s): N40.0 - Benign prostatic hyperplasia without lower urinary tract symptoms <PATY Carrillo - Last Filed: 02/18/21 09:49> Status: Acute <PATY Carrillo - Last Filed: 02/18/21 09:49> Assessment and Plan: * Continue Flomax <PATY Carrillo - Last Filed: 02/18/21 09:49> (6) Elevated transaminase level: Code(s): R74.01 - Elevation of levels of liver transaminase levels <PATY Carrillo - Last Filed: 02/18/21 09:49> Status: Acute <PATY Carrillo - Last Filed: 02/18/21 09:49> Assessment and Plan: * AST 565>440>294>2111 02/11/21-61 * [id number]>116>94>87 02/11/21 -123 * Possibly secondary to infection * Trending down * We will continue to monitor * Statins on hold * will repeat tomorrow * Baricitinib stopped <Pablo Alvarado PTAY - Last Filed: 02/18/21 09:49> (7) Elevated troponin: Code(s): R77.8 - Other specified abnormalities of plasma proteins <PATY Carrillo - Last Filed: 02/18/21 09:49> Status: Acute <PATY Carrillo - Last Filed: 02/18/21 09:49> Assessment and Plan
--- NOTE | 2021-02-18 09:44 | WPDPN ---
Progress Note: A&P Assessment and Plan (1) Pneumonia due to COVID-19 virus: Code(s): U07.1 - COVID-19; J12.82 - Pneumonia due to coronavirus disease 2019 <PATY Carrillo - Last Filed: 02/18/21 09:49> Status: Acute <PATY Carrillo - Last Filed: 02/18/21 09:49> Assessment and Plan: Patient tested positive for Covid on 02/03/2021 Chest x-ray indicates pneumonia repeat does not indicate worsening WBC 14.6>13.5>16.5>17.1. today 16.2 could possibly be related to use of dexamethasone that was discontinued yesterday. will closely monitor. Patient trending down CRP 19.1>>10>22.7 completed azithromycin and Rocephin dexamethasone last dose 02/16/21 and remdesivir completed 02/09/2021 Pneumonia more than likely bacterial Continue nebulized patient currently tolerating 4 L nasal cannula <PATY Carrillo - Last Filed: 02/18/21 09:49> (2) Acute renal failure: Qualifiers: Acute renal failure type: unspecified Qualified Code(s): N17.9 - Acute kidney failure, unspecified <PATY Carrillo - Last Filed: 02/18/21 09:49> Code(s): N17.9 - Acute kidney failure, unspecified <PATY Carrillo - Last Filed: 02/18/21 09:49> Status: Acute <PATY Carrillo - Last Filed: 02/18/21 09:49> Assessment and Plan: Creatinine2.31>1.99 >1.65 >1.38 , today 1.67 baseline appears to be at 1.50. Possibly secondary to infection Avoid nephrotoxic agents Renal dose medication <PATY Carrillo - Last Filed: 02/18/21 09:49> (3) HTN (hypertension): Code(s): I10 - Essential (primary) hypertension <PATY Carrillo - Last Filed: 02/18/21 09:49> Status: Acute <PATY Carrillo Last Filed: 02/18/21 09:49> Assessment and Plan: Stable Continue amlodipine Vital signs as ordered Will adjust medication as needed <SergeiRUTH BlancoEvelinJose - Last Filed: 02/18/21 09:49> (4) HLD (hyperlipidemia): Code(s): E78.5 - Hyperlipidemia, unspecified <SergeiRUTH BlancoEvelinJose - Last Filed: 02/18/21 09:49> Status: Acute <Pablo JaureguiCYNDI MondragonRolanJose - Last Filed: 02/18/21 09:49> Assessment and Plan: Statins on hold due to elevated liver enzymes <RUTH CarrilloEvelinJose - Last Filed: 02/18/21 09:49> (5) BPH (benign prostatic hyperplasia): Code(s): N40.0 - Benign prostatic hyperplasia without lower urinary tract symptoms <RUTH CarrilloEvelinJose - Last Filed: 02/18/21 09:49> Status: Acute <Sergeilester ShaniaRUTH MondragonEvelinJose - Last Filed: 02/18/21 09:49> Assessment and Plan: Continue Flomax <Pablo JaureguiClint Alvarado PATY - Last Filed: 02/18/21 09:49> (6) Elevated transaminase level: Code(s): R74.01 - Elevation of levels of liver transaminase levels <SergeiCYNDI BlancoRolanJose - Last Filed: 02/18/21 09:49> Status: Acute <RUTH CarrilloEvelinJose - Last Filed: 02/18/21 09:49> Assessment and Plan: AST 565>440>294>2111 02/11/21-61 [id number]>116>94>87 02/11/21 -123 Possibly secondary to infection Trending down We will continue to monitor Statins on hold will repeat tomorrow Baricitinib stopped <PATY Carrillo - Last Filed: 02/18/21 09:49> (7) Elevated troponin: Code(s): R77.8 - Other specified abnormalities of plasma proteins <PATY Carrillo - Last Filed: 02/18/21 09:49> Status: Acute <PATY Carrillo - Last Filed: 02/18/21 09:49> Assessment and Plan: resolved Troponin 73.1> 64.9> 52.3 Not believed to be cardiac related EKG sinus rhythm with a heart rate in the 70s Will treat underlying cause <PATY Carrillo - Last Filed: 02/18/21 09:49> (8) UTI (urinary tract infection): Code(s): N39.0 - Urinary tract infection, site not specified <PATY Carrillo - Last Filed: 02/18/21 09:
[2021-02-18] MEDS: BUDESONIDE/FORMOTEROL (*SP) 160-4.5 MCG 6 GM INH 2 PUFF INHALATION ×2 (11:27→20:44)
[2021-02-18] MEDS: ALBUTEROL SULFATE (*SP) INHALER 2 PUFF INHALATION ×4 (11:28→20:44)
[2021-02-18] MEDS: SACCHAROMYCES BOULARDII 250 MG CAPSULE PO ×2 (11:30→16:53)
[2021-02-18 12:00] VITALS: BP 118/60; PULSE 68; RESP 18; TEMP 36.6; O2SAT 98
[2021-02-18 16:00] VITALS: PULSE 74; RESP 20; TEMP 36.9; O2SAT 97
--- NOTE | 2021-02-18 17:43 | PC.NURSE ---
Patient Raheel Leblanc 85 y/o male admission with Pneumonia Covid Acute Renal failure and elevated Troponin. lab this morning WBC 16.2 Hbg 10.9 Hct 33.5 Na 137. Plans of discharge on Friday02/19/21, with home health PT/OT, possible need of walker at home. Evaluation with R.T. from PT tomorrow 6 min. walk and O2 status for use of O2 in home if needed. Raheel has been up in chair with all 3 meals intake 90% all meals today, Walk today with PT and O2 sat were 88%. Raheel presently assisted back to bed HOB slightly elevated Call light in reach upper side rails up bed in low lock position, No complaints, resting no distress noted O2 remains on @3Lpnc.
[2021-02-18 20:00] VITALS: BP 123/50; PULSE 70; RESP 20; TEMP 36.6; O2SAT 97
[2021-02-18] MEDS: ASPIRIN 81 MG CHEWABLE TABLET PO (20:31)
[2021-02-18] MEDS: TAMSULOSIN HCL 0.4 MG CAPSULE PO (20:31)
[2021-02-18] MEDS: amLODIPine BESYLATE 2.5 MG TABLET PO (20:44)
[2021-02-18] MEDS: traZODone HCL 25 MG TABLET PO (20:45)
[2021-02-19] VITALS (9 sets, daily range): BP systolic 112–118; BP diastolic 55–58; PULSE 62–124; RESP 14–18; TEMP 36.5–36.7; O2SAT 84–98
[2021-02-19 06:11] LABS: Hematocrit 32.5 % (37.0-46.0); Hemoglobin 10.6 g/dL (12.4-15.3); Mean Corpuscular HGB Conc 32.6 g/dL (32.0-36.0); Mean Corpuscular Hemoglobin 34.5 pg (27.0-31.0); Mean Corpuscular Volume 105.9 fL (78.0-102.0); Mean Platelet Volume 9.7 fl (8.7-11.0); Platelet Count Result 246 K/mm3 (150-420); Red Blood Count 3.07 M/mm3 (4.70-6.10); Red Cell Distribution Width 13.2 % (11.6-14.4); White Blood Count 14.3 K/mm3 (4.8-10.8)
[2021-02-19 06:28] LABS: Alanine Aminotransferase 102 U/L (16-63); Albumin Level 2.3 g/dL (3.4-5.0); Alkaline Phosphatase 66 U/L (46-116); Anion Gap 4 mmol/L (8-16); Aspartate Amino Transferase 47 U/L (15-37); Bilirubin,Total 0.6 mg/dL (0.00-1.00); Blood Urea Nitrogen 41 mg/dL (7-18); Calcium 8.5 mg/dL (8.5-10.1); Carbon Dioxide 36 mmol/L (21-32); Chloride 98 mmol/L (98-108); Estimated CRCL calculation 26 ml/min; Estimated Glomerular Filt Rate 40; Glucose 106 mg/dL (70-99); Magnesium 2.1 mg/dL (1.8-2.4); Osmolality Calculated 296 mOsm/kg (285-295); Potassium 4.1 mmol/L (3.5-5.1); Sodium 138 mmol/L (136-145); Total Protein 6.6 g/dL (6.4-8.2)
[2021-02-19] MEDS: ENOXAPARIN 30 MG/0.3 ML SYRINGE SUB-Q (08:19)
[2021-02-19] MEDS: FUROSEMIDE INJ 40 MG/4 ML VIAL 20 MG IV PUSH (08:19)
[2021-02-19] MEDS: SACCHAROMYCES BOULARDII 250 MG CAPSULE PO (08:19)
[2021-02-19] MEDS: CITALOPRAM HYDROBROMIDE 10 MG TABLET PO (08:19)
[2021-02-19] MEDS: ALBUTEROL SULFATE (*SP) INHALER 2 PUFF INHALATION ×2 (08:21→14:37)
[2021-02-19] MEDS: BUDESONIDE/FORMOTEROL (*SP) 160-4.5 MCG 6 GM INH 2 PUFF INHALATION (08:24)
--- NOTE | 2021-02-19 08:49 | HOMEO2EVAL ---
Evaluation was performed at [facility] Home Oxygen Evaluation RC: Home Oxygen (O2) Evaluation Start: 02/19/21 07:15 Freq: ONCE Status: Active Protocol: RPE Activity Type Activity Date Activity User E-Sign Co-Sign Detail Recorded Client Recorded Date Recorded By Document 02/19/21 08:26 SJB [id number] 02/19/21 08:49 SJB Document 02/19/21 08:27 SJB [id number] 02/19/21 08:49 SJB Document 02/19/21 08:29 SJB [id number] 02/19/21 08:49 SJB Document 02/19/21 08:32 SJB [id number] 02/19/21 08:49 SJB Document 02/19/21 08:34 SJB [id number] 02/19/21 08:49 SJB Document 02/19/21 08:40 SJB [id number] 02/19/21 08:49 SJB 02/19/21 02/19/21 02/19/21 08:26 08:27 08:29 Home O2 Evaluation Test Phase Resting Resting Resting Oxygen Delivery Room Air Nasal Cannula Nasal Cannula Oxygen Flow Rate (L/min) 1 2 Pulse Oximetry (90-100 %) 86 L 84 L 88 L Pulse Rate (60-100 beats/min) 98 96 103 H Activity Tolerance Rating of Perceived Dyspnea (PD) +2 Mild, Some +2 Mild, Some Difficulty, Difficulty, Noticeable to Noticeable to the Observer the Observer Rate of Perceived Exertion (PE) 9 Very light Ambulation Distance (feet) Home Oxygen Evaluation Comments Will start 02 Will increase Will increase at 1 lpm at 02 to 2 lpm to 3 lpm rest. Treatment Charges O2 Evaluation - Inpatient 02/19/21 02/19/21 02/19/21 08:32 08:34 08:40 Home O2 Evaluation Test Phase Resting Exercise Exercise Oxygen Delivery Nasal Cannula Nasal Cannula Nasal Cannula Oxygen Flow Rate (L/min) 3 3 4 Pulse Oximetry (90-100 %) 91 86 L 89 L Pulse Rate (60-100 beats/min) 110 H 95 124 H Activity Tolerance Good Good Rating of Perceived Dyspnea (PD) +2 Mild, Some +2 Mild, Some +2 Mild, Some Difficulty, Difficulty, Difficulty, Noticeable to Noticeable to Noticeable to the Observer the Observer the Observer Rate of Perceived Exertion (PE) 12 Ambulation Distance (feet) 32 215 Home Oxygen Evaluation Comments Will begin walk After 32 ft Pt finished 215 . PLB Sp02 was 86%, ft walk on 4 encouraged. oxygen lpm, pushing increased to 4 wheelchair. lpm. Sp02s remained between 89-90% on the 4 lpm, hr 122-124. Pt denied any SOB or leg fatigue . Treatment Charges
--- NOTE | 2021-02-19 09:20 | P.DS_ITS ---
DS: Admitting Diagnosis Discharge Date 02/19/2021 Admitting Diagnosis Covid pneumonia DS: Discharge Diagnosis Discharge Diagnosis (1) Pneumonia due to COVID-19 virus: Code(s): U07.1 - COVID-19; J12.82 - Pneumonia due to coronavirus disease 2019 Status: Acute Assessment and Plan: * Patient tested positive for Covid on 02/03/2021 * Chest x-ray indicates pneumonia repeat does not indicate worsening * WBC 14.6>13.5>16.5>17.1 today 14.3 could possibly be related to use of dexamethasone * CRP 19.1>>10>22.7 * completed azithromycin and Rocephin * dexamethasone last dose 02/16/21 and remdesivir completed 02/09/2021 * Pneumonia more than likely bacterial * patient currently tolerating 3 L nasal cannula he will require home oxygen continuous (2) Acute renal failure: Qualifiers: Acute renal failure type: unspecified Qualified Code(s): N17.9 - Acute kidney failure, unspecified Code(s): N17.9 - Acute kidney failure, unspecified Status: Acute Assessment and Plan: * Creatinine2.31>1.99 >1.65 >1.38 , today 1.66 baseline appears to be at 1.50. * Possibly secondary to infection (3) HTN (hypertension): Code(s): I10 - Essential (primary) hypertension Status: Acute Assessment and Plan: * Stable * Continue amlodipine * (4) HLD (hyperlipidemia): Code(s): E78.5 - Hyperlipidemia, unspecified Status: Acute Assessment and Plan: * Resume statins (5) BPH (benign prostatic hyperplasia): Code(s): N40.0 - Benign prostatic hyperplasia without lower urinary tract symptoms Status: Acute Assessment and Plan: * Continue Flomax (6) Elevated transaminase level: Code(s): R74.01 - Elevation of levels of liver transaminase levels Status: Acute Assessment and Plan: * AST 565>440>294>2111 02/11/21-61 * YZZ989>116>94>87 02/11/21 -123 * Possibly secondary to infection * Repeat levels in 1 week with results going to primary care physician (7) Elevated troponin: Code(s): R77.8 - Other specified abnormalities of plasma proteins Status: Acute Assessment and Plan: * resolved * Troponin 73.1> 64.9> 52.3 * Not believed to be cardiac related * EKG sinus rhythm with a heart rate in the 70s * Will treat underlying cause (8) UTI (urinary tract infection): Code(s): N39.0 - Urinary tract infection, site not specified Status: Acute Assessment and Plan: * Patient /treated for UTI on 02/01/2021 * Bactrim/ discontinued no growth in urine culture (9) Elevated white blood cell count, unspecified: Code(s): D72.829 - Elevated white blood cell count, unspecified Status: Acute Assessment and Plan: * possibly secondary with the use steroids * etiology unknown,possibly secondary with the use steroids * repeat chest x-ray does not indicate worsening pneumonia * previous provider spoke with Dr. Anton supervisor labor gang oncologist concerning patient elevated WBC, patient will need to follow-up with Dr. Anton as an outpatient (10) CHF (congestive heart failure): Code(s): I50.9 - Heart failure, unspecified Status: Acute Assessment and Plan: * echo indicates: 1. Complete two-dimensional, color flow and Doppler transthoracic echocardiogram is performed. 2. Left ventricular chamber dimension is normal. 3. Left ventricular systolic function is normal, estimated at 65-70%. 4. There is mildly increased left ventricular wa
--- NOTE | 2021-02-19 09:20 | PM.DS ---
DS: Admitting Diagnosis Discharge Date 02/19/2021 Admitting Diagnosis Covid pneumonia DS: Discharge Diagnosis Discharge Diagnosis (1) Pneumonia due to COVID-19 virus: Code(s): U07.1 - COVID-19; J12.82 - Pneumonia due to coronavirus disease 2019 Status: Acute Assessment and Plan: Patient tested positive for Covid on 02/03/2021 Chest x-ray indicates pneumonia repeat does not indicate worsening WBC 14.6>13.5>16.5>17.1 today 14.3 could possibly be related to use of dexamethasone CRP 19.1>>10>22.7 completed azithromycin and Rocephin dexamethasone last dose 02/16/21 and remdesivir completed 02/09/2021 Pneumonia more than likely bacterial patient currently tolerating 3 L nasal cannula he will require home oxygen continuous (2) Acute renal failure: Qualifiers: Acute renal failure type: unspecified Qualified Code(s): N17.9 - Acute kidney failure, unspecified Code(s): N17.9 - Acute kidney failure, unspecified Status: Acute Assessment and Plan: Creatinine2.31>1.99 >1.65 >1.38 , today 1.66 baseline appears to be at 1.50. Possibly secondary to infection (3) HTN (hypertension): Code(s): I10 - Essential (primary) hypertension Status: Acute Assessment and Plan: Stable Continue amlodipine (4) HLD (hyperlipidemia): Code(s): E78.5 - Hyperlipidemia, unspecified Status: Acute Assessment and Plan: Resume statins (5) BPH (benign prostatic hyperplasia): Code(s): N40.0 - Benign prostatic hyperplasia without lower urinary tract symptoms Status: Acute Assessment and Plan: Continue Flomax (6) Elevated transaminase level: Code(s): R74.01 - Elevation of levels of liver transaminase levels Status: Acute Assessment and Plan: AST 565>440>294>2111 02/11/21-61 PXP124>116>94>87 02/11/21 -123 Possibly secondary to infection Repeat levels in 1 week with results going to primary care physician (7) Elevated troponin: Code(s): R77.8 - Other specified abnormalities of plasma proteins Status: Acute Assessment and Plan: resolved Troponin 73.1> 64.9> 52.3 Not believed to be cardiac related EKG sinus rhythm with a heart rate in the 70s Will treat underlying cause (8) UTI (urinary tract infection): Code(s): N39.0 - Urinary tract infection, site not specified Status: Acute Assessment and Plan: Patient /treated for UTI on 02/01/2021 Bactrim/ discontinued no growth in urine culture (9) Elevated white blood cell count, unspecified: Code(s): D72.829 - Elevated white blood cell count, unspecified Status: Acute Assessment and Plan: possibly secondary with the use steroids etiology unknown,possibly secondary with the use steroids repeat chest x-ray does not indicate worsening pneumonia previous provider spoke with Dr. Anton human resource manager oncologist concerning patient elevated WBC, patient will need to follow-up with Dr. Anton as an outpatient (10) CHF (congestive heart failure): Code(s): I50.9 - Heart failure, unspecified Status: Acute Assessment and Plan: echo indicates: 1. Complete two-dimensional, color flow and Doppler transthoracic echocardiogram is performed. 2. Left ventricular chamber dimension is normal. 3. Left ventricular systolic function is normal, estimated at 65-70%. 4. There is mildly increased left ventricular wall thickness. 5. The left ventricular diastolic function is grade I diastolic dysfunction. 6. E/e' 7 is not elevated. 7. There is mild aortic valve regurgitation. 8. No pulmonary hypertension, estimated pulmonary arterial systolic pressure is 29 mmHg. no intervention needed at this time DS: Summary Hospital Course Reason for hospitalization: Covid pneumonia Hospital Course: this is a 85-year-old patient who presented to ED with complaints of multiple
--- NOTE | 2021-02-19 11:04 | PCOTNOTE ---
On 02/19/21, the student, [Isidra Davila ], provided care and completed [facility] documentation on this patient. I have reviewed the student's documentation and agree with the findings. MS
--- NOTE | 2021-02-19 16:40 | PC.NURSE ---
patient discharged home transported by daughter via personal vehicle. All personal belongings packed up and given to daughter and placed in vehicle. Patient was escorted by staff via WC to main entrance and assisted into vehicle for transport home. Discharge instructions given to patient prior to discharge and then to daughter after patient loaded into vehicle. Oxygen connected and operational.
--- NOTE | 2021-02-22 13:39 | PC.NURSE ---
Pt states he received and understood his discharge instructions. He has no other comments.
== END 2021-02-19 16:40 | disposition home health service (06) | DRG 177 ==
LOC: CHSED 20:36 → CHS2ND 20:42
PROVIDERS: Emergency Medicine; Nurse Practitioner; Nurse Practitioner Family; Admitting Provider Emergency Medicine; Emergency Provider Emergency Medicine; PCP Internal Medicine; Visit Provider Emergency Medicine
DX: U07.1 COVID-19 (principal); J18.9 Pneumonia, unspecified organism; J12.82 Pneumonia due to coronavirus disease 2019; I12.9 Hypertensive chronic kidney disease with stage 1 through stage 4 chronic kidney disease, or unspecified chronic kidney disease; N18.9 Chronic kidney disease, unspecified; N17.9 Acute kidney failure, unspecified; N39.0 Urinary tract infection, site not specified; I10 Essential (primary) hypertension; F32.9 Major depressive disorder, single episode, unspecified; I50.9 Heart failure, unspecified; I35.1 Nonrheumatic aortic (valve) insufficiency; D72.829 Elevated white blood cell count, unspecified; N40.0 Benign prostatic hyperplasia without lower urinary tract symptoms; E78.5 Hyperlipidemia, unspecified; R29.6 Repeated falls
CPT/HCPCS: 36415; 36600; 71045; 71250; 71275; 80048; 80053; 81001; 82565; 82805; 82948; 83605; 83735; 83880; 84460; 84484; 85025; 85027; 85610; 85730; 86140; 87040; 87324; 87426; 93005; 93306; 94618; 94668; 96360; 97110; 97161; 97165; 97530; 97535; 99285; A9270; C9803; J0456; J0696; J1100; J1650; J1940; J2060; J2543; J7030; Q9967

== ENCOUNTER 2021-02-26 12:49 | Outpatient (NON) | payer MEDICARE, SELFPAY ==
[2021-02-26 13:26] LABS: Alanine Aminotransferase 48 U/L (16-63); Albumin Level 2.6 g/dL (3.4-5.0); Alkaline Phosphatase 64 U/L (46-116); Anion Gap 8 mmol/L (8-16); Aspartate Amino Transferase 27 U/L (15-37); Bilirubin,Total 0.3 mg/dL (0.00-1.00); Blood Urea Nitrogen 20 mg/dL (7-18); Calcium 8.2 mg/dL (8.5-10.1); Carbon Dioxide 29 mmol/L (21-32); Chloride 103 mmol/L (98-108); Estimated Glomerular Filt Rate 50; Glucose 73 mg/dL (70-99); Osmolality Calculated 291 mOsm/kg (285-295); Potassium 4.9 mmol/L (3.5-5.1); Sodium 140 mmol/L (136-145); Total Protein 6.2 g/dL (6.4-8.2)
== END 2021-02-26 12:50 | disposition home or self-care (01) ==
LOC: CHSLAB 12:56
PROVIDERS: PCP Internal Medicine; Visit Provider Nurse Practitioner
DX: R74.01 Elevation of levels of liver transaminase levels (principal); D72.829 Elevated white blood cell count, unspecified
CPT/HCPCS: 36415; 80053

== ENCOUNTER 2021-07-17 07:34 | Outpatient (CLI) | payer MEDICARE, SELFPAY ==
[2021-07-17 07:48] LABS: Basophils Absolute Auto 0.15 K/mm3 (0.00-0.10); Basophils Percent Auto 1.8 % (0.0-1.0); Eosinophils Absolute Auto 0.44 K/mm3 (0.02-0.50); Eosinophils Percent Auto 5.3 % (1.0-6.0); Hematocrit 42.8 % (37.0-46.0); Hemoglobin 14.1 g/dL (12.4-15.3); Immature Granulocyte Absolute 0.08 K/mm3 (0.00-0.00); Lymphocytes Absolute Auto 1.44 K/mm3 (1.10-4.50); Lymphocytes Percent Auto 17.3 % (18.0-42.0); Mean Corpuscular HGB Conc 32.9 g/dL (32.0-36.0); Mean Corpuscular Hemoglobin 33.9 pg (27.0-31.0); Mean Corpuscular Volume 102.9 fL (78.0-102.0); Monocytes Absolute Auto 1.02 K/mm3 (0.10-0.90); Monocytes Percent Auto 12.2 % (2.0-11.0); Neutrophils Absolute Auto 5.2 K/mm3 (1.7-7.2); Neutrophils Percent Auto 62.4 % (50.0-70.0); Platelet Count Result 203 K/mm3 (150-420); Red Blood Count 4.16 M/mm3 (4.70-6.10); Red Cell Distribution Width 12.6 % (11.6-14.4); White Blood Count 8.3 K/mm3 (4.8-10.8)
[2021-07-17 07:49] LABS: Add Urine Microscopic? YES; Appearance Urine Clear (Clear); Bilirubin Urine Negative (Negative); Blood Urine 3+ (Negative); Color Urine Light Yellow (Yellow); Glucose Urine UA Negative (Negative); Ketones Urine Negative (Negative); Leukocyte Esterase Ur Negative (Negative); Nitrate Urine Negative (Negative); Protein Urine Negative (Negative); Specific Grav Ur 1.025 (1.010-1.020); Urobilinogen Urine 0.2 mg/dL (0.2-1.0)
[2021-07-17 07:54] LABS: Bacteria Urine Trace /hpf; RBC Urine 21-50 /hpf (0-2); WBC Urine None seen /hpf (0-3)
[2021-07-17 08:10] LABS: Hemoglobin A1C 5.9 % (<5.7)
[2021-07-17 08:46] LABS: Alanine Aminotransferase 25 U/L (16-63); Albumin Level 3.9 g/dL (3.4-5.0); Alkaline Phosphatase 67 U/L (46-116); Anion Gap 10 mmol/L (8-16); Aspartate Amino Transferase 28 U/L (15-37); Bilirubin,Total 0.6 mg/dL (0.00-1.00); Blood Urea Nitrogen 21 mg/dL (7-18); Carbon Dioxide 28 mmol/L (21-32); Chloride 103 mmol/L (98-108); Cholesterol 203 mg/dL (0-200); Estimated Glomerular Filt Rate 41; Glucose 106 mg/dL (70-99); HDL Direct 47 mg/dL (40-60); LDL Cholesterol Calculated 119 mg/dL (<130); Osmolality Calculated 295 mOsm/kg (285-295); Potassium 4.4 mmol/L (3.5-5.1); Sodium 141 mmol/L (136-145); Total Protein 8.1 g/dL (6.4-8.2); Triglycerides 186 mg/dL (0-150)
== END 2021-07-17 07:35 | disposition home or self-care (01) ==
LOC: CHSLAB 07:36
PROVIDERS: PCP Internal Medicine; Visit Provider Internal Medicine
DX: R73.01 Impaired fasting glucose (principal); I12.9 Hypertensive chronic kidney disease with stage 1 through stage 4 chronic kidney disease, or unspecified chronic kidney disease; N18.2 Chronic kidney disease, stage 2 (mild); E78.2 Mixed hyperlipidemia; D64.9 Anemia, unspecified
CPT/HCPCS: 36415; 80053; 80061; 81001; 83036; 85025

== ENCOUNTER 2022-01-03 07:24 | Outpatient (CLI) | payer MEDICARE, SELFPAY ==
[2022-01-03 07:38] LABS: Appearance Urine Clear (Clear); Basophils Absolute Auto 0.14 K/mm3 (0.00-0.10); Basophils Percent Auto 1.6 % (0.0-1.0); Bilirubin Urine Negative (Negative); Color Urine Light Yellow (Yellow); Eosinophils Absolute Auto 0.54 K/mm3 (0.02-0.50); Eosinophils Percent Auto 6.3 % (1.0-6.0); Glucose Urine UA Negative (Negative); Hematocrit 39.4 % (37.0-46.0); Hemoglobin 12.9 g/dL (12.4-15.3); Immature Granulocyte Absolute 0.12 K/mm3 (0.00-0.00); Immature Granulocyte Percent A 1.4 % (0.0-0.0); Ketones Urine Negative (Negative); Leukocyte Esterase Ur 1+ (Negative); Lymphocytes Absolute Auto 1.61 K/mm3 (1.10-4.50); Lymphocytes Percent Auto 18.7 % (18.0-42.0); Mean Corpuscular HGB Conc 32.7 g/dL (32.0-36.0); Mean Corpuscular Hemoglobin 34.3 pg (27.0-31.0); Mean Corpuscular Volume 104.8 fL (78.0-102.0); Mean Platelet Volume 9.9 fl (8.7-11.0); Monocytes Absolute Auto 0.97 K/mm3 (0.10-0.90); Monocytes Percent Auto 11.3 % (2.0-11.0); Neutrophils Absolute Auto 5.2 K/mm3 (1.7-7.2); Neutrophils Percent Auto 60.7 % (50.0-70.0); Nitrate Urine Negative (Negative); Platelet Count Result 159 K/mm3 (150-420); Protein Urine Negative (Negative); Red Blood Count 3.76 M/mm3 (4.70-6.10); Urobilinogen Urine 0.2 mg/dL (0.2-1.0); White Blood Count 8.6 K/mm3 (4.8-10.8)
[2022-01-03 07:41] LABS: Add Urine Microscopic? YES; Blood Urine Trace-lysed (Negative)
[2022-01-03 07:43] LABS: RBC Urine 0-2 /hpf (0-2)
[2022-01-03 07:44] LABS: Bacteria Urine Trace /hpf
[2022-01-03 07:46] LABS: Hemoglobin A1C 6.3 % (<5.7)
[2022-01-03 08:27] LABS: Alanine Aminotransferase 39 U/L (16-63); Albumin Level 3.9 g/dL (3.4-5.0); Alkaline Phosphatase 73 U/L (46-116); Anion Gap 9 mmol/L (8-16); Aspartate Amino Transferase 30 U/L (15-37); Bilirubin,Total 0.5 mg/dL (0.00-1.00); Blood Urea Nitrogen 22 mg/dL (7-18); Calcium 8.7 mg/dL (8.5-10.1); Carbon Dioxide 27 mmol/L (21-32); Chloride 103 mmol/L (98-108); Cholesterol 197 mg/dL (0-200); Creatine Kinase 182 U/L (39-308); Estimated Glomerular Filt Rate 34; Glucose 115 mg/dL (70-99); HDL Direct 45 mg/dL (40-60); LDL Cholesterol Calculated 120 mg/dL (<130); Osmolality Calculated 292 mOsm/kg (285-295); Potassium 4.3 mmol/L (3.5-5.1); Sodium 139 mmol/L (136-145); Total Protein 7.5 g/dL (6.4-8.2); Triglycerides 162 mg/dL (0-150)
== END 2022-01-03 07:25 | disposition home or self-care (01) ==
LOC: CHSLAB 07:27
PROVIDERS: PCP Internal Medicine; Visit Provider Internal Medicine
DX: E78.2 Mixed hyperlipidemia (principal); I12.9 Hypertensive chronic kidney disease with stage 1 through stage 4 chronic kidney disease, or unspecified chronic kidney disease; N18.2 Chronic kidney disease, stage 2 (mild); R73.01 Impaired fasting glucose
CPT/HCPCS: 36415; 80053; 80061; 81001; 82550; 83036; 85025

== ENCOUNTER 2022-01-08 09:16 | Outpatient (CLI) | payer MEDICARE, SELFPAY ==
--- NOTE | ~2022-01-08 | CT_ITS ---
EXAMINATION: CT abdomen pelvis wo con DATE: 01/08/2022 09:42 INDICATION: Hematuria TECHNIQUE: Computed tomography (CT) of the abdomen and pelvis was performed without intravenous contr ast. Automated exposure control and iterative reconstruction technique were employed. The dose-length product was 345.66 mGy-cm. 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 Porfirio cified right hilar and infrahilar lymph nodes consistent with old granulomatous disease. Heart size i s normal. No pericardial or pleural effusion. Gallbladder is decompressed around a few calcified gall stones. No wall thickening or pericholecystic inflammatory stranding to suggest acute cholecystitis. Liver, spleen and bilateral adrenal glands are normal. Tiny calcification at the tail of the pancreas may represent sequela of chronic pancreatitis. Mild bilateral renal cortical atrophy with 2.5 cm cys t at the lower pole of the right kidney. No urolithiasis or hydronephrosis. 1.6 cm diverticulum arisi ng from the right posterior wall of the bladder. Mild prostatomegaly measuring 4.0 x 3.5 cm. No free intraperitoneal gas or fluid. Small fat-containing left inguinal hernia with changes of prior left in guinal hernia mesh repair. Nonspecific mild haziness to the central mesenteric fat in the left abdome n. No pathologically enlarged abdominal or pelvic lymphadenopathy. No free intraperitoneal gas or flu id. Mild thoracic and lumbar spondylosis. Chronic mild anterior wedging at T8. IMPRESSION: 1. No urolithiasis or acute intra-abdominal/pelvic process. 2. Significant interval improvement in now mild chronic interstitial lung disease in the visualized l ower lungs likely related to prior COVID pneumonia. 3. Cholelithiasis. 4. Small fat-containing left inguinal hernia with change of prior left inguinal hernia mesh repair. Reviewed, dictated and finalized at location A. IMPRESSION: 1. No urolithiasis or acute intra-abdominal/pelvic process. 2. Significant interval improvement in now mild chronic interstitial lung disea se in the visualized lower lungs likely related to prior COVID pneumonia. 3. Cholelithiasis. 4. Small fat-containing left inguinal hernia with change of prior left inguinal hernia mesh repair.
== END 2022-01-08 09:17 | disposition home or self-care (01) ==
LOC: CHSIMG 09:20
PROVIDERS: PCP Internal Medicine; Visit Provider Internal Medicine
DX: R31.9 Hematuria, unspecified (principal)
CPT/HCPCS: 74176

== ENCOUNTER 2022-03-25 09:32 | Outpatient (CLI) | payer MEDICARE, SELFPAY ==
[2022-03-25 09:43] LABS: Basophils Absolute Auto 0.15 K/mm3 (0.00-0.10); Basophils Percent Auto 1.7 % (0.0-1.0); Eosinophils Absolute Auto 0.38 K/mm3 (0.02-0.50); Eosinophils Percent Auto 4.2 % (1.0-6.0); Hematocrit 38.1 % (37.0-46.0); Hemoglobin 12.7 g/dL (12.4-15.3); Immature Granulocyte Absolute 0.15 K/mm3 (0.00-0.00); Immature Granulocyte Percent A 1.7 % (0.0-0.0); Lymphocytes Absolute Auto 1.81 K/mm3 (1.10-4.50); Lymphocytes Percent Auto 20.2 % (18.0-42.0); Mean Corpuscular HGB Conc 33.3 g/dL (32.0-36.0); Mean Corpuscular Hemoglobin 35.1 pg (27.0-31.0); Mean Corpuscular Volume 105.2 fL (78.0-102.0); Monocytes Absolute Auto 1.02 K/mm3 (0.10-0.90); Monocytes Percent Auto 11.4 % (2.0-11.0); Neutrophils Absolute Auto 5.5 K/mm3 (1.7-7.2); Neutrophils Percent Auto 60.8 % (50.0-70.0); Platelet Count Result 190 K/mm3 (150-420); Red Blood Count 3.62 M/mm3 (4.70-6.10); Red Cell Distribution Width 13.2 % (11.6-14.4)
[2022-03-25 09:58] LABS: Add Urine Microscopic? NO; Appearance Urine Clear (Clear); Bilirubin Urine Negative (Negative); Blood Urine Negative (Negative); Color Urine Light Yellow (Yellow); Glucose Urine UA Negative (Negative); Ketones Urine Negative (Negative); Leukocyte Esterase Ur Negative (Negative); Nitrate Urine Negative (Negative); Protein Urine Negative (Negative); Specific Grav Ur 1.025 (1.010-1.020); Urobilinogen Urine 0.2 mg/dL (0.2-1.0)
[2022-03-25 10:17] LABS: Anion Gap 7 mmol/L (8-16); Blood Urea Nitrogen 26 mg/dL (7-18); Calcium 8.9 mg/dL (8.5-10.1); Carbon Dioxide 27 mmol/L (21-32); Chloride 106 mmol/L (98-108); Estimated Glomerular Filt Rate 33; Glucose 126 mg/dL (70-99); Osmolality Calculated 296 mOsm/kg (285-295); Potassium 4.4 mmol/L (3.5-5.1); Sodium 140 mmol/L (136-145)
== END 2022-03-25 09:33 | disposition home or self-care (01) ==
LOC: CHSLAB 09:34
PROVIDERS: PCP Internal Medicine; Visit Provider Internal Medicine
DX: N18.4 Chronic kidney disease, stage 4 (severe) (principal)
CPT/HCPCS: 36415; 80048; 81003; 85025

== ENCOUNTER 2022-04-25 07:36 | Outpatient (CLI) | payer MEDICARE, SELFPAY ==
[2022-04-25 08:00] LABS: Basophils Absolute Auto 0.15 K/mm3 (0.00-0.10); Basophils Percent Auto 1.9 % (0.0-1.0); Eosinophils Absolute Auto 0.32 K/mm3 (0.02-0.50); Hematocrit 40.5 % (37.0-46.0); Hemoglobin 13.2 g/dL (12.4-15.3); Immature Granulocyte Absolute 0.07 K/mm3 (0.00-0.00); Immature Granulocyte Percent A 0.9 % (0.0-0.0); Lymphocytes Absolute Auto 1.44 K/mm3 (1.10-4.50); Lymphocytes Percent Auto 17.9 % (18.0-42.0); Mean Corpuscular HGB Conc 32.6 g/dL (32.0-36.0); Mean Corpuscular Hemoglobin 34.6 pg (27.0-31.0); Mean Corpuscular Volume 106.3 fL (78.0-102.0); Mean Platelet Volume 10.2 fl (8.7-11.0); Monocytes Absolute Auto 0.99 K/mm3 (0.10-0.90); Monocytes Percent Auto 12.3 % (2.0-11.0); Neutrophils Absolute Auto 5.1 K/mm3 (1.7-7.2); Platelet Count Result 194 K/mm3 (150-420); Red Blood Count 3.81 M/mm3 (4.70-6.10); Red Cell Distribution Width 12.9 % (11.6-14.4)
[2022-04-25 08:39] LABS: Hemoglobin A1C 5.8 % (<5.7)
[2022-04-25 08:51] LABS: Appearance Urine Clear (Clear); Bilirubin Urine Negative (Negative); Blood Urine Negative (Negative); Glucose Urine UA Negative (Negative); Ketones Urine Negative (Negative); Leukocyte Esterase Ur Negative (Negative); Nitrate Urine Negative (Negative); Protein Urine Negative (Negative); Urobilinogen Urine 0.2 mg/dL (0.2-1.0); pH Urine 6.5 (5.0-8.0)
[2022-04-25 08:55] LABS: Add Urine Microscopic? NO; Color Urine Light Yellow (Yellow)
[2022-04-25 09:23] LABS: Alanine Aminotransferase 60 U/L (16-63); Alkaline Phosphatase 74 U/L (46-116); Anion Gap 10 mmol/L (8-16); Aspartate Amino Transferase 36 U/L (15-37); Bilirubin,Total 0.4 mg/dL (0.00-1.00); Blood Urea Nitrogen 22 mg/dL (7-18); Calcium 9.1 mg/dL (8.5-10.1); Carbon Dioxide 29 mmol/L (21-32); Chloride 105 mmol/L (98-108); Cholesterol 190 mg/dL (0-200); Estimated Glomerular Filt Rate 37; Glucose 103 mg/dL (70-99); HDL Direct 48 mg/dL (40-60); LDL Cholesterol Calculated 107 mg/dL (<130); Osmolality Calculated 301 mOsm/kg (285-295); Potassium 4.8 mmol/L (3.5-5.1); Sodium 144 mmol/L (136-145); Total Protein 8.1 g/dL (6.4-8.2); Triglycerides 177 mg/dL (0-150)
[2022-04-25 09:24] LABS: CRP < 0.5 mg/dL (0.0-0.9)
[2022-04-25 09:41] LABS: Erythrocyte Sedimentation Rate 48 mm/hr (0-30)
[2022-04-28 08:18] LABS: Albumin 4.4 g/dL (3.8-4.8); Alpha 1 Globulin 0.3 g/dL (0.2-0.3); Alpha 2 Globulin 0.9 g/dL (0.5-0.9); Beta 1 Globulin 0.5 g/dL (0.4-0.6); Gamma Globulin 1.4 g/dL (0.8-1.7); Protein, Total 7.9 g/dL (6.1-8.1)
[2022-04-28 15:23] LABS: Kappa\\Lambda Light Chains 1.32 (0.26-1.65); Lambda Light Chain 30.5 mg/L (5.7-26.3)
[2022-04-29 12:08] LABS: Anti Nuclear Antibody Pattern Nuclear, Nucleolar
[2022-05-02 20:55] LABS: Creatinine, Random Urine 142 mg/dL (20-320); Total Protein/Creatinine Ratio 113 mg/g creat (25-148)
== END 2022-04-25 07:37 | disposition home or self-care (01) ==
LOC: CHSLAB 07:39
PROVIDERS: PCP Internal Medicine; Visit Provider Internal Medicine
DX: R73.01 Impaired fasting glucose (principal); N39.0 Urinary tract infection, site not specified; N18.4 Chronic kidney disease, stage 4 (severe)
CPT/HCPCS: 36415; 80053; 80061; 81003; 82570; 83036; 83883; 84155; 84156; 84165; 84166; 85025; 85652; 86038; 86039; 86140; 86334; 87086; 87088

== ENCOUNTER 2022-07-30 08:54 | Outpatient (CLI) | payer MEDICARE, SELFPAY ==
[2022-07-30 09:10] LABS: Appearance Urine Clear (Clear); Bilirubin Urine Negative (Negative); Blood Urine 2+ (Negative); Color Urine Light Yellow (Yellow); Glucose Urine UA Negative (Negative); Ketones Urine Negative (Negative); Leukocyte Esterase Ur 1+ (Negative); Nitrate Urine Negative (Negative); Protein Urine Negative (Negative); Urobilinogen Urine 0.2 mg/dL (0.2-1.0); pH Urine 5.5 (5.0-8.0)
[2022-07-30 09:14] LABS: Add Urine Microscopic? YES; Bacteria Urine Rare /hpf
[2022-07-30 09:41] LABS: Anion Gap 8 mmol/L (8-16); Blood Urea Nitrogen 23 mg/dL (7-18); Calcium 9.3 mg/dL (8.5-10.1); Carbon Dioxide 29 mmol/L (21-32); Chloride 103 mmol/L (98-108); Estimated Glomerular Filt Rate 38; Glucose 136 mg/dL (70-99); Osmolality Calculated 295 mOsm/kg (285-295); Potassium 4.4 mmol/L (3.5-5.1); Sodium 140 mmol/L (136-145)
== END 2022-07-30 08:55 | disposition home or self-care (01) ==
LOC: CHSLAB 08:56
PROVIDERS: PCP Internal Medicine; Visit Provider Internal Medicine
DX: N18.4 Chronic kidney disease, stage 4 (severe) (principal); N39.0 Urinary tract infection, site not specified
CPT/HCPCS: 36415; 80048; 81001; 87086

== ENCOUNTER 2023-01-30 07:59 | Outpatient (CLI) | payer MEDICARE, SELFPAY ==
[2023-01-30 08:13] LABS: Basophils Percent Auto 1.7 % (0.0-1.0); Eosinophils Absolute Auto 0.55 K/mm3 (0.02-0.50); Eosinophils Percent Auto 4.6 % (1.0-6.0); Hematocrit 42.1 % (37.0-46.0); Hemoglobin 13.9 g/dL (12.4-15.3); Immature Granulocyte Absolute 0.15 K/mm3 (0.00-0.00); Immature Granulocyte Percent A 1.3 % (0.0-0.0); Lymphocytes Absolute Auto 2.38 K/mm3 (1.10-4.50); Mean Corpuscular Hemoglobin 35.1 pg (27.0-31.0); Mean Corpuscular Volume 106.3 fL (78.0-102.0); Mean Platelet Volume 10.1 fl (8.7-11.0); Monocytes Absolute Auto 1.25 K/mm3 (0.10-0.90); Monocytes Percent Auto 10.5 % (2.0-11.0); Neutrophils Absolute Auto 7.4 K/mm3 (1.7-7.2); Neutrophils Percent Auto 61.9 % (50.0-70.0); Platelet Count Result 225 K/mm3 (150-420); Red Blood Count 3.96 M/mm3 (4.70-6.10); Red Cell Distribution Width 12.1 % (11.6-14.4); White Blood Count 11.9 K/mm3 (4.8-10.8)
[2023-01-30 08:14] LABS: Appearance Urine Clear (Clear); Bilirubin Urine Negative (Negative); Blood Urine Negative (Negative); Color Urine Light Yellow (Yellow); Glucose Urine UA Negative (Negative); Ketones Urine Negative (Negative); Leukocyte Esterase Ur Negative LEU/UL (Negative); Nitrate Urine Negative (Negative); Protein Urine Negative (Negative); Specific Grav Ur 1.015 (1.010-1.020); Urobilinogen Urine 0.2 mg/dL (0.2-1.0)
[2023-01-30 08:18] LABS: Add Urine Microscopic? NO
[2023-01-30 08:27] LABS: Hemoglobin A1C 6.2 % (<5.7)
[2023-01-30 08:34] LABS: Alanine Aminotransferase 40 U/L (16-63); Albumin Level 3.8 g/dL (3.4-5.0); Alkaline Phosphatase 72 U/L (46-116); Anion Gap 12 mmol/L (8-16); Aspartate Amino Transferase 19 U/L (15-37); Bilirubin,Total 0.7 mg/dL (0.00-1.00); Blood Urea Nitrogen 23 mg/dL (7-18); Calcium 9.3 mg/dL (8.5-10.1); Carbon Dioxide 28 mmol/L (21-32); Chloride 101 mmol/L (98-108); Cholesterol 180 mg/dL (0-200); Creatine Kinase 179 U/L (39-308); Estimated Glomerular Filt Rate 35; Glucose 119 mg/dL (70-99); HDL Direct 43 mg/dL (40-60); LDL Cholesterol Calculated 94 mg/dL (<130); Osmolality Calculated 296 mOsm/kg (285-295); Potassium 4.3 mmol/L (3.5-5.1); Sodium 141 mmol/L (136-145); Total Protein 7.9 g/dL (6.4-8.2); Triglycerides 216 mg/dL (0-150)
== END 2023-01-30 08:00 | disposition home or self-care (01) ==
LOC: CHSLAB 08:01
PROVIDERS: PCP Internal Medicine; Visit Provider Internal Medicine
DX: N39.0 Urinary tract infection, site not specified (principal); R73.01 Impaired fasting glucose; E78.2 Mixed hyperlipidemia; I10 Essential (primary) hypertension
CPT/HCPCS: 36415; 80053; 80061; 81003; 82550; 83036; 85025

== ENCOUNTER 2023-07-31 07:59 | Outpatient (CLI) | payer MEDICARE, SELFPAY ==
[2023-07-31 08:15] LABS: Appearance Urine Clear (Clear); Basophils Absolute Auto 0.14 K/mm3 (0.00-0.10); Basophils Percent Auto 1.6 % (0.0-1.0); Bilirubin Urine Negative (Negative); Blood Urine Negative (Negative); Color Urine Light Yellow (Yellow); Eosinophils Absolute Auto 0.47 K/mm3 (0.02-0.50); Eosinophils Percent Auto 5.3 % (1.0-6.0); Glucose Urine UA Negative (Negative); Hematocrit 43.7 % (37.0-46.0); Hemoglobin 14.2 g/dL (12.4-15.3); Immature Granulocyte Absolute 0.08 K/mm3 (0.00-0.00); Immature Granulocyte Percent A 0.9 % (0.0-0.0); Ketones Urine Negative (Negative); Leukocyte Esterase Ur 1+ (Negative); Lymphocytes Absolute Auto 1.31 K/mm3 (1.10-4.50); Lymphocytes Percent Auto 14.7 % (18.0-42.0); Mean Corpuscular HGB Conc 32.5 g/dL (32.0-36.0); Mean Corpuscular Hemoglobin 34.4 pg (27.0-31.0); Mean Corpuscular Volume 105.8 fL (78.0-102.0); Mean Platelet Volume 9.9 fl (8.7-11.0); Monocytes Absolute Auto 0.78 K/mm3 (0.10-0.90); Monocytes Percent Auto 8.7 % (2.0-11.0); Neutrophils Absolute Auto 6.1 K/mm3 (1.7-7.2); Neutrophils Percent Auto 68.8 % (50.0-70.0); Nitrate Urine Negative (Negative); Platelet Count Result 214 K/mm3 (150-420); Protein Urine Negative (Negative); Red Blood Count 4.13 M/mm3 (4.70-6.10); Red Cell Distribution Width 12.5 % (11.6-14.4); Specific Grav Ur 1.015 (1.010-1.020); Urobilinogen Urine 0.2 mg/dL (0.2-1.0); White Blood Count 8.9 K/mm3 (4.8-10.8)
[2023-07-31 08:25] LABS: Add Urine Microscopic? YES; Bacteria Urine Trace /hpf; RBC Urine None seen /hpf (0-2)
[2023-07-31 08:55] LABS: Hemoglobin A1C 5.9 % (<5.7)
[2023-07-31 09:30] LABS: Alanine Aminotransferase 42 U/L (16-63); Albumin Level 4.1 g/dL (3.4-5.0); Alkaline Phosphatase 88 U/L (46-116); Anion Gap 8 mmol/L (8-16); Aspartate Amino Transferase 29 U/L (15-37); Bilirubin,Total 0.6 mg/dL (0.00-1.00); Blood Urea Nitrogen 15 mg/dL (7-18); Calcium 9.1 mg/dL (8.5-10.1); Carbon Dioxide 31 mmol/L (21-32); Chloride 101 mmol/L (98-108); Cholesterol 187 mg/dL (0-200); Estimated Glomerular Filt Rate 44; Ferritin 453 ng/mL (26-388); Free T3 2.49 pg/mL (2.18-3.98); Free T4 Free Thyroxine 0.88 ng/dL (0.76-1.46); Glucose 106 mg/dL (70-99); HDL Direct 55 mg/dL (40-60); Iron 85 ug/dL (65-175); LDL Cholesterol Calculated 101 mg/dL (<130); Osmolality Calculated 290 mOsm/kg (285-295); Potassium 4.8 mmol/L (3.5-5.1); Sodium 140 mmol/L (136-145); Thyroid Stimulating Hormone 4.06 uIU/mL (0.36-3.74); Total Protein 8.5 g/dL (6.4-8.2); Triglycerides 156 mg/dL (0-150); Vitamin B12 593 pg/mL (193-986)
== END 2023-07-31 08:00 | disposition home or self-care (01) ==
LOC: CHSLAB 08:01
PROVIDERS: PCP Internal Medicine; Visit Provider Internal Medicine
DX: N18.4 Chronic kidney disease, stage 4 (severe) (principal); I10 Essential (primary) hypertension; E78.2 Mixed hyperlipidemia; D64.9 Anemia, unspecified; R73.01 Impaired fasting glucose
CPT/HCPCS: 36415; 80053; 80061; 81001; 82607; 82728; 83036; 83540; 84439; 84443; 84481; 85025

== ENCOUNTER 2024-02-10 07:08 | Outpatient (CLI) | payer MEDICARE, SELFPAY ==
[2024-02-10 07:24] LABS: Hematocrit 38.6 % (37.0-46.0); Mean Corpuscular HGB Conc 33.7 g/dL (32-36); Mean Platelet Volume 9.9 fl (8.7-11.0); Platelet Count Result 184 K/mm3 (150-420); Red Blood Count 3.71 M/mm3 (4.70-6.10); Red Cell Distribution Width 12.4 % (11.6-14.4); White Blood Count 7.9 K/mm3 (4.8-10.8)
[2024-02-10 07:25] LABS: Add Urine Microscopic? YES; Appearance Urine Clear (Clear); Bilirubin Urine Negative (Negative); Blood Urine Negative (Negative); Color Urine Light Yellow (Yellow); Glucose Urine UA Negative (Negative); Ketones Urine Negative (Negative); Leukocyte Esterase Ur Trace LEU/UL (Negative); Nitrate Urine Negative (Negative); Protein Urine Negative (Negative); Specific Grav Ur 1.025 (1.010-1.020); Urobilinogen Urine 0.2 mg/dL (0.2-1.0)
[2024-02-10 07:48] LABS: Bacteria Urine Rare /hpf; RBC Urine None seen /hpf (0-2); Squamous Epithelial Cell Urine Occasional /hpf (Few); WBC Urine 0-3 /hpf (0-3)
[2024-02-10 14:21] LABS: Hemoglobin A1C 5.7 % (<5.7)
[2024-02-10 14:47] LABS: Alanine Aminotransferase 22 U/L (16-63); Albumin Level 3.6 g/dL (3.4-5.0); Alkaline Phosphatase 64 U/L (46-116); Anion Gap 9 mmol/L (4-12); Aspartate Amino Transferase 23 U/L (15-37); Bilirubin,Total 0.6 mg/dL (0.00-1.00); Blood Urea Nitrogen 16 mg/dL (7-18); Calcium 8.1 mg/dL (8.5-10.1); Carbon Dioxide 27 mmol/L (21-32); Chloride 103 mmol/L (98-108); Cholesterol 175 mg/dL (0-200); Creatine Kinase 125 U/L (39-308); Estimated Glomerular Filt Rate 41; Free T3 2.27 pg/mL (2.18-3.98); Free T4 Free Thyroxine 0.86 ng/dL (0.76-1.46); Glucose 95 mg/dL (70-99); HDL Direct 47 mg/dL (40-60); LDL Cholesterol Calculated 105 mg/dL (<130); Osmolality Calculated 289 mOsm/kg (285-295); Potassium 4.6 mmol/L (3.5-5.1); Sodium 139 mmol/L (136-145); Thyroid Stimulating Hormone 3.43 uIU/mL (0.36-3.74); Total Protein 7.6 g/dL (6.4-8.2); Triglycerides 115 mg/dL (0-150)
== END 2024-02-10 07:09 | disposition home or self-care (01) ==
LOC: CHSLAB 07:10
PROVIDERS: PCP Internal Medicine; Visit Provider Internal Medicine
DX: E78.2 Mixed hyperlipidemia (principal); I10 Essential (primary) hypertension; R73.01 Impaired fasting glucose; E03.4 Atrophy of thyroid (acquired)
CPT/HCPCS: 36415; 80053; 80061; 81001; 82550; 83036; 84439; 84443; 84481; 85027

== ENCOUNTER 2024-06-28 16:41 | Outpatient (CLI) | payer MEDICARE, SELFPAY ==
--- OUTSIDE RECORDS SUMMARY | 2024-06-28 16:47 | XMS_ITS | Clinical Summary ---
Author Organization [facility] Address [address] [place] [address]. [place] [address] [place] [address] Care Team Providers Care Powder Shoveler Name Role Phone Unavailable Primary Care Provider Unavailabl e Social History Tobacco Use Types Packs/Day Years Used Date Smoking Tobacco: Never Assessed Sex and Gender Information Value Date Recorded Sex Assigned at Not on file Legal Sex Male 11:15 PM CDT Gender Identity Not on file Sexual Orientation Not on file Plan of Treatment Health Maintenance Due Date Last Done Comments DTaP, Tdap and Td Vaccines ( 1 - Tdap) 02[birth year]08/1954 Zoster Vaccines (1 of 2) 02/08/1986 Pneumococcal Vaccine: 65+ Ye ars (1 of 1 - PCV) 02/08/2001 RSV Immunization or 60+ Years (1 - 1-dose 75+ series) 02/08/2011 COVID-19 Vaccine ( - 2023-2 5 season) 2024 Influenza Adult (#1) 2024 Meningococcal B Vaccine Aged Out No l onger eligible based on patient's age to complete this topic Meningococcal Vaccine Aged Out No gonzales lillian eligible based on patient's age to complete this topic RSV Immunizations Under 20 Months Aged Out No longer eligible based on patient's age to complete this topic
--- OUTSIDE RECORDS SUMMARY | 2024-06-28 16:47 | XMS_ITS ---
Author Organization Unknown Address [address] [place] [phone] Phone Care Team Providers Care Monogram Operator Name Role Phone GREG GEORGE Attending Unavailable LION MALDONADO Primary Unavailable Immunization Immunization Date Status Additional Notes Code Code System pneumococcal polysaccharide PPV23 03/19/2012 Completed 33 CVX influenza, unspecified formulation 02/25/2018 Completed 88 CVX Tdap 03/23/2023 Completed 115 CVX Pneumococcal conjugate PCV 13 08/01/2014 Completed 133 CVX Influenza, high-dose, trivalent, PF 03/06/2017 Completed 135 CVX Influenza, high-dose, trivalent, PF 02/21/2018 Completed 135 CVX Influenza, high-dose, trivalent, PF 03/05/2019 Completed 135 CVX Influenza, high-dose, trivalent, PF 02/23/2024 Completed 135 CVX Influenza, split virus, trivalent, preservative 03/22/2013 Completed 141 CVX Influenza, split virus, trivalent, preservative 03/06/2015 Completed 141 CVX Influenza, split virus, quadrivalent, PF 03/27/2021 Completed 150 CVX Influenza, split virus, quadrivalent, preservative 02/15/2016 Completed 158 C VX Influenza, high-dose, quadrivalent, PF 03/11/2020 Completed 197 CVX Influenza, high-dose, quadrivalent, PF 02/06/2022 Completed 197 CVX Influenza, high-dose, quadrivalent, PF 02/20/2023 Completed 197 CVX COVID-19 vaccine, vector-nr, rS-Ad26, PF, 0.5 mL 09/04/2020 Completed 212 CVX COVID-19 vaccine, vector-nr, rS-Ad26, PF, 0.5 mL 05/24/2021 Completed 212 CVX COVID-19, mRNA, LNP-S, bivalent, PF, 30 mcg/0.3 mL dose 04/05/2022 Completed 300 CVX COVID-19, mRNA, LNP-S, PF, meredith-sucrose, 30 mcg/0.3 mL 02/23/2024 Completed 309 CVX COVID-19, mRNA, LNP-S, PF, 5 0 mcg/0.5 mL 03/05/2023 Completed 312 CVX Results 4 PLEX RESPIRATORY COVID FLU RSV PCR - Collect Date/Time: 06/28/2024 04:30 [facility] ID: [id number] [place] [address], [id number] LOINC: [id number] Test Value Unit Reference Range Code Code System Flag SARS CoV2 PCR NEGATIVE FLU A PCR POSITIVE A FLU B PCR NEGATIVE RSV PCR NEGATIVE SEND TO [facility]? YES Social History Type Status Start Date End Date Code Code Syst em Smoking History Never smoker (Never Smoked) [id number] SNOMED CT Sex Male Hospital Discharge Instructions Should you have any questions prior to discharge, please contact a member of your healthcare team. If you have left the hospital and have any questions, please contact your primary care physician. Reason For Referral No Data Found Plan of Treatment No Data Found Personal Care Team Section Performer Name Performer Role Active Date Inactive JOEL Wills PCP - Primary care physician 2021-12-05
--- OUTSIDE RECORDS SUMMARY | 2024-06-28 16:47 | XMS_ITS ---
Author Organization Unknown Address [address] [place] [phone] Phone Care Team Providers Care Maintainability Engineer Name Role Phone GREG GEORGE Attending Unavailable [...] mcg/0.5 mL 03/05/2023 Completed 312 CVX Results CBC W/ DIFF - Collect Date/T naima: 03/23/2023 11:40 [facility] ID: [id number] [address] [place], [place], [id number] LOINC: 26640-6 Test Value Unit Reference Range Code Code System Flag WBC 15.2 10^3uL L=4.8 H=10.8 H RBC 3.62 10^6uL L=4.60 H=6.20 L HEMOGLOBIN 12.3 g/dL L=14.0 H=18.0 718-7 LOINC L HEMATOCRIT 38.4 VOL% L=42.0 H=52.0 4544-3 LOINC L MCV 106.1 fL L=80.0 H=94.0 H MCH 34.0 pg L=27.0 H=32.0 H MCHC 32.0 g/dL L=32.0 H=36.0 PLATELETS 201 10^3uL L=100 H=400 63231-2 LOINC RDW 13.1 % L=11.7 H=15.5 %GRAN 85.0 % L=40.0 H=70.0 35416-4 LOINC H %LYMPH 6.6 % L=20.0 H=45.0 736-9 LOINC L %MONO 6.6 % L=2.0 H=10.0 45374-7 LOINC %EOS 0.3 % L=0.0 H=6.0 713-8 LOINC %BASO 0.8 % L=0.0 H=3.0 706-2 LOINC #NEUT 12.9 10^3uL L=1.9 H=7.6 72425-4 LOINC H #LYMPH 1.0 10^3uL L=0.9 H=4.9 91457-0 LOINC #MONO 1.0 10^3uL L=0.1 H=0.9 14178-6 LOINC H #EOS 0.1 10^3uL L=0.0 H=0.6 712-0 LOINC #BASO 0.12 10^3uL L=0.00 H=0.10 52466-2 LOINC H #IM GRANS 0.1 10^3uL L=0.0 H=7.0 15374-0 LOINC %IM GRANS 0.7 % L=0.0 H=5.0 45743-9 LOINC %NRB 0.0 L=0.0 H=0.2 80752-4 LOINC #NRB 0.000 L=0.000 H=0.012 06980-4 LOINC MANUAL DIFF NOT INDICATED RBC MORPH NOT INDICATED COMPREHENSIVE METABOLIC PANE L - Collect Date/Time: 03/23/2023 11:40 [facility] ID: [id number] [address] [place], [place], [phone] LOINC: 17362-6 Test Value Unit Reference Range Code Code System Flag FASTING UNKNOWN BUN 23 mg/dL L=7 H=20 3094-0 LOINC H CREATININE 1.70 mg/dL L=0.66 H=1.25 2160-0 LOINC H GLUCOSE 149 mg/dL L=74 H=106 2345-7 LOINC H SODIUM 140 mmol/L L=132 H=144 2951-2 LOINC POTASSIUM 4.3 mmol/L L=3.5 H=5.1 2823-3 LOINC CHLORIDE 102 mmol/L L=98 H=107 2075-0 LOINC CO2 27.0 mmol/L L=22.0 H=30.0 8-9 LOINC ANION GAP 15 L=10 H=20 37928-2 LOINC OSMOLALITY 296 mOs/kG L=280 H=296 94826-2 LOINC BUN/CREAT 13.5 3097-3 LOINC CALCIUM 9.6 mg/dL L=8.3 H=10.5 38873-7 LOINC AST 37 U/L L=15 H=46 1920-8 LOINC ALT 31 U/L L=9 H=72 1742-6 LOINC ALKALINE PHOS 70 U/L L=38 H=126 6768-6 LOINC TOTAL BILI 1.3 mg/dL L=0.2 H=1.3 1975-2 LOINC ALBUMIN 4.7 G/dL L=3.5 H=5.0 1751-7 LOINC TOTAL PROTEIN 8.9 g/L L=6.3 H=8.2 2885-2 LOINC H A/G RATIO 1.1 35674-8 LOINC AGE 88 89374-9 LOINC eGFR NON-AFR 41 ml/min eGFR AFR AMER 50 ml/min PROTIME - Collect Date/Time: 03/23/2023 11:40 [facility] ID: [id number] [address] [place], [place], [phone] LOINC: 33498-9 Test Value Unit Reference Range Code Code System Flag PT 10.4 Sec L=9.1 H=11.5 00122-4 LOINC INR 1.0 Sec L=0.9 H=1.1 80208-4 LOINC PTT - Collect Date/Time: 11:40 [facility] ID: [id number] [address] [place] [address], [id number] LOINC: 79931-4 Test Value Unit Reference Range Code Code System Flag PTT 23.8 Sec L=23.0 H=29.4 CT ABD/PEL W/ CONTRAST - Com pleted: 03/23/2023 11:28 LOINC: 34075-5 EXAM DESCRIPTION: CT CHEST/LUNG W/ CONTRAST; CT ABD/PEL W/ CONTRAST REASON FOR STUDY: onset x2 days, Fall - posterior head injury. Mid back pain radiates anterior Lt Upper/Mid Abdomen pain. Duration:. Question splenic rupture TECHNIQUE: CT scan of the chest, abdomen pelvis with intravenous contrast. Reconstructed coronal and sagittal MPR images reviewed. All images stored on PACS. Automated exposure control was used as a dose optimization technique for this examination. CONTRAST TYPE/DOSE: For intravenous contrast, the patient received 80 mL of Isovue 370 through right antecubital vein COMPARISON: None FINDINGS: CHEST: No pneumothorax. Acute left 7th through 10th rib fractures. Rib fractures are located laterally and posteriorly. Some are minimally displaced. Slight hyperdense fluid adjacent to the rib fractures noted on axial image 79 and adjacent images. This is of very minimal extent. Scattered linear markings that should relate to some atelectasis and or scarring. Occasional tree-in-bud opacities that should be infectious in origin. Some scattered minimal areas of ground-glass opacities likely reflecting small airway disease. No pathologic sized nodes of the chest. Some shotty nodes are noted. Small hiatal hernia. ABDOMEN: Spleen is normal in appearance. Hypodensities of the kidneys. Some are large enough to be determined benign cyst. Others are too small to fully characterize and likely represent benign cyst. No additional follow-up requested of these findings. No suspicious hepatic mass. Gallstones. No free air, free fluid or pathologic sized nodes of the abdomen. Some mesenteric fat stranding with some sparing of the perivascular fat. PELVIS: No free air, free fluid or pathologic sized nodes of the pelvis. Colonic diverticulosis. No diverticulitis. Bowel obstruction. Urinary bladder diverticulum noted. IMPRESSION: ? ? Acute left 7th through 10th rib fractures. Very tiny amount of left hemithorax suspected. No pneumothorax. ? ? Some tree-in-bud opacities of the lungs that should be infectious in origin. ? ? Gallstones. ? ? Some mesenteric fat stranding with some sparing of the perivascular fat. This is of uncertain significance with panniculitis considered. THIS IS AN ELECTRONICALLY VERIFIED FINAL REPORT 03/23/2023 1:55 PM - Electronically signed by Bienvenido Wolfe M.D. JS: MARILEE Report ID: [id number] Reading Location: [id number] CT BRAIN WO CONTRAST - Compl eted: 03/23/2023 12:11 LOINC: EXAM DESCRIPTION: CT BRAIN WO CONTRAST REASON FOR STUDY: onset x2 days, Fall - posterior head injury. denies headache. Duration: . TECHNIQUE: Axial images acquired through the brain without intravenous contrast. Images stored on PACS. Automated exposure control was used as a dose optimization technique for this examination. COMPARISON: 12/05/2021 FINDINGS: BRAIN: No hemorrhage, edema or mass effect. No recent infarct. The ventricular system and subarachnoid spaces are moderately enlarged. EXTRA-AXIAL SPACES: No fluid collections. No masses. CALVARIUM: No fracture. SINUSES/MASTOIDS: No fluid or mucosal thickening. ORBITS: No significant abnormality. OTHER: No other significant abnormality. IMPRESSION: Atrophy, no acute intracranial findings. THIS IS AN ELECTRONICALLY VERIFIED FINAL REPORT 03/23/2023 1:08 PM - Electronically signed by Ant Enriquez M.D. NORMA: NORMA Report ID: [id number] Reading Location: [id number] CT CERVICAL SPINE WO CONTRAS T - Completed: 03/23/2023 12:11 LOINC: EXAM DESCRIPTION: CT CERVICAL SPINE WO CONTRAST REASON FOR STUDY: onset x2 days, Fall - posterior head injury. denies headache. Duration: . TECHNIQUE: Axial images through the cervical spine with sagittal and coronal reformatted images. Automated exposure control was used as a dose optimization technique for this examination. COMPARISON: None FINDINGS: ALIGNMENT: Normal. VERTEBRAE: No fracture. Vertebral body heights well-maintained. DISCS: Disc space narrowing and osteophyte formation are seen at C5-6 and C6-7. HARDWARE: None in the spine. INDIVIDUAL DISC LEVELS: Severe left foraminal narrowing is seen at C6-7. Moderate bilateral foraminal narrowing is seen at C4-5 and C5-6. there may be mild acquired spinal stenosis at C6-7. UPPER THORACIC: Incompletely imaged. No significant osseous spinal stenosis or osseous neural foraminal stenosis. SKULL BASE: No significant finding. LUNG APICES: No significant abnormality. NECK SOFT TISSUES: No significant abnormality. OTHER: No other significant findings. IMPRESSION: ? ? 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 There may be mild acquired spinal stenosis at C6-7. ? ? No cervical spine fracture. THIS IS AN ELECTRONICALLY VERIFIED FINAL REPORT 03/23/2023 1:14 PM - Electronically signed by Ant Enriquez M.D. NORMA: NORMA Report ID: [id number] Reading Location: [id number] CT CHEST/LUNG W/ CONTRAST - Completed: 03/23/2023 11:28 LOINC: EXAM DESCRIPTION: CT CHEST/LUNG W/ CONTRAST; CT ABD/PEL W/ CONTRAST REASON FOR STUDY: onset x2 days, Fall - posterior head injury. Mid back pain radiates anterior Lt Upper/Mid Abdomen pain. Duration:. Question splenic rupture TECHNIQUE: CT scan of the chest, abdomen pelvis with intravenous contrast. Reconstructed coronal and sagittal MPR images reviewed. All images stored on PACS. Automated exposure control was used as a dose optimization technique for this examination. CONTRAST TYPE/DOSE: For intravenous contrast, the patient received 80 mL of Isovue 370 through right antecubital vein COMPARISON: None FINDINGS: CHEST: No pneumothorax. Acute left 7th through 10th rib fractures. Rib fractures are located laterally and posteriorly. Some are minimally displaced. Slight hyperdense fluid adjacent to the rib fractures noted on axial image 79 and adjacent images. This is of very minimal extent. Scattered linear markings that should relate to some atelectasis and or scarring. Occasional tree-in-bud opacities that should be infectious in origin. Some scattered minimal areas of ground-glass opacities likely reflecting small airway disease. No pathologic sized nodes of the chest. Some shotty nodes are noted. Small hiatal hernia. ABDOMEN: Spleen is normal in appearance. Hypodensities of the kidneys. Some are large enough to be determined benign cyst. Others are too small to fully characterize and likely represent benign cyst. No additional follow-up requested of these findings. No suspicious hepatic mass. Gallstones. No free air, free fluid or pathologic sized nodes of the abdomen. Some mesenteric fat stranding with some sparing of the perivascular fat. PELVIS: No free air, free fluid or pathologic sized nodes of the pelvis. Colonic diverticulosis. No diverticulitis. Bowel obstruction. Urinary bladder diverticulum noted. IMPRESSION: ? ? Acute left 7th through 10th rib fractures. Very tiny amount of left hemithorax suspected. No pneumothorax. ? ? Some tree-in-bud opacities of the lungs that should be infectious in origin. ? ? Gallstones. ? ? Some mesenteric fat stranding with some sparing of the perivascular fat. This is of uncertain significance with panniculitis considered. THIS IS AN ELECTRONICALLY VERIFIED FINAL REPORT 03/23/2023 1:55 PM - Electronically signed by Bienvenido Wolfe M.D. JS: MARILEE Report ID: [id number] Reading Location: [id number] Social History Type Status Start Date End Date Code Code Syst em Smoking History Never smoker (Never Smoked) 505785745 SNOMED CT Sex Male Hospital Discharge Instructions Should you have any questions prior to discharge, please contact a member of your healthcare team. If you have left the hospital and have any questions, please contact your primary care physician. Reason For Referral No Data Found Plan of Treatment No Data Found Encounters Encounter Diagnosis Start Date Code Code Sys tem Multiple fractures of ribs, left side, initial encounter for closed fracture 03/23/2023 SNOMED-CT Personal Care Team Section Performer Name Performer Role Active Date Inactive JOEL Wills PCP - Primary care physician 2021-12-05 Imaging Narrative Notes
[2024-06-28 16:58] LABS: Basophils Percent Auto 0.9 % (0.0-1.0); Eosinophils Absolute Auto 0.16 K/mm3 (0.02-0.50); Eosinophils Percent Auto 1.4 % (1.0-6.0); Hematocrit 35.8 % (37.0-46.0); Hemoglobin 11.6 g/dL (12.4-15.3); Immature Granulocyte Absolute 0.07 K/mm3 (0.00-0.00); Immature Granulocyte Percent A 0.6 % (0.0-0.0); Lymphocytes Absolute Auto 0.66 K/mm3 (1.10-4.50); Lymphocytes Percent Auto 5.9 % (18.0-42.0); Mean Corpuscular HGB Conc 32.4 g/dL (32-36); Mean Corpuscular Hemoglobin 34.2 pg (27.0-31.0); Mean Corpuscular Volume 105.6 fL (78.0-102.0); Monocytes Absolute Auto 1.63 K/mm3 (0.10-0.90); Monocytes Percent Auto 14.7 % (2.0-11.0); Neutrophils Percent Auto 76.5 % (50.0-70.0); Platelet Count Result 158 K/mm3 (150-420); Red Blood Count 3.39 M/mm3 (4.70-6.10); Red Cell Distribution Width 12.9 % (11.6-14.4); White Blood Count 11.1 K/mm3 (4.8-10.8)
[2024-06-28 17:12] LABS: Add Urine Microscopic? YES; Appearance Urine Clear (Clear); Bacteria Urine Trace /hpf; Bilirubin Urine Negative (Negative); Blood Urine 1+ (Negative); Color Urine Yellow (Yellow); Glucose Urine UA Negative (Negative); Ketones Urine Trace (Negative); Leukocyte Esterase Ur Negative (Negative); Nitrate Urine Negative (Negative); Protein Urine 1+ (Negative); Specific Grav Ur 1.025 (1.010-1.020); Squamous Epithelial Cell Urine Few /hpf (Few); Urobilinogen Urine 0.2 mg/dL (0.2-1.0); WBC Urine None seen /hpf (0-3)
[2024-06-28 17:26] LABS: Alanine Aminotransferase 20 U/L (16-63); Albumin Level 3.7 g/dL (3.4-5.0); Alkaline Phosphatase 63 U/L (46-116); Anion Gap 9 mmol/L (4-12); Aspartate Amino Transferase 23 U/L (15-37); Bilirubin,Total 1.2 mg/dL (0.00-1.00); Blood Urea Nitrogen 24 mg/dL (7-18); Calcium 8.9 mg/dL (8.5-10.1); Carbon Dioxide 28 mmol/L (21-32); Chloride 100 mmol/L (98-108); Estimated Glomerular Filt Rate 33; Glucose 115 mg/dL (70-99); Osmolality Calculated 289 mOsm/kg (285-295); Potassium 4.4 mmol/L (3.5-5.1); Sodium 137 mmol/L (136-145); Total Protein 7.5 g/dL (6.4-8.2)
== END 2024-06-28 16:42 | disposition home or self-care (01) ==
LOC: CHSLAB 16:45
PROVIDERS: PCP Internal Medicine; Visit Provider Internal Medicine
DX: N39.0 Urinary tract infection, site not specified (principal); J10.1 Influenza due to other identified influenza virus with other respiratory manifestations
CPT/HCPCS: 36415; 80053; 81001; 85025; 87086

== ENCOUNTER 2024-07-07 10:39 | Outpatient (CLI) | payer MEDICARE, SELFPAY ==
--- OUTSIDE RECORDS SUMMARY | 2024-07-07 11:37 | XMS_ITS | Clinical Summary ---
Author Organization [facility] Address [facility] [place] [address] Care Team Providers Care Theatre Director Name Role Phone Unavailable Primary Care Provider [...] - 1-dose 75+ series) 02/08/2011 COVID-19 Vaccine (2023-2 5 season) 2024 Influenza Adult (#1) 2024 [...]
--- OUTSIDE RECORDS SUMMARY | 2024-07-07 11:37 | XMS_ITS ---
Author Organization Unknown Address [address] [place] [phone] Phone Care Team Providers Care Restaurant Bartender Name Role Phone GREG GEORGE Attending Unavailable [...] DIFF - Collect Date/T naima: 03/23/2023 11:40 [facility] ID: [id number] [address] [place], [place], [address] LOINC: 08721-7 Test Value Unit Reference Range Code Code System Flag WBC 15.2 10^3uL L=4.8 H=10.8 H RBC 3.62 10^6uL L=4.60 H=6.20 L HEMOGLOBIN 12.3 g/dL L=14.0 H=18.0 718-7 LOINC L HEMATOCRIT 38.4 VOL% L=42.0 H=52.0 4544-3 LOINC L MCV 106.1 fL L=80.0 H=94.0 H MCH 34.0 pg L=27.0 H=32.0 H MCHC 32.0 g/dL L=32.0 H=36.0 PLATELETS 201 10^3uL L=100 H=400 62246-7 LOINC RDW 13.1 % L=11.7 H=15.5 %GRAN 85.0 % L=40.0 H=70.0 92517-2 LOINC H %LYMPH 6.6 % L=20.0 H=45.0 736-9 LOINC L %MONO 6.6 % L=2.0 H=10.0 89553-0 LOINC %EOS 0.3 % L=0.0 H=6.0 713-8 LOINC %BASO 0.8 % L=0.0 H=3.0 706-2 LOINC #NEUT 12.9 10^3uL L=1.9 H=7.6 62718-2 LOINC H #LYMPH 1.0 10^3uL L=0.9 H=4.9 86610-5 LOINC #MONO 1.0 10^3uL L=0.1 H=0.9 13349-4 LOINC H #EOS 0.1 10^3uL L=0.0 H=0.6 712-0 LOINC #BASO 0.12 10^3uL L=0.00 H=0.10 25801-8 LOINC H #IM GRANS 0.1 10^3uL L=0.0 H=7.0 43850-0 LOINC %IM GRANS 0.7 % L=0.0 H=5.0 35862-9 LOINC %NRB 0.0 L=0.0 H=0.2 38637-7 LOINC #NRB 0.000 L=0.000 H=0.012 48807-7 LOINC MANUAL DIFF NOT INDICATED RBC MORPH NOT INDICATED COMPREHENSIVE METABOLIC PANE L - Collect Date/Time: 03/23/2023 11:40 [facility] ID: [id number] [address] [place], [place], [id number] LOINC: 43094-7 Test Value Unit Reference Range Code Code System Flag FASTING UNKNOWN BUN 23 mg/dL L=7 H=20 3094-0 LOINC H CREATININE 1.70 mg/dL L=0.66 H=1.25 2160-0 LOINC H GLUCOSE 149 mg/dL L=74 H=106 2345-7 LOINC H SODIUM 140 mmol/L L=132 H=144 2951-2 LOINC POTASSIUM 4.3 mmol/L L=3.5 H=5.1 2823-3 LOINC CHLORIDE 102 mmol/L L=98 H=107 2075-0 LOINC CO2 27.0 mmol/L L=22.0 H=30.0 2028-9 LOINC ANION GAP 15 L=10 H=20 61679-8 LOINC OSMOLALITY 296 mOs/kG L=280 H=296 88410-3 LOINC BUN/CREAT 13.5 3097-3 LOINC CALCIUM 9.6 mg/dL L=8.3 H=10.5 11199-3 LOINC AST 37 U/L L=15 H=46 1920-8 LOINC ALT 31 U/L L=9 H=72 1742-6 LOINC ALKALINE PHOS 70 U/L L=38 H=126 6768-6 LOINC TOTAL BILI 1.3 mg/dL L=0.2 H=1.3 1975-2 LOINC ALBUMIN 4.7 G/dL L=3.5 H=5.0 1751-7 LOINC TOTAL PROTEIN 8.9 g/L L=6.3 H=8.2 2885-2 LOINC H A/G RATIO 1.1 08777-0 LOINC AGE 88 65601-7 LOINC eGFR NON-AFR 41 ml/min eGFR AFR AMER 50 ml/min PROTIME - Collect Date/Time: 03/23/2023 11:40 [facility] ID: [id number] [address] [place] [address], [id number] LOINC: 85103-5 Test Value Unit Reference Range Code Code System Flag PT 10.4 Sec L=9.1 H=11.5 31587-3 LOINC INR 1.0 Sec L=0.9 H=1.1 35196-8 LOINC PTT - Collect Date/Time: 11:40 [facility] ID: [id number] [address] [place] [address], [id number] LOINC: 02497-9 Test Value Unit Reference Range Code Code System Flag PTT 23.8 Sec L=23.0 H=29.4 CT ABD/PEL W/ CONTRAST - Com pleted: 03/23/2023 11:28 LOINC: 43708-1 EXAM DESCRIPTION: CT CHEST/LUNG W/ CONTRAST; CT [...] Bienvenido Wolfe M.D. JS: MARILEE Report ID: [id number] Reading Location: [id number] CT BRAIN WO CONTRAST - Compl eted: [...] 1:08 PM - Electronically signed by Ant GREEN: NORMA Report ID: [id number] Reading Location: [id number] CT CERVICAL SPINE WO CONTRAS T - [...] 1:14 PM - Electronically signed by Ant GREEN: NORMA Report ID: [id number] Reading Location: [id number] CT CHEST/LUNG W/ CONTRAST - Completed: 03/23/2023 [...] Bienvenido Wolfe M.D. JS: MARILEE Report ID: [id number] Reading Location: [id number] Social History Type Status Start Date End Date Code Code Syst em Smoking History Never smoker (Never Smoked) [id number] SNOMED CT Sex Male Hospital Discharge Instructions [...]
--- OUTSIDE RECORDS SUMMARY | 2024-07-07 11:37 | XMS_ITS ---
Author Organization Unknown Address [address] [place] [phone] Phone Care Team Providers Care Branch Controller Name Role Phone GREG GEORGE Attending Unavailable [...] RSV PCR - Collect Date/Time: 06/28/2024 04:30 [facility] ID: [id number] [address] [place], [place], [id number] LOINC: 28864-6 Test Value Unit Reference Range Code Code System Flag SARS CoV2 PCR NEGATIVE FLU A PCR POSITIVE A FLU B PCR NEGATIVE RSV PCR NEGATIVE SEND TO [facility]? YES Social History Type Status Start Date End Date Code Code Syst em Smoking History Never smoker (Never Smoked) 857125109 SNOMED CT Sex Male Hospital Discharge Instructions Should you have any questions prior to discharge, please contact a member of your healthcare team. If you have left the hospital and have any questions, please contact your primary care physician. Reason For Referral No Data Found Plan of Treatment No Data Found Encounters Encounter Diagnosis Start Date Code Code Sys tem Influenza due to unidentifie d influenza virus with other respiratory manifestations 06/28/2024 SNOMED-CT Personal Care Team Section Performer Name Performer Role Active Date Inactive JOEL Wills PCP - Primary care physician 2021-12-05
[2024-07-07 11:42] LABS: Anion Gap 10 mmol/L (4-12); Blood Urea Nitrogen 18 mg/dL (7-18); Calcium 9.4 mg/dL (8.5-10.1); Carbon Dioxide 30 mmol/L (21-32); Chloride 101 mmol/L (98-108); Estimated Glomerular Filt Rate 39; Glucose 89 mg/dL (70-99); Osmolality Calculated 292 mOsm/kg (285-295); Potassium 4.9 mmol/L (3.5-5.1); Sodium 141 mmol/L (136-145)
== END 2024-07-07 10:40 | disposition home or self-care (01) ==
PROVIDERS: PCP Internal Medicine; Visit Provider Internal Medicine
DX: E86.0 Dehydration (principal)
CPT/HCPCS: 36415; 80048

== ENCOUNTER 2024-08-10 07:02 | Outpatient (CLI) | payer MEDICARE, SELFPAY ==
--- OUTSIDE RECORDS SUMMARY | 2024-08-10 07:06 | XMS_ITS ---
Author Organization Unknown Address [address] [place] [phone] Phone Care Team Providers Care Mill Dresser Name Role Phone GREG GEORGE Attending Unavailable [...] DIFF - Collect Date/T naima: 03/23/2023 11:40 [facility] ID: [id number] [address] [place], [place], [phone] LOINC: 33123-4 Test Value Unit Reference Range Code Code System Flag WBC 15.2 10^3uL L=4.8 H=10.8 H RBC 3.62 10^6uL L=4.60 H=6.20 L HEMOGLOBIN 12.3 g/dL L=14.0 H=18.0 718-7 LOINC L HEMATOCRIT 38.4 VOL% L=42.0 H=52.0 4544-3 LOINC L MCV 106.1 fL L=80.0 H=94.0 H MCH 34.0 pg L=27.0 H=32.0 H MCHC 32.0 g/dL L=32.0 H=36.0 PLATELETS 201 10^3uL L=100 H=400 61515-4 LOINC RDW 13.1 % L=11.7 H=15.5 %GRAN 85.0 % L=40.0 H=70.0 77379-1 LOINC H %LYMPH 6.6 % L=20.0 H=45.0 736-9 LOINC L %MONO 6.6 % L=2.0 H=10.0 23683-3 LOINC %EOS 0.3 % L=0.0 H=6.0 713-8 LOINC %BASO 0.8 % L=0.0 H=3.0 706-2 LOINC #NEUT 12.9 10^3uL L=1.9 H=7.6 80865-9 LOINC H #LYMPH 1.0 10^3uL L=0.9 H=4.9 00048-4 LOINC #MONO 1.0 10^3uL L=0.1 H=0.9 22004-9 LOINC H #EOS 0.1 10^3uL L=0.0 H=0.6 712-0 LOINC #BASO 0.12 10^3uL L=0.00 H=0.10 80658-4 LOINC H #IM GRANS 0.1 10^3uL L=0.0 H=7.0 75294-9 LOINC %IM GRANS 0.7 % L=0.0 H=5.0 12433-2 LOINC %NRB 0.0 L=0.0 H=0.2 13354-1 LOINC #NRB 0.000 L=0.000 H=0.012 74677-3 LOINC MANUAL DIFF NOT INDICATED RBC MORPH NOT INDICATED COMPREHENSIVE METABOLIC PANE L - Collect Date/Time: 03/23/2023 11:40 [facility] ID: [id number] [address] [place], [place], [id number] LOINC: 07068-2 Test Value Unit Reference Range Code Code [...] 2028-9 LOINC ANION GAP 15 L=10 H=20 58410-3 LOINC OSMOLALITY 296 mOs/kG L=280 H=296 04410-9 LOINC BUN/CREAT 13.5 3097-3 LOINC CALCIUM 9.6 mg/dL L=8.3 H=10.5 32436-2 LOINC AST 37 U/L L=15 H=46 1920-8 LOINC ALT 31 U/L L=9 H=72 1742-6 LOINC ALKALINE PHOS 70 U/L L=38 H=126 6768-6 LOINC TOTAL BILI 1.3 mg/dL L=0.2 H=1.3 1975-2 LOINC ALBUMIN 4.7 G/dL L=3.5 H=5.0 1751-7 LOINC TOTAL PROTEIN 8.9 g/L L=6.3 H=8.2 2885-2 LOINC H A/G RATIO 1.1 28471-2 LOINC AGE 88 51262-7 LOINC eGFR NON-AFR 41 ml/min eGFR AFR AMER 50 ml/min PROTIME - Collect Date/Time: 03/23/2023 11:40 [facility] ID: [id number] [place] [address], [id number] LOINC: 65695-6 Test Value Unit Reference Range Code Code System Flag PT 10.4 Sec L=9.1 H=11.5 13646-8 LOINC INR 1.0 Sec L=0.9 H=1.1 60669-7 LOINC PTT - Collect Date/Time: 11:40 [facility] ID: [id number] [place] [address], [id number] LOINC: 36067-2 Test Value Unit Reference Range Code Code System Flag PTT 23.8 Sec L=23.0 H=29.4 CT ABD/PEL W/ CONTRAST - Com pleted: 03/23/2023 11:28 LOINC: 67292-3 EXAM DESCRIPTION: CT CHEST/LUNG W/ CONTRAST; CT [...] Bienvenido Wolfe M.D. JS: MARILEE Report ID: [id number] Reading Location: [id number] CT BRAIN WO CONTRAST - Compl eted: [...] Ant Enriquez M.D. NORMA: NORMA Report ID: [id number] Reading Location: [id number] CT CERVICAL SPINE WO CONTRAS T - [...] Ant Enriquez M.D. NORMA: NORMA Report ID: [id number] Reading Location: [id number] CT CHEST/LUNG W/ CONTRAST - Completed: 03/23/2023 [...] Bienvenido Wolfe M.D. JS: MARILEE Report ID: [id number] Reading Location: [id number] Social History Type Status Start Date End Date Code Code Syst em Smoking History Never smoker (Never Smoked) [id number] SNOMED CT Sex Male Hospital Discharge Instructions [...]
--- OUTSIDE RECORDS SUMMARY | 2024-08-10 07:06 | XMS_ITS ---
Author Organization Unknown Address [address] [place] [phone] Phone Care Team Providers Care Hair And Makeup Designer Name Role Phone GREG GEORGE Attending Unavailable [...] RSV PCR - Collect Date/Time: 06/28/2024 04:30 [facility] [address] ID: [id number] [address] [place], [place], [phone] LOINC: 95523-2 Test Value Unit Reference Range Code Code System Flag SARS CoV2 PCR NEGATIVE FLU A PCR POSITIVE A FLU B PCR NEGATIVE RSV PCR NEGATIVE SEND TO [facility]? YES Social History Type Status Start Date End Date Code Code Syst em Smoking History Never smoker (Never Smoked) [id number] SNOMED CT Sex Male Hospital Discharge Instructions [...]
--- OUTSIDE RECORDS SUMMARY | 2024-08-10 07:06 | XMS_ITS | Clinical Summary ---
Author Organization [facility] Address [facility] [place] [address] Care Team Providers Care Healthcare Specialist Name Role Phone Unavailable Primary Care Provider [...]
[2024-08-10 07:19] LABS: Hematocrit 40.1 % (37.0-46.0); Hemoglobin 12.7 g/dL (12.4-15.3); Mean Corpuscular HGB Conc 31.7 g/dL (32-36); Mean Corpuscular Hemoglobin 33.5 pg (27.0-31.0); Mean Corpuscular Volume 105.8 fL (78.0-102.0); Mean Platelet Volume 9.9 fl (8.7-11.0); Platelet Count Result 232 K/mm3 (150-420); Red Blood Count 3.79 M/mm3 (4.70-6.10); Red Cell Distribution Width 12.8 % (11.6-14.4)
[2024-08-10 07:20] LABS: Add Urine Microscopic? YES; Appearance Urine Clear (Clear); Bilirubin Urine Negative (Negative); Blood Urine Negative (Negative); Color Urine Light Yellow (Yellow); Glucose Urine UA Negative (Negative); Ketones Urine Negative (Negative); Leukocyte Esterase Ur 1+ LEU/UL (Negative); Nitrate Urine Negative (Negative); Protein Urine Negative (Negative); Urobilinogen Urine 0.2 mg/dL (0.2-1.0)
[2024-08-10 07:27] LABS: Bacteria Urine Rare /hpf; RBC Urine 0-2 /hpf (0-2); Squamous Epithelial Cell Urine Occasional /hpf (Few); WBC Urine 0-3 /hpf (0-3)
[2024-08-10 08:07] LABS: Alanine Aminotransferase 22 U/L (16-63); Albumin Level 4.1 g/dL (3.4-5.0); Alkaline Phosphatase 104 U/L (46-116); Anion Gap 6 mmol/L (4-12); Aspartate Amino Transferase 22 U/L (15-37); Bilirubin,Total 0.6 mg/dL (0.00-1.00); Blood Urea Nitrogen 20 mg/dL (7-18); Calcium 9.4 mg/dL (8.5-10.1); Carbon Dioxide 31 mmol/L (21-32); Chloride 104 mmol/L (98-108); Cholesterol 186 mg/dL (0-200); Estimated Glomerular Filt Rate 37; Glucose 108 mg/dL (70-99); HDL Direct 59 mg/dL (40-60); LDL Cholesterol Calculated 109 mg/dL (<130); Osmolality Calculated 295 mOsm/kg (285-295); Potassium 4.8 mmol/L (3.5-5.1); Sodium 141 mmol/L (136-145); Total Protein 8.3 g/dL (6.4-8.2); Triglycerides 88 mg/dL (0-150)
== END 2024-08-10 07:03 | disposition home or self-care (01) ==
LOC: CHSLAB 07:04
PROVIDERS: PCP Internal Medicine; Visit Provider Internal Medicine
DX: N18.30 Chronic kidney disease, stage 3 unspecified (principal); I12.9 Hypertensive chronic kidney disease with stage 1 through stage 4 chronic kidney disease, or unspecified chronic kidney disease; R73.01 Impaired fasting glucose; E78.2 Mixed hyperlipidemia; N13.70 Vesicoureteral-reflux, unspecified
CPT/HCPCS: 36415; 80053; 80061; 81001; 83036; 85027; 87086

== ENCOUNTER 2025-02-15 07:26 | Outpatient (CLI) | payer MEDICARE, SELFPAY ==
[2025-02-15 07:38] LABS: Hematocrit 40.9 % (37.0-46.0); Hemoglobin 13.1 g/dL (12.4-15.3); Mean Corpuscular HGB Conc 32.0 g/dL (32-36); Mean Corpuscular Hemoglobin 33.2 pg (27.0-31.0); Mean Corpuscular Volume 103.5 fL (78.0-102.0); Platelet Count Result 196 K/mm3 (150-420); Red Blood Count 3.95 M/mm3 (4.70-6.10); White Blood Count 8.7 K/mm3 (4.8-10.8)
[2025-02-15 07:39] LABS: Add Urine Microscopic? YES; Appearance Urine Clear (Clear); Glucose Urine UA Negative (Negative); Leukocyte Esterase Ur Trace LEU/UL (Negative); Nitrate Urine Negative (Negative); Specific Grav Ur 1.015 (1.010-1.020)
[2025-02-15 08:10] LABS: Hemoglobin A1C 5.8 % (<5.7)
[2025-02-15 08:30] LABS: Anion Gap 9 mmol/L (4-12)
[2025-02-15 08:55] LABS: Alanine Aminotransferase 16 U/L (6-50); Albumin Level 4.6 g/dL (3.5-5.1); Alkaline Phosphatase 72 U/L (38-126); Aspartate Amino Transferase 31 U/L (17-59); Bilirubin,Total 0.8 mg/dL (0.2-1.3); Blood Urea Nitrogen 17 mg/dL (9-20); Calcium 9.7 mg/dL (8.4-10.2); Carbon Dioxide 28 mmol/L (22-30); Chloride 104 mmol/L (98-107); Cholesterol 191 mg/dL (0-200); Creatine Kinase 147 U/L (55-170); Estimated Glomerular Filt Rate 36; Glucose 110 mg/dL (65-110); HDL Direct 55 mg/dL; Osmolality Calculated 294 mOsm/kg (285-295); Potassium 5.0 mmol/L (3.4-5.0); Sodium 141 mmol/L (137-145); Total Protein 9.7 g/dL (6.3-8.2); Triglycerides 142 mg/dL (<150)
== END 2025-02-15 07:27 | disposition home or self-care (01) ==
LOC: CHSLAB 07:27
PROVIDERS: PCP Internal Medicine; Visit Provider Internal Medicine
DX: I12.9 Hypertensive chronic kidney disease with stage 1 through stage 4 chronic kidney disease, or unspecified chronic kidney disease (principal); N18.4 Chronic kidney disease, stage 4 (severe); E78.2 Mixed hyperlipidemia; N39.0 Urinary tract infection, site not specified; R73.01 Impaired fasting glucose
CPT/HCPCS: 36415; 80053; 80061; 81001; 82550; 83036; 85027